=== PATIENT | female | born 1965 | race American Indian/Alaskan Native ===

== ENCOUNTER 2017-01-22 09:26 | Day surgery (SDC) | payer OTHER ==
[2017-01-22] MEDS ORDERED: NACL 0.9% 1000 ML 1,000 ML IV SCH (10:00)
[2017-01-22] MEDS ORDERED: VERSED IV NR (10:00)
[2017-01-22] MEDS ORDERED: PEPCID PO NR (10:00)
[2017-01-22] MEDS ORDERED: DILAUDID IV PRN (10:09)
--- NOTE | 2017-01-22 10:11 | Anesthesia Day of Surgery ---
Anesthesia Day of Surgery - Day of Surgery Patient Examined: Yes Patient H&P Reviewed: Yes Patient is NPO: Yes Beta Blockers: Yes
--- NOTE | 2017-01-22 10:11 | Anesthesia Consultation ---
Anesthesia Consult and Med Hx Date of service: 01/22/17 - Airway Anesthetic Teeth Evaluation: Good ROM Head & Neck: Adequate Mental/Hyoid Distance: Adequate Mallampati Class: Class II Intubation Access Assessment: Probably Good - Pulmonary Exam CTA: Yes - Cardiac Exam Cardiac Exam: RRR - Pre-Operative Health Status ASA Pre-Surgery Classification: ASA4 Proposed Anesthetic Plan: General - Pulmonary Hx Smoking: No Hx Asthma: No Hx Sleep Apnea: No - Cardiovascular System Hx Hypertension: Yes (EF 55-60% (2015)) Hx Coronary Artery Disease: Yes Hx Heart Attack/AMI: Yes (2013) Hx Percutaneous Transluminal Coronary Angioplasty (PTCA): Yes (05-25-14, STENT X 2 ) - Central Nervous System 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
[2017-01-22] MEDS ORDERED: ZOFRAN IV PRN ×2 (11:00→18:55)
[2017-01-22] MEDS ORDERED: ANCEF/STERILE WATER 2 GM/20 ML IV NR (11:00)
[2017-01-22 11:29] LABS: Hematocrit 36.9 % (30.3-42.9); Hemoglobin 12.5 gm/dl (10.1-14.3)
[2017-01-22 11:45] LABS: BUN/Creatinine Ratio 22.5; Calcium 9.6 mg/dL (8.4-10.2); Chloride 102.2 mmol/L (98-107); Potassium 4.6 mmol/L (3.6-5.0)
[2017-01-22] MEDS ORDERED: DILAUDID IV ONE (14:55)
[2017-01-22] MEDS ORDERED: DIPRIVAN 10 MG/ML IV ONE (15:22)
[2017-01-22] MEDS ORDERED: DILAUDID ONE (15:22)
[2017-01-22] MEDS ORDERED: XYLOCAINE MPF 2% ONE (15:28)
[2017-01-22] MEDS ORDERED: NACL 0.9% 500 ML 500 ML ONE (16:39)
[2017-01-22] MEDS ORDERED: MARCAINE 0.5% 30 ML INFILTRATI ONE (16:39)
[2017-01-22] MEDS ORDERED: HEPARIN 10,000 UNITS/10 ML ONE (16:40)
[2017-01-22] MEDS ORDERED: ZOFRAN ONE ×2 (17:06→19:01)
[2017-01-22] MEDS ORDERED: ROBINUL ONE (17:13)
[2017-01-22] MEDS ORDERED: ePHEDrine SULFATE ONE (17:25)
[2017-01-22] MEDS ORDERED: MARCAINE 0.5% INFILTRATI ONE (17:25)
[2017-01-22] MEDS ORDERED: NACL 0.9% IR ONE (17:26)
[2017-01-22] MEDS ORDERED: HEPARIN 10,000 UNITS/10 ML 2,000 UNIT in NACL 0.9% 500 ML 500 ML IR ONE (17:26)
--- NOTE | 2017-01-22 18:00 | Short Stay Summary ---
Short Stay Documentation Date of service: 01/22/17 Narrative H&P: See H&P - History H&P: obtained from office - Allergies and Medications Current Medications: Allergies Iodinated Contrast Media - IV Dye Allergy (Verified 01/15/17 12:44) RENAL FAILURE Sulfa (Sulfonamide Antibiotics) Allergy (Verified 05/25/14 10:39) Swelling Home Medications Medication Instructions Recorded Confirmed Last Taken Type Aspirin EC [Aspirin Enteric Coated 325 mg PO QDAY #30 tablet 06/01/14 01/22/17 01/22/17 05:30 Rx TAB] Rosuvastatin (Nf) [Crestor] 20 mg PO QHS #30 tablet 06/01/14 01/22/17 01/22/17 05:30 Rx glipiZIDE [Glucotrol] 10 mg PO QDAY 07/02/14 01/22/17 01/21/17 08:00 History amLODIPine [Norvasc] 10 mg PO QDAY #30 tablet 07/05/14 01/22/17 01/22/17 05:30 Rx Clopidogrel [Plavix] 75 mg PO QDAY #30 tablet 07/18/16 01/22/17 01/22/17 05:30 Rx Simvastatin [Zocor TAB] 20 mg PO QHS #30 tablet 07/18/16 01/22/17 01/22/17 05: 30 Rx Furosemide [Lasix TAB] 80 mg PO QDAY 01/15/17 01/22/17 01/22/17 05:30 History Metoprolol [Lopressor TAB] 50 mg PO BID 01/15/17 01/22/17 01/22/17 05:30 History hydrALAZINE [Apresoline TAB] 25 mg PO TID 01/15/17 01/22/17 01/22/17 05:30 History Active Medications Cefazolin Sodium (Ancef/Sterile Water 2 Gm/20 Ml) 2 gm IV PREOP NR Stop: 01/22/17 23:01 Hydromorphone HCl (Dilaudid) 0.5 mg IV Q10MIN PRN PRN Reason: Pain , Severe (7-10) Stop: 01/25/17 16:40 Sodium Chloride (Nacl 0.9% 1000 Ml) 1,000 mls @ 75 mls/hr IV DIRECT SELENA Last Admin: 01/22/17 10:54 Dose: 75 mls/hr Midazolam HCl (Versed) 2 mg IV PREOP NR Stop: 01/22/17 23:59 Last Admin: 01/22/17 10:56 Dose: 2 mg - Brief post op/procedure progress note Date of procedure: 01/22/17 Pre-op diagnosis: End-Stage Renal Disease Post-op diagnosis: same Procedure: Creation of Left Brachial Basilic Arteriovenous Fistula Anesthesia: GETA Surgeon: MARIA ESTHER ARMSTRONG Estimated blood loss: minimal Pathology: none Condition: stable - Disposition Condition at discharge: Good Disposition: DC-01 TO HOME OR SELFCARE Short Stay Discharge Plan Activity: other (no heavy lifting with left arm) Wound: open to air, keep clean and dry, other (okay to wash the wound with soap and water but do not soak in water) Follow up with: PRIMARY CARE, [Primary Care Provider] - 7 Days MARIA ESTHER ARMSTRONG MD [Staff Physician] - 14 Days Prescriptions: HYDROcodone/APAP 7.5-325 [Hale 7.5/325] 1 each PO Q6HR PRN #50 tablet PRN Reason: Pain
--- NOTE | 2017-01-22 18:02 | Operative Report ---
Operative Report Operative Report: Date of procedure: 01/22/2017 Pre-operative diagnosis: End-stage Renal Disease Post-operative diagnosis: End-stage Renal Disease Procedure(s): Creation of Left Brachial Artery to Basilic Arteriovenous Fistula Surgeon: Josué Cohen MD [employer] Professor: None Anesthesia: Gen. endotracheal anesthesia EBL: Minimal Counts: Correct Complications: None Condition: Stable Findings: Successful creation of left brachial basilic arteriovenous fistula with palpable thrill at the end of the case. Specimen: None Indication: The patient is a 51-year-old female with history of end-stage renal disease in need of long-term access. Vein mapping demonstrated she was a candidate for creation of a fistula so she was given the risks, benefits, and alternative procedures and consented to procedure. Description of Procedure: The patient was brought to the operating room and laid in supine position after general endotracheal anesthesia was administered the patient was prepped and draped in normal sterile fashion. After anesthetizing the skin a transverse incision was created just below the antecubital crease. Dissection was carried down to the the basilic vein using sharp dissection. The vein was dissected out both proximally and distally and suture ligated and divided distally. I then ran a 3 Karli proximally in the vein, to ensure patency of the vein. I then flushed the vein with heparinized saline and controlled flow with a bulldog clamp. I then dissected out the brachial artery through this incision circumferentially both proximal and distal and controlled th artery with vessel loops. I placed the vessel loops on tension, controlling the flow through the artery, and created an arteriotomy using an 11 blade and Matt scissors. I created an end to side anastomosis between the basilic vein and brachial artery using a 6-0 Prolene in running fashion. Prior to completing the anastomosis I flushed the artery both proximally and distally and then advanced a 3 Karli proximally to break the spasm in the artery. I completed the anastomosis and removed all vessel loops allowing flow into the fistula which had an excellent thrill. I achieved hemostasis with a combination of direct pressure and electrocautery. Once hemostasis was achieved I anesthetized the wound with Marcaine. I closed the wound in 2 layers using 3-0 Vicryl in a running fashion to close the deep dermal layer and 4-0 Monocryl in a running fashion in the subcuticular layer. I dressed the wound with Surgicel. The patient tolerated the procedure well, all sponge needle and instrument counts were correct. The patient was taken to recovery in stable condition.
--- NOTE | 2017-01-22 18:15 | Post Anesthesia Evaluation ---
- Post Anesthesia Evaluation Patient Participated: Yes Airway Patent: Yes Stable Respiratory Function: Yes Nausea/Vomiting: No Temp > 96.8F: Yes Pain Manageable: Yes Adequeate Hydration: Yes Anesthesia Complications: No Block Receding Appropriately: Not Applicable Patient on Ventilator: No
[2017-01-22] MEDS ORDERED: APRESOLINE ONE ×2 (18:18→18:19)
[2017-01-22] MEDS ORDERED: APRESOLINE IV PRN (18:34)
[2017-01-22] MEDS: DILAUDID IV PRN ×2 (18:53→18:55)
[2017-01-22] MEDS ORDERED: REGLAN IV PRN (19:37)
[2017-01-22 20:51] VITALS: BP 176/85
== END 2017-01-22 20:25 | disposition home or self-care (01) ==
LOC: OR 09:26
PROVIDERS: ATTEND Surgery Vascular Surgery
DX: E11.22 Type 2 diabetes mellitus with diabetic chronic kidney disease (principal); I12.0 Hypertensive chronic kidney disease with stage 5 chronic kidney disease or end stage renal disease; N18.6 End stage renal disease; I25.10 Atherosclerotic heart disease of native coronary artery without angina pectoris; D64.9 Anemia, unspecified; E66.9 Obesity, unspecified; Z68.41 Body mass index [BMI] 40.0-44.9, adult; Z95.5 Presence of coronary angioplasty implant and graft; Z86.73 Personal history of transient ischemic attack (TIA), and cerebral infarction without residual deficits; Z87.19 Personal history of other diseases of the digestive system; Z88.1 Allergy status to other antibiotic agents; Z88.2 Allergy status to sulfonamides; Z91.041 Radiographic dye allergy status; Z79.899 Other long term (current) drug therapy; Z79.84 Long term (current) use of oral hypoglycemic drugs; Z90.49 Acquired absence of other specified parts of digestive tract; Z90.710 Acquired absence of both cervix and uterus; Z83.3 Family history of diabetes mellitus; Z82.49 Family history of ischemic heart disease and other diseases of the circulatory system
CPT/HCPCS: 36415; 36821; 80048; 82962; 85014; 85018; C1757; J0360; J1170; J1644; J2250; J2405; J2704; J2765; J7030; J7040

== ENCOUNTER 2018-04-05 10:40 | Day surgery (SDC) | payer OTHER ==
[~2018-04-05 10:40] MED LIST: ANCEF/STERILE WATER 2 GM/20 ML 2 GM/20 ML SYRINGE IV NR; NACL 0.9% 1000 ML 1,000 ML IV SCH
[2018-04-05] MEDS ORDERED: HumuLIN R IV ONE ×2 (11:57→14:30)
[2018-04-05 12:07] LABS: Basophils # (Auto) 0.1 K/mm3 (0.0-0.1); Basophils % (Auto) 0.8 % (0.0-1.8); Eosinophils # (Auto) 0.2 K/mm3 (0.0-0.4); Eosinophils % (Auto) 1.9 % (0.0-4.3); Hematocrit 35.4 % (30.3-42.9); Lymphocytes # (Auto) 1.2 K/mm3 (1.2-5.4); Lymphocytes % (Auto) 14.2 % (13.4-35.0); Mean Corpuscular HGB Conc 34 % (30-34); Mean Corpuscular Hemoglobin 29 pg (28-32); Mean Corpuscular Volume 86 fl (79-97); Monocytes # (Auto) 0.6 K/mm3 (0.0-0.8); Monocytes % (Auto) 6.9 % (0.0-7.3); Platelet Count 255 K/mm3 (140-440); Red Blood Count 4.13 M/mm3 (3.65-5.03); Red Cell Distribution Width 12.8 % (13.2-15.2)
[2018-04-05 12:29] LABS: Calcium 11.1 mg/dL (8.4-10.2)
--- NOTE | 2018-04-05 12:41 | Anesthesia Day of Surgery ---
Anesthesia Day of Surgery - Day of Surgery Patient Examined: Yes Patient H&P Reviewed: Yes Patient is NPO: Yes Beta Blockers: Yes Cardiac Clearance: Yes
--- NOTE | 2018-04-05 12:41 | Anesthesia Consultation ---
Anesthesia Consult and Med Hx Date of service: 04/05/18 - Airway Anesthetic Teeth Evaluation: Good ROM Head & Neck: Adequate Mental/Hyoid Distance: Adequate Mallampati Class: Class I Intubation Access Assessment: Probably Good - Pulmonary Exam CTA: Yes - Cardiac Exam Cardiac Exam: RRR - Pre-Operative Health Status ASA Pre-Surgery Classification: ASA3 Proposed Anesthetic Plan: General - Pulmonary Hx Respiratory Symptoms: No COPD: No - Cardiovascular System Hx Hypertension: Yes Hx Coronary Artery Disease: Yes Hx Heart Attack/AMI: Yes (2013 x2) Hx Percutaneous Transluminal Coronary Angioplasty (PTCA): Yes (PCI to LAD and RCA 2013) Hx Cardia Arrhythmia: No Hx Pacemaker: No - Central Nervous System CVA: Yes (10/2016; no residual weakness) Hx Psychiatric Problems: No - Gastrointestinal Hx Ulcer: Yes Hx Gastroesophageal Reflux Disease: Yes - Endocrine Hx Renal Disease: Yes (CKD 4; has not started HD) Hx Non-Insulin Dependent Diabetes: Yes Hx Thyroid Disease: No - Hematic Hx Anemia: Yes - Other Systems Hx Cancer: No Hx Obesity: Yes - Additional Comments Anesthesia Medical History Comments: TTE 07/2017: normal EF, mild MR. Nuclear stress test 10/2017: apical infarct. Otherwise normal perfusion study. Hx severe PONV with previous anesthetics.
[2018-04-05] MEDS ORDERED: HumuLIN R IV NR (12:56)
[2018-04-05] MEDS ORDERED: REGLAN IV NR (13:00)
[2018-04-05] MEDS ORDERED: VERSED IV NR (13:00)
[2018-04-05] MEDS ORDERED: ZOFRAN IV NR (13:00)
[2018-04-05] MEDS ORDERED: TRANSDERM-SCOP TD NR (13:00)
[2018-04-05] MEDS ORDERED: DILAUDID ONE (13:18)
[2018-04-05 15:16] VITALS: BP 110/60
--- NOTE | 2018-04-05 16:30 | Consultation ---
History of Present Illness - Reason for Consult Consult date: 04/05/18 Requesting physician: MARIA ESTHER ARMSTRONG - History of Present Illness 52 YO Female with DM, Obesity, CKD, Anemia, HTN, MS presents to outpatient surgery for vascular intervention. Consult placed for medical management of uncontrolled diabetes. Pt found to have a serum glucose of 493 preoperatively. Surgical procedure cancelled. Pt seen and evaluated in preop. Pt denies fever, chills, CP, Palpitations, NVD, syncope, trauma, or recent ill contacts. Pt treated with Insulin therapy, IVF resuscitation. Pt serum glucose normalized over several hours with supportive care and glucose monitoring. Past History Past Medical History: CAD, diabetes, hypertension, renal failure Past Surgical History: PTCA, Other Social history: single, lives with family. denies: smoking, alcohol abuse, prescription drug abuse Family history: diabetes, hypertension Medications and Allergies Allergies Allergy/AdvReac Type Severity Reaction Status Date / Time Iodinated Contrast- Oral and Allergy RENAL Verified 04/04/18 13:05 IV Dye FAILURE Sulfa (Sulfonamide Allergy Swelling Verified 04/04/18 13:05 Antibiotics) Home Medications Medication Instructions Recorded Confirmed Last Taken Type Aspirin EC [Aspirin Enteric Coated 325 mg PO QDAY #30 tablet 06/01/14 04/04/18 04/05/18 09:00 Rx TAB] glipiZIDE [Glucotrol] 10 mg PO BID 07/02/14 04/04/18 04/04/18 History Simvastatin [Zocor TAB] 20 mg PO QHS #30 tablet 07/18/16 04/04/18 04/04/18 Rx Furosemide [Lasix TAB] 80 mg PO BID 01/15/17 04/04/18 04/04/18 History Metoprolol [Lopressor TAB] 50 mg PO BID 01/15/17 04/04/18 04/05/18 09:00 History hydrALAZINE [Apresoline TAB] 25 mg PO TID 01/15/17 04/04/18 04/05/18 09:00 History Calcitriol [Rocaltrol] 1 tab PO DAILY 04/05/18 04/05/18 04/05/18 09:00 History Cholecalciferol (Vitamin D3) 50,000 unit PO 1XW 04/05/18 04/05/18 04/03/18 History [Vitamin D3] Active Meds: Active Medications Cefazolin Sodium (Ancef/Sterile Water 2 Gm/20 Ml) 2 gm in 20 mls @ 80 mls/hr IV PREOP NR; Protocol Stop: 04/05/18 21:00 Sodium Chloride (Nacl 0.9% 1000 Ml) 1,000 mls @ 42 mls/hr IV DIRECT SELENA Last Admin: 04/05/18 11:45 Dose: 42 mls/hr Insulin Human Regular (Humulin R) 15 units IV ONCE ONE Stop: 04/05/18 14:31 Last Admin: 04/05/18 14:18 Dose: 15 units Metoclopramide HCl (Reglan) 10 mg IV PREOP NR Stop: 04/05/18 23:59 Last Admin: 04/05/18 13:22 Dose: 10 mg Midazolam HCl (Versed) 2 mg IV PREOP NR Stop: 04/05/18 23:59 Ondansetron HCl (Zofran) 4 mg IV PREOP NR Stop: 04/05/18 23:59 Last Admin: 04/05/18 13:20 Dose: 4 mg Scopolamine (Transderm-Scop) 1 each TD PREOP NR Stop: 04/05/18 23:59 Last Admin: 04/05/18 13:42 Dose: 1 each Review of Systems Constitutional: no weight loss, no weight gain, no fever, no chills Ears, nose, mouth and throat: no ear pain, no ear discharge, no tinnitis, no decreased hearing, no nose pain Breasts: no change in shape, no swelling, no mass Cardiovascular: no chest pain, no orthopnea, no palpitations, no rapid/ irregular heart beat, no edema, no syncope Respiratory: no cough, no cough with sputum, no excessive sputum, no hemoptysis , no shortness of breath Gastrointestinal: no abdominal pain, no nausea, no vomiting, no diarrhea, no change in bowel habits, no hematemesis Genitourinary Female: no dyspareunia, no dysmenorrhea, no pelvic pain Rectal: no pain, no incontinence, no bleeding Musculoskeletal: no neck stiffness, no neck pain, no arm numbness/tingling, no low back pain Integumentary: no rash, no pruritis, no redness, no sores, no wounds Neurological: no head injury, no transient paralysis, no paralysis, no weakness , no parathesias, no numbness, no tingling Psychiatric: no anxiety, no memory loss, no change in sleep habits, no sleep disturbances, no insomnia, no hypersomnia Endocrine: no cold intolerance, no heat intolerance, no polyphagia, no excessive thirst, no polydipsia, no polyuria, no nocturia Hematologic/Lymphatic: no easy bruising, no easy bleeding, no lymphadenopathy, no lymphedema Allergic/Immunologic: no urticaria, no allergic rhinitis, no wheezing, no persistent infections, no anaphylaxis Exam - Constitutional Vitals: Temp Pulse Resp BP Pulse Ox 97.4 F L 73 14 110/60 98 04/05/18 15:10 04/05/18 15:10 04/05/18 15:10 04/05/18 15:10 04/05/18 15:10 General appearance: Present: no acute distress, well-nourished - EENT Eyes: Present: PERRL ENT: hearing intact, clear oral mucosa - Neck Neck: Present: supple, normal ROM - Respiratory Respiratory effort: normal Respiratory: bilateral: CTA - Cardiovascular Heart Sounds: Present: S1 & S2. Absent: rub, click - Extremities Extremities: pulses symmetrical, No edema Peripheral Pulses: within normal limits - Abdominal General gastrointestinal: Present: soft, non-tender, non-distended, normal bowel sounds Female genitourinary: Present: normal - Integumentary Integumentary: Present: clear, warm, dry - Musculoskeletal Musculoskeletal: gait normal, strength equal bilaterally - Psychiatric Psychiatric: appropriate mood/affect, intact judgment & insight - Neurologic Neurologic: CNII-XII intact, moves all extremities Results - Labs CBC & Chem 7: 04/05/18 11:40 04/05/18 15:20 Labs: Abnormal lab results 04/05/18 04/05/18 04/05/18 Range/Units 11:40 11:40 11:51 RDW 12.8 L (13.2-15.2) % Seg Neutrophils % 76.2 H (40.0-70.0) % Sodium 134 L (137-145) mmol/L Chloride 92.1 L (98-107) mmol/L BUN 108 H (7-17) mg/dL Creatinine 5.6 H (0.7-1.2) mg/dL Glucose 493 H (65-100) mg/dL POC Glucose 458 H (70-105) Calcium 11.1 H (8.4-10.2) mg/dL 04/05/18 04/05/18 04/05/18 Range/Units 12:51 13:59 15:27 RDW (13.2-15.2) % Seg Neutrophils % (40.0-70.0) % Sodium (137-145) mmol/L Chloride (98-107) mmol/L BUN (7-17) mg/dL Creatinine (0.7-1.2) mg/dL Glucose (65-100) mg/dL POC Glucose 404 H 327 H 197 H (70-105) Calcium (8.4-10.2) mg/dL Assessment and Plan - Patient Problems (1) Uncontrolled diabetes mellitus Status: Acute Qualifiers: Glycemic state: with hyperglycemia Plan to address problem: IV insulin therapy, accu check q 4 hrs, IVF resustitation, CMP, Pt D/C home with sq insulin, f/u pcp 3-5 days with glucose log tid.
== END 2018-04-05 17:22 | disposition home or self-care (01) ==
LOC: OR 10:40
PROVIDERS: ATTEND Surgery Vascular Surgery
DX: I12.0 Hypertensive chronic kidney disease with stage 5 chronic kidney disease or end stage renal disease (principal); E11.22 Type 2 diabetes mellitus with diabetic chronic kidney disease; N18.6 End stage renal disease; E11.65 Type 2 diabetes mellitus with hyperglycemia; I25.10 Atherosclerotic heart disease of native coronary artery without angina pectoris; E78.00 Pure hypercholesterolemia, unspecified; I25.2 Old myocardial infarction; E66.9 Obesity, unspecified; Z68.37 Body mass index [BMI] 37.0-37.9, adult; Z88.2 Allergy status to sulfonamides; Z86.73 Personal history of transient ischemic attack (TIA), and cerebral infarction without residual deficits; Z86.2 Personal history of diseases of the blood and blood-forming organs and certain disorders involving the immune mechanism; Z88.8 Allergy status to other drugs, medicaments and biological substances; Z79.899 Other long term (current) drug therapy; Z79.82 Long term (current) use of aspirin; Z83.3 Family history of diabetes mellitus; Z98.890 Other specified postprocedural states; Z90.710 Acquired absence of both cervix and uterus; Z90.49 Acquired absence of other specified parts of digestive tract; Z53.8 Procedure and treatment not carried out for other reasons
CPT/HCPCS: 36415; 80048; 82962; 84132; 85025; J0690; J1170; J2405; J2765; J7030; J1815

== ENCOUNTER 2019-11-17 10:30 | Observation (INO) | payer OTHER ==
[2019-11-17] MEDS ORDERED: ASPIRIN 325 MG TAB PO ONE (10:54)
[2019-11-17] MEDS ORDERED: MORPHINE 2 MG/1 ML INJ IV ONE (11:34)
[2019-11-17] MEDS ORDERED: NITROGLYCERIN 2% OINT 1 GM TP ONE (11:34)
[2019-11-17] MEDS ORDERED: ONDANSETRON 4 MG/2 ML INJ IV ONE (11:34)
[2019-11-17 12:14] LABS: Basophils # (Auto) 0.1 K/mm3 (0.0-0.1); Basophils % (Auto) 0.8 % (0.0-1.8); Eosinophils # (Auto) 0.1 K/mm3 (0.0-0.4); Eosinophils % (Auto) 1.7 % (0.0-4.3); Hematocrit 42.8 % (30.3-42.9); Hemoglobin 14.5 gm/dl (10.1-14.3); Lymphocytes # (Auto) 1.2 K/mm3 (1.2-5.4); Lymphocytes % (Auto) 17.6 % (13.4-35.0); Mean Corpuscular HGB Conc 34 % (30-34); Mean Corpuscular Volume 95 fl (79-97); Monocytes # (Auto) 0.6 K/mm3 (0.0-0.8); Monocytes % (Auto) 9.1 % (0.0-7.3); Platelet Count 201 K/mm3 (140-440); Red Blood Count 4.52 M/mm3 (3.65-5.03); Red Cell Distribution Width 13.9 % (13.2-15.2)
[2019-11-17 12:22] LABS: INR 0.93 (0.87-1.13)
[2019-11-17 12:25] LABS: Partial Thromboplastin Time 26.4 Sec. (24.2-36.6)
[2019-11-17 12:35] LABS: Calcium 10.2 mg/dL (8.4-10.2)
[2019-11-17 12:58] LABS: Chol/HDL Ratio 2.87 %
--- NOTE | 2019-11-17 13:09 | Emergency Department Report ---
ED Chest Pain HPI - General Chief Complaint: Chest Pain Stated Complaint: CHEST PAIN Time Seen by Provider: 11/17/19 11:08 Source: patient, EMS Mode of arrival: Stretcher Limitations: No Limitations - History of Present Illness Initial Comments: This is a 53-year-old female who developed dull anterior chest pain which was nonradiating nonpleuritic at dialysis this morning. She states that she was given a nitroglycerin and the pain subsided. She was dialyzed. She believes that her treatment was completed. After her treatment she developed chest pain again which was more severe. She was last transported for emergency evaluation. Patient states that she had a myocardial infarction with 2 stents placed in the past. She was very nonspecific about exactly when this occurred. She states at that time she just had shortness of breath but no chest pain. Patient's chest pain today was described as a dull ache. There were no associated symptoms of diaphoresis, shortness of breath, nausea or vomiting. She presents to the emergency department with persistent pain. Discharge Summary 2016: Hospitalization Condition: Stable Hospital course: 50 YO Female admitted for malignant hypertension, and acute CVA. Pt atmitted to ICU and initiated on cardene drip. Pulmonary consulted. Pt hospital course complicated by renal failure. Nephrology team consulted. Neurology team consulted for acute stroke. Pt treated IA stroke protocol. Pt symptoms gradually improved during hospital course. Pt subsequently transferred to medical floor. Pt medically optimized. Pt evaluated prior to discharge but no significant new physical exam findings since admission. Pt discharged home with home health. Pt instructed to f/u pcp 1wk, and Nephrology and neurology as instructed 34 minutes dedicated to patient discharge and education. Pt counseled regarding increased physical activity, balanced diet, and increased physical activity. Disposition: DISCHARGED TO HOME OR SELFCARE - Discharge Diagnoses (1) CVA (cerebral vascular accident) Status: Acute Qualifiers: CVA mechanism: unspecified Qualified Code(s): I63.9 - Cerebral infarction, unspecified (2) DVT prophylaxis Status: Acute (3) Hyperglycemia Status: Acute (4) Diabetes mellitus, type 2 Status: Chronic (5) Obesity Status: Chronic Qualifiers: Obesity type: unspecified obesity type Obesity severity: morbid Qualified Code(s): E66.01 - Morbid (severe) obesity due to excess calories (6) Malignant hypertension Status: Acute MD Complaint: chest pain -: Gradual Onset: during rest Pain Location: substernal Pain Radiation: none Severity: moderate Severity scale (0 -10): 5 Quality: dull Consistency: constant (Now constant see history above) Improves With: nothing Worsens With: nothing re: denies: nausea, vomting, diaphoresis, dyspnea Other Symptoms: denies: cough, fever, syncope Treatments Prior to Arrival: nitroglycerin - Related Data On Oral Contraceptives: No (?) Home Medications Medication Instructions Recorded Confirmed Last Taken glipiZIDE [Glucotrol] 10 mg PO BID 07/02/14 04/04/18 04/04/18 Furosemide [Lasix TAB] 80 mg PO BID 01/15/17 04/04/18 04/04/18 Metoprolol [Lopressor TAB] 50 mg PO BID 01/15/17 04/04/18 04/05/18 09:00 hydrALAZINE [Apresoline TAB] 25 mg PO TID 01/15/17 04/04/18 04/05/18 09:00 Cholecalciferol (Vitamin D3) 50,000 unit PO 1XW 04/05/18 04/05/18 04/03/18 [Vitamin D3] calcitrioL [Rocaltrol] 1 tab PO DAILY 04/05/18 04/05/18 04/05/18 09:00 Previous Rx's Medication Instructions Recorded Last Taken Type Aspirin EC [Ecotrin] 325 mg PO QDAY #30 tablet 06/01/14 04/05/18 09:00 Rx Simvastatin (Nf) [Zocor TAB] 20 mg PO QHS #30 tablet 07/18/16 04/04/18 Rx Allergies Allergy/AdvReac Type Severity Reaction Status Date / Time Iodinated Contrast Media Allergy RENAL Verified 04/04/18 13:05 FAILURE Sulfa (Sulfonamide Allergy Swelling Verified 04/04/18 13:05 Antibiotics) Heart Score - HEART Score History: Moderately suspicious EKG: Non-specific Age: 45-65 Risk factors: > 3 risk factors or hx of atherosclerotic disease Troponin: 1-3x normal limit HEART Score: 6 - Critical Actions Critical Actions: 4-6 pts:12-16.6% risk of adverse cardiac event. Should be admitted ED Review of Systems ROS: Stated complaint: CHEST PAIN Other details as noted in HPI Constitutional: denies: chills, fever Eyes: denies: eye pain, eye discharge, vision change ENT: denies: ear pain, throat pain Respiratory: denies: cough, shortness of breath, wheezing Cardiovascular: as per HPI, chest pain. denies: palpitations Endocrine: no symptoms reported Gastrointestinal: denies: abdominal pain, nausea, diarrhea Genitourinary: denies: urgency, dysuria, discharge Musculoskeletal: denies: back pain, joint swelling, arthralgia Skin: denies: rash, lesions Neurological: denies: headache, weakness, paresthesias Psychiatric: denies: anxiety, depression Hematological/Lymphatic: denies: easy bleeding, easy bruising ED Past Medical Hx - Past Medical History Previous Medical History?: Yes Hx Hypertension: Yes Hx Heart Attack/AMI: Yes (2013 x2) Hx Diabetes: Yes Hx Renal Disease: Yes (ESRD on HD) Hx COPD: No Additional medical history: Fibromyalgia, gastric ulcer - Surgical History Past Surgical History?: Yes Hx Coronary Stent: Yes (x2) Hx Pacemaker: No Hx Cholecystectomy: Yes Additional Surgical History: boils/cysts removed - Social History Smoking Status: Never Smoker Substance Use Type: None - Medications Home Medications: Home Medications Medication Instructions Recorded Confirmed Last Taken Type Aspirin EC [Ecotrin] 325 mg PO QDAY #30 tablet 06/01/14 04/04/18 04/05/18 09:00 Rx glipiZIDE [Glucotrol] 10 mg PO BID 07/02/14 04/04/18 04/04/18 History Simvastatin (Nf) [Zocor TAB] 20 mg PO QHS #30 tablet 07/18/16 04/04/18 04/04/18 Rx Furosemide [Lasix TAB] 80 mg PO BID 01/15/17 04/04/18 04/04/18 History Metoprolol [Lopressor TAB] 50 mg PO BID 01/15/17 04/04/18 04/05/18 09:00 History hydrALAZINE [Apresoline TAB] 25 mg PO TID 01/15/17 04/04/18 04/05/18 09:00 History Cholecalciferol (Vitamin D3) 50,000 unit PO 1XW 04/05/18 04/05/18 04/03/18 History [Vitamin D3] calcitrioL [Rocaltrol] 1 tab PO DAILY 04/05/18 04/05/18 04/05/18 09:00 History ED Physical Exam - General Limitations: No Limitations General appearance: other (Uncomfortable) - Head Head exam: Present: atraumatic, normocephalic - Eye Eye exam: Present: normal appearance. Absent: scleral icterus - ENT ENT exam: Present: mucous membranes moist - Neck Neck exam: Present: normal inspection. Absent: tenderness, meningismus - Respiratory Respiratory exam: Present: normal lung sounds bilaterally. Absent: respiratory distress - Cardiovascular Cardiovascular Exam: Present: regular rate, normal rhythm. Absent: systolic murmur, diastolic murmur, rubs, gallop - GI/Abdominal GI/Abdominal exam: Present: soft, normal bowel sounds. Absent: distended, tenderness, guarding, rebound - Extremities Exam Extremities exam: Present: other (Functional fistula with thrill left arm) - Back Exam Back exam: Present: normal inspection - Neurological Exam Neurological exam: Present: alert, oriented X3, CN II-XII intact. Absent: motor sensory deficit - Psychiatric Psychiatric exam: Present: normal affect, anxious - Skin Skin exam: Present: warm, dry, intact, normal color. Absent: rash ED Course Vital Signs 11/17/19 11/17/19 11/17/19 10:45 11:47 13:10 Temperature 98.6 F Pulse Rate 92 H 88 Respiratory 16 16 Rate Blood Pressure 126/74 134/76 Blood Pressure 117/77 [Left] O2 Sat by Pulse 100 99 Oximetry - Reevaluation(s) Reevaluation #1: Troponin found to be elevated. Consult to [facility]. 11/17/19 13:12 11/17/19 13:19 Patient's chest pain has improved. Her blood pressure is stable. Awaiting cardiology consult. Hospitalist to admit. Review of the patient's previous troponins show some minor elevation but not to this degree. TEDDY score - Teddy Score Age > 65: (0) No Aspirin use within the Past 7 Days: (1) Yes 3 or more CAD Risk Factors: (1) Yes 2 or more Angina events in past 24 hrs: (1) Yes Known CAD with more than 50% Stenosis: (0) No Elevated Cardiac Markers: (1) Yes ST Deviation Greater than 0.5mm: (1) Yes TEDDY Score: 5 ED Medical Decision Making - Lab Data Result diagrams: 11/17/19 11:28 11/17/19 11:28 Laboratory Results - last 24 hr 11/17/19 11/17/19 11/17/19 11:28 11:28 11:48 WBC 6.7 RBC 4.52 Hgb 14.5 H Hct 42.8 MCV 95 MCH 32 MCHC 34 RDW 13.9 Plt Count 201 Lymph % (Auto) 17.6 [place] % (Auto) 9.1 H Eos % (Auto) 1.7 Baso % (Auto) 0.8 Lymph # 1.2 [place] # 0.6 Eos # 0.1 Baso # 0.1 Seg Neutrophils % 70.8 H Seg Neutrophils # 4.8 PT 12.6 INR 0.93 APTT 26.4 Sodium 141 Potassium 4.9 Chloride 90.5 L Carbon Dioxide 27 Anion Gap 28 BUN 26 H Creatinine 5.1 H Estimated GFR 11 BUN/Creatinine Ratio 5 Glucose 153 H Calcium 10.2 Troponin T 0.155 H* Triglycerides 91 Cholesterol 201 H LDL Cholesterol Direct 124 HDL Cholesterol 70 H Cholesterol/HDL Ratio 2.87 Laboratory Results - last 24 hr 11/17/19 11/17/19 11/17/19 11:28 11:28 11:48 WBC 6.7 RBC 4.52 Hgb 14.5 H Hct 42.8 MCV 95 MCH 32 MCHC 34 RDW 13.9 Plt Count 201 Lymph % (Auto) 17.6 [place] % (Auto) 9.1 H Eos % (Auto) 1.7 Baso % (Auto) 0.8 Lymph # 1.2 [place] # 0.6 Eos # 0.1 Baso # 0.1 Seg Neutrophils % 70.8 H Seg Neutrophils # 4.8 PT 12.6 INR 0.93 APTT 26.4 Sodium 141 Potassium 4.9 Chloride 90.5 L Carbon Dioxide 27 Anion Gap 28 BUN 26 H Creatinine 5.1 H Estimated GFR 11 BUN/Creatinine Ratio 5 Glucose 153 H Calcium 10.2 Troponin T 0.155 H* Triglycerides 91 Cholesterol 201 H LDL Cholesterol Direct 124 HDL Cholesterol 70 H Cholesterol/HDL Ratio 2.87 - EKG Data -: EKG Interpreted by Me EKG shows normal: sinus rhythm Rate: normal - Radiology Data Radiology results: image reviewed (No acute process) Critical care attestation.: If time is entered above; I have spent that time in minutes in the direct care of this critically ill patient, excluding procedure time. ED Disposition Clinical Impression: Acute coronary syndrome, End stage renal disease on dialysis, Diabetes 1.5, managed as type 2 Disposition: DC-09 OP ADMIT IP TO THIS HOSP Is pt being admited?: Yes Does the pt Need Aspirin: Yes Condition: Stable Instructions: Diabetes Mellitus Type 2 in Adults (ED) Time of Disposition: 13:21
[2019-11-17 13:25] LABS: Creatine Kinase MB 3.6 ng/mL (0.0-4.0)
[2019-11-17 13:27] LABS: Alanine Aminotransferase 23 units/L (7-56); Albumin 4.9 g/dL (3.9-5)
[2019-11-17 13:28] LABS: Bilirubin,Direct < 0.2 mg/dL (0-0.2)
--- NOTE | 2019-11-17 14:17 | XRay Report ---
CHEST 1 VIEW INDICATION / CLINICAL INFORMATION: MAIN: Chest Pain. COMPARISON: 07/02/2014 FINDINGS: SUPPORT DEVICES: None. HEART / MEDIASTINUM: No significant abnormality. LUNGS / PLEURA: No significant pulmonary or pleural abnormality. No pneumothorax. ADDITIONAL FINDINGS: No significant additional findings. IMPRESSION: 1. No acute findings. No interval change. Signer Name: Kaylynn Robledo MD Signed: 11/17/2019 2:12 PM Workstation Name: [id number]
--- NOTE | 2019-11-17 14:43 | Consultation ---
History of Present Illness Consult date: 11/17/19 Requesting physician: DREA DELGADILLO Consult reason: chest pain, elevated troponin History of present illness: The pt is a 53 YO female with a past medical history of CAD s/p PCI, HTN, DM, HLP, ESRD on HD, CVA. She is followed in our office by Dr. Gamez. She presented with c/o chest pain. She states that chest pain awoke her from sleep at 3AM today. The pain felt like a midsternal tightness. The pain lasted several minutes and then resolved so she went back to sleep. She went to HD as scheduled and was undergoing dialysis when she felt the chest pain again. She was given SL nitro by dialysis nurse and states that her pain resolved. Pt denies any cough, SOB, fever, chills, palpitations, n/v, diaphoresis, dizziness or syncope. Prior to this morning, she was in her normal state of health with no chest pain. LHC done 05/2014 for STEMI showed severe 2 vessel disease with mid LAD stenosis and 95% mid RCA stenosis, pt underwent PCI of mid LAD. LHC done 06/2014 with PCI to RCA. Echo done 11/2018 showed EF 55-60%, mild to mod MR, trace TR. PET MPI done 10/2017 was negative for ischemia, EF 60%. Past History Past Medical History: other (as per HPI) Medications and Allergies Allergies Allergy/AdvReac Type Severity Reaction Status Date / Time Iodinated Contrast Media Allergy RENAL Verified 04/04/18 13:05 FAILURE Sulfa (Sulfonamide Allergy Swelling Verified 04/04/18 13:05 Antibiotics) Home Medications Medication Instructions Recorded Confirmed Last Taken Type Aspirin EC [Ecotrin] 325 mg PO QDAY #30 tablet 06/01/14 11/17/19 04/05/18 09:00 Rx glipiZIDE [Glucotrol] 10 mg PO BID 07/02/14 11/17/19 04/04/18 History Simvastatin (Nf) [Zocor TAB] 20 mg PO QHS #30 tablet 07/18/16 11/17/19 04/04/18 Rx Furosemide [Lasix TAB] 80 mg PO BID 01/15/17 11/17/19 04/04/18 History Cholecalciferol (Vitamin D3) 50,000 unit PO 1XW 04/05/18 11/17/19 04/03/18 History [Vitamin D3] calcitrioL [Rocaltrol] 1 tab PO DAILY 04/05/18 11/17/19 04/05/18 09:00 History Review of Systems Constitutional: no weight loss, no weight gain, no fever, no chills, no sweats Ears, nose, mouth and throat: no ear pain, no nose pain, no sinus pressure, no sinus pain Cardiovascular: chest pain, no orthopnea, no palpitations, no rapid/irregular heart beat, no edema, no syncope, no lightheadedness, no shortness of breath Respiratory: no cough, no shortness of breath, no dyspnea on exertion, no congestion, no wheezing, no pain on inspiration Gastrointestinal: no abdominal pain, no nausea, no vomiting, no diarrhea, no constipation, no change in bowel habits Genitourinary Female: no pelvic pain, no flank pain, no dysuria, no urinary frequency, no urgency Musculoskeletal: no neck stiffness, no neck pain, no shooting arm pain, no arm numbness/tingling, no low back pain, no shooting leg pain Integumentary: no rash, no pruritis, no redness, no sores, no wounds Neurological: no head injury, no paralysis, no weakness, no parathesias, no numbness, no tingling, no seizures, no syncope Psychiatric: no anxiety Endocrine: no cold intolerance, no heat intolerance Hematologic/Lymphatic: no easy bruising Allergic/Immunologic: no urticaria Physical Examination Vital Signs Temp Pulse Resp BP Pulse Ox 98.6 F 92 H 16 126/74 100 11/17/19 10:45 11/17/19 10:45 11/17/19 10:45 11/17/19 10:45 11/17/19 10:45 General appearance: no acute distress HEENT: Positive: PERRL, Normocephaly, Mucus Membranes Moist Neck: Positive: neck supple, trachea midline Cardiac: Positive: Reg Rate and Rhythm, S1/S2 Lungs: Positive: Decreased Breath Sounds Neuro: Positive: Grossly Intact Abdomen: Negative: Tender Skin: Negative: Rash Musculoskeletal: No Pain Extremities: Absent: edema Results 11/17/19 11:28 11/17/19 11:28 Cardiac Enzymes 11/17/19 Range/Units 13:21 AST 26 (5-40) units/L CK-MB (CK-2) 3.6 (0.0-4.0) ng/mL Coagulation 11/17/19 Range/Units 11:48 PT 12.6 (12.2-14.9) Sec. INR 0.93 (0.87-1.13) APTT 26.4 (24.2-36.6) Sec. Lipids 11/17/19 Range/Units 11:28 Triglycerides 91 (2-149) mg/dL Cholesterol 201 H (50-199) mg/dL HDL Cholesterol 70 H (40-59) mg/dL Cholesterol/HDL Ratio 2.87 % CBC 11/17/19 Range/Units 11:28 WBC 6.7 (4.5-11.0) K/mm3 RBC 4.52 (3.65-5.03) M/mm3 Hgb 14.5 H (10.1-14.3) gm/dl Hct 42.8 (30.3-42.9) % Plt Count 201 (140-440) K/mm3 Lymph # 1.2 (1.2-5.4) K/mm3 [place] # 0.6 (0.0-0.8) K/mm3 Eos # 0.1 (0.0-0.4) K/mm3 Baso # 0.1 (0.0-0.1) K/mm3 Comprehensive Metabolic Panel 11/17/19 11/17/19 Range/Units 11:28 13:21 Sodium 141 (137-145) mmol/L Potassium 4.9 (3.6-5.0) mmol/L Chloride 90.5 L (98-107) mmol/L Carbon Dioxide 27 (22-30) mmol/L BUN 26 H (7-17) mg/dL Creatinine 5.1 H (0.7-1.2) mg/dL Glucose 153 H (65-100) mg/dL Calcium 10.2 (8.4-10.2) mg/dL Direct Bilirubin < 0.2 (0-0.2) mg/dL AST 26 (5-40) units/L ALT 23 (7-56) units/L Alkaline Phosphatase 198 H (35-129) units/L Total Protein 9.3 H (6.3-8.2) g/dL Albumin 4.9 (3.9-5) g/dL - Imaging and Cardiology Echo: report reviewed (11/2018 showed EF 55-60%, mild to mod MR, trace TR. ) Cardiac cath: report reviewed (C done 05/2014 for STEMI showed severe 2 vessel disease with mid LAD stenosis and 95% mid RCA stenosis, pt underwent PCI of mid LAD. C done 06/2014 with PCI to RCA. ) EKG: report reviewed, image reviewed EKG interpretations - Telemetry EKG Rhythm: Sinus Rhythm - EKG Sinus rhythms and dysrhythmias: sinus rhythm Myocardial infarction: inferior CA (old age inde, anterior CA (old age or i Assessment and Plan Pt is chest pain free on evaluation. ECG with no acute ischemic changes. Pushpa are noted to be elevated - suspect NSTEMI type II. Can consider heparinization is chest pain returns or Pushpa trend upwards. Currently stable cardiac status. Recommend resumption of home cardiac regimen and plan for lexiscan MPI stress test in AM. NPO after MN. The patient has been seen in conjunction with Dr. Catherine Lara who agrees with the assessment and plan of care. - Patient Problems (1) Chest pain Current Visit: Yes Status: Acute (2) NSTEMI (non-ST elevated myocardial infarction) Current Visit: Yes Status: Acute Plan to address problem: suspect type II (3) CAD (coronary artery disease) Current Visit: Yes Status: Acute (4) Stented coronary artery Current Visit: Yes Status: Chronic (5) End stage renal disease on dialysis Current Visit: Yes Status: Chronic (6) HTN (hypertension) Current Visit: Yes Status: Chronic (7) Diabetes Current Visit: Yes Status: Chronic (8) Hyperlipidemia Current Visit: Yes Status: Chronic (9) History of CVA (cerebrovascular accident) Current Visit: Yes Status: Chronic
[2019-11-17] MEDS: MORPHINE 2 MG/1 ML INJ IV PRN (21:38)
[2019-11-17] MEDS ORDERED: PRAVASTATIN 40 MG TAB PO SCH (22:00)
[2019-11-17] MEDS ORDERED: NON-FORMULARY EACH (Simvastatin 20 MG) PO SCH (22:00)
--- NOTE | 2019-11-18 00:12 | Event Note ---
Date: 11/17/19 See history and physical in the reports Chest pain rule out [place] End-stage renal disease Uncontrolled hypertension Lexiscan in the morning
[2019-11-18] MEDS ORDERED: METOCLOPRAMIDE 10 MG/2 ML INJ IV PRN (00:18)
[2019-11-18] MEDS ORDERED: oxyCODONE /ACETAMINOPHEN 5-325MG TAB PO PRN (00:18)
[2019-11-18] MEDS ORDERED: ACETAMINOPHEN 325 MG TAB PO PRN (00:18)
[2019-11-18] MEDS ORDERED: ONDANSETRON 4 MG/2 ML INJ IV PRN (00:18)
[2019-11-18] MEDS ORDERED: HYDROmorphone 1 MG/1 ML INJ IV PRN (00:18)
[2019-11-18] MEDS: FUROSEMIDE 40 MG TAB PO SCH ×2 (00:53→10:17)
[2019-11-18] MEDS: glipiZIDE 5 MG TAB PO SCH ×2 (00:53→10:17)
--- NOTE | 2019-11-18 01:10 | History and Physical Report ---
CHIEF COMPLAINT: Left-sided chest pain since a.m. HISTORY OF PRESENT ILLNESS: A 53-year-old with history of end-stage renal disease, cerebrovascular accident, hypertension and type 2 diabetes and obesity, comes in for left-sided chest pain since a.m. She was dialyzed. After her treatment was completed, she developed chest pain which was more severe. She was transported by emergency medical services. Chest pain is about 6 on a scale of 1-10. Retrosternal. Not radiating. No diaphoresis. No nausea and no vomiting. No recent exposure to any coronavirus patients. No fever or chills. The patient had 2 stents placed in the past. No exacerbating or relieving factors. The patient was admitted in 2016 for acute CVA. Old chart was reviewed. PAST MEDICAL HISTORY: As mentioned, hypertension, congestive heart failure, end-stage renal disease, type 2 diabetes. PAST SURGICAL HISTORY: Coronary stents x 2, cholecystectomy. AV fistula. SOCIAL HISTORY: Does not smoke. FAMILY HISTORY: Hypertension. CURRENT MEDICATIONS: On the chart. PHYSICAL EXAMINATION: GENERAL: Middle-aged female, comfortable in bed. VITAL SIGNS: Temperature 99.4 and 97.7, pulse is 88, respirations 16, temperature 98, blood pressure 117/77. HEENT: Unremarkable. NECK: Supple, no lymphadenopathy, no thyromegaly. LUNGS: Clear to auscultation and percussion. Good air entry. CARDIOVASCULAR: S1, S2 heard. No gallop, no murmur, no rub. Apical impulse in left fifth intercostal space and midclavicular line. ABDOMEN: Soft and benign. No hepatosplenomegaly. No guarding, no rigidity. Hernial orifices are normal. EXTREMITIES: Good pedal pulses. No pedal edema. CENTRAL NERVOUS SYSTEM: Alert and oriented x 4, nonfocal exam. SKIN: Normal. LABORATORY DATA: Troponin is high, 0.155, 0.165 and 0.185. CBC is near normal. Cholesterol is 201. Glucose is 153, BUN and creatinine is 26 and 5.1. EKG is normal sinus rhythm. No acute ST-T wave changes. ASSESSMENT AND PLAN: 1. Chest pain, rule out myocardial infarction, chest pain protocol. 2. Non-ST elevation myocardial infarction type 2 secondary to end-stage renal disease. Troponin is elevated, but we will get Lexiscan in the morning. Had 2 stents in the past. 3. Coronary artery disease. Continue aspirin. 4. Congestive heart failure. Continue furosemide. 5. Type 2 diabetes. Continue glipizide and coverage. 6. Hyperlipidemia. Continue simvastatin. 7. Vitamin D deficiency, vitamin D 50,000 once a week, now on hold. 8. End-stage renal disease. Continue hemodialysis as per schedule. Nephrology consulted. 9. Deep venous thrombosis prophylaxis, heparin 5000 q. 12. JOB# [id number] RICHI/AKIN MADDEND
[2019-11-18] MEDS ORDERED: NITROGLYCERIN 0.4 MG TAB SUBL SL ONE (03:34)
[2019-11-18 04:53] LABS: Calcium 9.6 mg/dL (8.4-10.2)
[2019-11-18] MEDS: INSULIN LISPRO 100 UNIT/ML SUB-Q SCH ×3 (08:00→17:44)
[2019-11-18] MEDS ORDERED: REGADENOSON 0.4 MG/5 ML INJ IV ONE ×2 (08:01→08:07)
[2019-11-18] MEDS ORDERED: MORPHINE 2 MG/1 ML INJ ONE (09:10)
[2019-11-18] MEDS: MORPHINE 2 MG/1 ML INJ IV PRN (09:15)
[2019-11-18] MEDS ORDERED: METOCLOPRAMIDE 10 MG/2 ML INJ ONE (09:16)
[2019-11-18] MEDS ORDERED: NITROGLYCERIN 0.4 MG TAB SUBL SL PRN (09:30)
--- NOTE | 2019-11-18 09:40 | Treadmill Report ---
THALLIUM REPORT REASON FOR STUDY: Chest pain. STRESS TEST PROTOCOL: The patient received 0.4 mg of Lexiscan intravenously over 10 seconds. Tc-99m Tetrofosmin was subsequently injected. Baseline ECG: Normal sinus rhythm.Inferior and anterolateral myocardial infarction of undetermined age. Lexiscan ECG:No ischemic changes. No chest pain. No arrhythmias. IMPRESSION: Electrocardiographically negative stress test. Nuclear imaging report to follow. JOB# [id number] WES/NTS MARYANNED
[2019-11-18] MEDS ORDERED: ASPIRIN EC 325 MG TAB PO SCH (10:00)
[2019-11-18] MEDS ORDERED: FAMOTIDINE 10 MG TAB PO SCH (10:00)
[2019-11-18] MEDS ORDERED: CALCITRIOL 0.5 MCG CAP PO SCH (10:00)
--- NOTE | 2019-11-18 10:34 | Progress Note ---
Assessment and Plan Lexiscan stress MPI. - Patient Problems (1) Chest pain Current Visit: Yes Status: Acute (2) NSTEMI (non-ST elevated myocardial infarction) Current Visit: Yes Status: Acute (3) CAD (coronary artery disease) Current Visit: Yes Status: Chronic Qualifiers: Coronary Disease-Associated Artery/Lesion type: habematolel artery (4) Stented coronary artery Current Visit: Yes Status: Chronic (5) End stage renal disease on dialysis Current Visit: Yes Status: Chronic (6) HTN (hypertension) Current Visit: Yes Status: Chronic (7) Diabetes Current Visit: Yes Status: Chronic Qualifiers: Diabetes mellitus type: type 2 (8) History of CVA (cerebrovascular accident) Current Visit: Yes Status: Chronic Subjective Date of service: 11/18/19 Principal diagnosis: NSTEMI Interval history: Still has intermittent CP. Objective Vital Signs Temp Pulse Resp BP BP Pulse Ox 11/18/19 04:00 80 11/18/19 03:56 98.8 F 87 18 117/54 94 11/18/19 00:05 91 H 11/17/19 23:28 97.7 F 86 18 103/62 93 11/17/19 21:38 17 11/17/19 19:58 99.4 F 90 20 136/64 96 11/17/19 19:50 81 17 11/17/19 18:31 85 16 117/71 96 11/17/19 13:10 88 16 117/77 99 11/17/19 11:47 134/76 11/17/19 10:45 98.6 F 92 H 16 126/74 100 - Physical Examination General: No Apparent Distress HEENT: Positive: PERRL, Normocephaly, Mucus Membranes Moist Neck: Positive: neck supple, trachea midline Cardiac: Positive: Reg Rate and Rhythm, S1/S2 Lungs: Positive: clear to auscultation Neuro: Positive: Grossly Intact Abdomen: Positive: Soft, Active Bowel Sounds. Negative: Tender Skin: Negative: Rash Musculoskeletal: Normal Range of Motion Extremities: Absent: edema - Labs and Meds Cardiac Enzymes 11/17/19 Range/Units 13:21 AST 26 (5-40) units/L CK-MB (CK-2) 3.6 (0.0-4.0) ng/mL Coagulation 11/17/19 Range/Units 11:48 PT 12.6 (12.2-14.9) Sec. INR 0.93 (0.87-1.13) APTT 26.4 (24.2-36.6) Sec. Lipids 11/17/19 Range/Units 11:28 Triglycerides 91 (2-149) mg/dL Cholesterol 201 H (50-199) mg/dL HDL Cholesterol 70 H (40-59) mg/dL Cholesterol/HDL Ratio 2.87 % CBC 11/17/19 Range/Units 11:28 WBC 6.7 (4.5-11.0) K/mm3 RBC 4.52 (3.65-5.03) M/mm3 Hgb 14.5 H (10.1-14.3) gm/dl Hct 42.8 (30.3-42.9) % Plt Count 201 (140-440) K/mm3 Lymph # 1.2 (1.2-5.4) K/mm3 [place] # 0.6 (0.0-0.8) K/mm3 Eos # 0.1 (0.0-0.4) K/mm3 Baso # 0.1 (0.0-0.1) K/mm3 Comprehensive Metabolic Panel 11/17/19 11/17/19 11/18/19 Range/Units 11:28 13:21 04:04 Sodium 141 140 (137-145) mmol/L Potassium 4.9 5.4 H (3.6-5.0) mmol/L Chloride 90.5 L 91.0 L (98-107) mmol/L Carbon Dioxide 27 29 (22-30) mmol/L BUN 26 H 46 H (7-17) mg/dL Creatinine 5.1 H 7.1 H (0.7-1.2) mg/dL Glucose 153 H 202 H (65-100) mg/dL Calcium 10.2 9.6 (8.4-10.2) mg/dL Direct Bilirubin < 0.2 (0-0.2) mg/dL AST 26 (5-40) units/L ALT 23 (7-56) units/L Alkaline Phosphatase 198 H (35-129) units/L Total Protein 9.3 H (6.3-8.2) g/dL Albumin 4.9 (3.9-5) g/dL - Imaging and Cardiology EKG: report reviewed, image reviewed Echo: report reviewed (11/2018 showed EF 55-60%, mild to mod MR, trace TR. ) Cardiac cath: report reviewed (LHC done 05/2014 for STEMI showed severe 2 vessel disease with mid LAD stenosis and 95% mid RCA stenosis, pt underwent PCI of mid LAD. LHC done 06/2014 with PCI to RCA. ) - EKG Sinus rhythms and dysrhythmias: sinus rhythm Myocardial infarction: inferior [place] (old age inde, anterior [place] (old age or i
--- NOTE | 2019-11-18 12:19 | Treadmill Report ---
THALLIUM TEST REASON FOR STUDY: Chest pain. IMAGING PROTOCOL: The patient received 10 mCi of Tc-99m Tetrofosmin for rest imaging, and 28 mCi of Tc-99m Tetrofosmin for stress imaging. Imaging for all procedures was completed 30-90 minutes following the initial injection of Technetium 99m Tetrofosmin. SPECT imaging in the 180 degree arc was performed in the right anterior oblique projection. Computerized reconstruction of the images was performed for analysis. NUCLEAR IMAGING RESULTS: Normal left ventricular cavity size with no change from stress to rest. Distribution of radionuclide within the left ventricle revealed a large area of photo-induction involving the apex. The degree of photo-reduction is severe. Rest imaging does not show any significant improvement in this defect. In addition, there is a medium-size area of photo-induction involving the inferolateral wall. The degree of photo-reduction is severe. Rest imaging does not show any significant improvement in this defect. Gated SPECT imaging revealed mild global left ventricular systolic dysfunction with severe apical hypokinesis, and moderate septal and inferolateral hypokinesis. The calculated left ventricular ejection fraction is 48%. IMPRESSION: arge fixed apical defect. Medium-size fixed inferolateral defect. Mild global left ventricular systolic dysfunction with severe apical hypokinesis and moderate septal and inferolateral hypokinesis. EF 48%. These findings suggest prior infarction in the left anterior descending and left circumflex coronary artery territories. No evidence of significant stress-induced ischemia. JOB# [id number] WES/AKIN LEW
--- NOTE | 2019-11-18 13:36 | Consultation ---
History of Present Illness - Reason for Consult end stage renal disease - History of Present Illness Pleasant 53 y/o obese AAF with h/o ESRD in the setting of DM, HTN, CAD, well known to our outpatient dialysis unit at [facility], on a MWF HD schedule, presented to the ER from nutritional services host office, after complaining of chest paint that started yesterday morning at 3AM that apparently woke her up from sleep. She went to her regular dialysis session, and received sublingual nitroglycerin at the dialysis unit, and was able to complete her HD session. She went to nutritional services host afterwards and began to complain of chest pain again, for which she was sent to the ED for further evaluation. Patient underwent stress test this am, and is pending results at this time. She is nauseous and dry heaving on examination this afternoon. Nephrology consulted for chronic HD needs. Past History Past Medical History: diabetes, ESRD, hypertension, hyperlipidemia, other (as per HPI) Past Surgical History: No surgical history, Other (AVF creation ) Social history: no significant social history, , lives with family Family history: no significant family history Medications and Allergies Allergies Allergy/AdvReac Type Severity Reaction Status Date / Time Iodinated Contrast Media Allergy RENAL Verified 04/04/18 13:05 FAILURE Sulfa (Sulfonamide Allergy Swelling Verified 04/04/18 13:05 Antibiotics) Home Medications Medication Instructions Recorded Confirmed Last Taken Type Aspirin EC [Ecotrin] 325 mg PO QDAY #30 tablet 06/01/14 11/17/19 04/05/18 09:00 Rx glipiZIDE [Glucotrol] 10 mg PO BID 07/02/14 11/17/19 04/04/18 History Simvastatin (Nf) [Zocor TAB] 20 mg PO QHS #30 tablet 07/18/16 11/17/19 04/04/18 Rx Furosemide [Lasix TAB] 80 mg PO BID 01/15/17 11/17/19 04/04/18 History Cholecalciferol (Vitamin D3) 50,000 unit PO 1XW 04/05/18 11/17/19 04/03/18 History [Vitamin D3] calcitrioL [Rocaltrol] 1 tab PO DAILY 04/05/18 11/17/19 04/05/18 09:00 History Active Meds: Active Medications Acetaminophen (Tylenol) 650 mg PO Q4H PRN PRN Reason: Pain MILD(1-3)/Fever >100.5/[place] Aspirin (Ecotrin) [address] [facility] Last Admin: 11/18/19 10:17 Dose: 325 mg Documented by: Calcitriol (Rocaltrol) 0.[address] [facility] Last Admin: 11/18/19 10:18 Dose: 0.5 mcg Documented by: Famotidine (Pepcid) [address] [facility] Last Admin: 11/18/19 10:18 Dose: 10 mg Documented by: Furosemide (Lasix) [address] [facility] Last Admin: 11/18/19 10:17 Dose: 80 mg Documented by: Glipizide (Glucotrol) [address] [facility] Last Admin: 11/18/19 10:17 Dose: 10 mg Documented by: Hydromorphone HCl (Dilaudid) 0.5 mg IV Q3H PRN PRN Reason: Pain , Severe (7-10) Last Admin: 11/18/19 10:14 Dose: 0.5 mg Documented by: Insulin Human Lispro (Humalog) 0 unit SUB-Q ACHS [facility]; Protocol Last Admin: 11/18/19 08:00 Dose: Not Given Documented by: Metoclopramide HCl (Reglan) 10 mg IV Q6H PRN PRN Reason: Nausea And Vomiting Last Admin: 11/18/19 09:23 Dose: 10 mg Documented by: Morphine Sulfate (Morphine) 2 mg IV Q4H PRN PRN Reason: Pain , Severe (7-10) Stop: 11/19/19 21:31 Last Admin: 11/18/19 09:15 Dose: 2 mg Documented by: Nitroglycerin (Nitrostat) 0.4 mg SL .Q5MIN PRN PRN Reason: Chest Pain Ondansetron HCl (Zofran) 4 mg IV Q8H PRN PRN Reason: Nausea And Vomiting Oxycodone/Acetaminophen (Percocet 5/325) 1 tab PO Q6H PRN PRN Reason: Pain, Moderate (4-6) Pravastatin Sodium (Pravachol) [address] [facility] Last Admin: 11/17/19 21:38 Dose: 40 mg Documented by: Sodium Chloride (Sodium Chloride Flush Syringe 10 Ml) [address] [facility] Last Admin: 11/18/19 00:55 Dose: 10 ml Documented by: Sodium Chloride (Sodium Chloride Flush Syringe 10 Ml) 10 ml IV PRN PRN PRN Reason: LINE FLUSH Review of Systems All systems: negative Constitutional: fatigue, weakness Cardiovascular: chest pain Gastrointestinal: nausea, vomiting Exam - Vital Signs Vital signs: Vital Signs Temp Pulse Resp BP Pulse Ox 98.6 F 92 H 16 126/74 100 11/17/19 10:45 11/17/19 10:45 11/17/19 10:45 11/17/19 10:45 11/17/19 10:45 - General Appearance General appearance: well-developed, well-nourished, appears stated age EENT: ATNC Neck: Present: neck supple Respiratory: Clear to Ascultation, Normal Exam Heart: regular Gastrointestinal: Present: normal Integumentary: no rash Neurologic: no focal deficit, alert and oriented x3 Musculoskeletal: Present: deferred Psychiatric: mood/affect appropriate, cooperative Results - Lab Results 11/17/19 11:28 11/18/19 04:04 Most recent lab results Calcium 9.6 mg/dL (8.4-10.2) 11/18/19 04:04 Assessment and Plan - Patient Problems (1) Chest pain Current Visit: Yes Status: Acute Plan to address problem: Concern for NSTEMI in setting of elevated cardiac enzymes. S/P stress test this am with cardiology. Further recommendations per cardiology team. (2) End stage renal disease on dialysis Current Visit: Yes Status: Chronic Plan to address problem: Will maintain on an inpatient MWF HD schedule. No acute HD needs today. (3) Diabetes Current Visit: Yes Status: Chronic Qualifiers: Diabetes mellitus type: type 2 Plan to address problem: DM management per primary attending. (4) HTN (hypertension) Current Visit: Yes Status: Chronic Plan to address problem: Monitor blood pressures under current regimen. (5) Hyperkalemia Current Visit: Yes Status: Acute Plan to address problem: Would treat medically.
[2019-11-18] MEDS ORDERED: SODIUM POLYSTYRENE 15 GM/60 ML ORAL LIQD PO ONE (13:42)
[2019-11-18 16:23] VITALS: BP 132/71
--- NOTE | 2019-11-18 16:53 | Discharge Summary ---
Providers - Providers Date of Admission: 11/17/19 13:56 Date of discharge: 11/18/19 Attending physician: GARY ADKINS 11/17/19 13:18 Consult to Cardiology [CONS] Urgent Consulting Provider: PETER TAYLOR Reason For Exam: ACS Pos trop 11/18/19 13:09 Consult to Physician [CONS] Routine Comment: Consulting Provider: FLO RICKS Physician Instructions: Reason For Exam: ESRD, followed by . Primary care physician: SORT SUPERVISOR Hospitalization Condition: Stable Pertinent studies: Thallium test done on 11/18/2019. No new ischemia. Large fixed apical defect. Medium sized fixed inferolateral defect. Mild global left ventricular systolic dysfunction with severe apical hypokinesis and moderate septal and inferolateral inferolateral hypokinesis. Ejection fraction was 48%. This findings suggest prior infarction in the left anterior descending and left circumflex coronary artery territories. No evidence of significant stress-induced ischemia. Hospital course 1.Chest pain rule out NH No acute infarction #2. Hypertension continue antihypertensives #3 end-stage renal disease Due for hemodialysis Wednesday. Today is 11/18/2019. #4 hyperkalemia Mild 5.4. Patient given calcium gluconate. 2 g IV. #5 acute gastritis Patient started on Protonix and sucralfate.--Prescriptions for Protonix and sucralfate given. #6 CHF Continue Lasix. #7 type 2 diabetes Continue oral hypoglycemics. Patient to follow-up with nephrology and primary care physician in 1 week. Disposition: TO HOME OR SELFCARE Core Measure Documentation - Palliative Care Palliative Care/ Comfort Measures: Not Applicable - Core Measures Any of the following diagnoses?: none Exam - Constitutional Vitals: Temp Pulse Resp BP Pulse Ox 98.3 F 95 H 18 132/71 98 11/18/19 15:58 11/18/19 15:58 11/18/19 15:58 11/18/19 15:58 11/18/19 15:58 General appearance: Present: no acute distress, well-nourished - EENT Eyes: Present: PERRL ENT: hearing intact, clear oral mucosa - Neck Neck: Present: supple, normal ROM - Respiratory Respiratory effort: normal Respiratory: bilateral: CTA - Cardiovascular Heart rate: 78 Rhythm: regular Heart Sounds: Present: S1 & S2. Absent: rub, click - Extremities Extremities: no ischemia, pulses intact, pulses symmetrical, No edema Peripheral Pulses: within normal limits - Abdominal General gastrointestinal: Present: soft, non-tender, non-distended, normal bowel sounds Female genitourinary: Present: normal - Integumentary Integumentary: Present: clear, warm, dry - Musculoskeletal Musculoskeletal: gait normal, strength equal bilaterally - Psychiatric Psychiatric: appropriate mood/affect, intact judgment & insight - Neurologic Neurologic: CNII-XII intact, moves all extremities Plan Activity: no restrictions Diet: renal Follow up with: PRIMARY CARE, [Primary Care Provider] - 7 Days KENNY BRAXTON MD [Staff Physician] - 7 Days YVONNE GUTIÉRREZ DO [Staff Physician] - 7 Days Prescriptions: Sucralfate [Carafate] 1 gm PO ACHS 30 Days #120 tablet Pantoprazole [Protonix] 40 mg PO QDAY 30 Days #30 tablet
[2019-11-18] MEDS ORDERED: CALCIUM GLUCONATE 2,000 MG in SODIUM CHLORIDE 0.9% 100 ML IV ONE (17:00)
[2019-11-18] MEDS ORDERED: SUCRALFATE 1 GM TAB PO ONE (18:00)
== END 2019-11-18 18:28 | disposition home or self-care (01) ==
LOC: ED 10:30 → 4A 13:56 → INTOOBSV 13:56 → 4A 15:36
PROVIDERS: ADMIT Internal Medicine; ATTEND Internal Medicine
DX: I21.A1 Myocardial infarction type 2 (principal); I13.2 Hypertensive heart and chronic kidney disease with heart failure and with stage 5 chronic kidney disease, or end stage renal disease; E11.22 Type 2 diabetes mellitus with diabetic chronic kidney disease; I50.9 Heart failure, unspecified; N18.6 End stage renal disease; I25.10 Atherosclerotic heart disease of native coronary artery without angina pectoris; E78.5 Hyperlipidemia, unspecified; E55.9 Vitamin D deficiency, unspecified; E87.5 Hyperkalemia; K29.00 Acute gastritis without bleeding; E66.01 Morbid (severe) obesity due to excess calories; Z86.73 Personal history of transient ischemic attack (TIA), and cerebral infarction without residual deficits; Z99.2 Dependence on renal dialysis; Z95.5 Presence of coronary angioplasty implant and graft; Z90.49 Acquired absence of other specified parts of digestive tract; Z79.82 Long term (current) use of aspirin; Z79.84 Long term (current) use of oral hypoglycemic drugs; Z79.899 Other long term (current) drug therapy; Z88.2 Allergy status to sulfonamides; Z91.048 Other nonmedicinal substance allergy status
CPT/HCPCS: 36415; 71045; 78452; 80048; 80061; 80076; 82550; 82553; 82962; 83036; 83880; 84484; 85025; 85610; 85730; 93005; 93010; 93017; 96372; 96374; 96375; 96376; 99285; A9270; A9502; G0378; J0610; J1170; J2270; J2405; J2765; J2785

== ENCOUNTER 2021-10-07 12:56 | Inpatient (IN) | payer OTHER ==
[2021-10-07] MEDS ORDERED: SODIUM CHLORIDE 0.9% 1000 ML 1,000 ML IV ONE (13:05)
--- NOTE | 2021-10-07 13:10 | Emergency Department Report ---
ED Shortness of Breath HPI - General Chief Complaint: Dyspnea/Respdistress Stated Complaint: HARSHA Time Seen by Provider: 10/07/21 13:02 Source: EMS Mode of arrival: Stretcher Limitations: No Limitations - History of Present Illness Initial Comments: Patient presents with shortness of breath. She states that she has been having trouble breathing for the last several days that worsened today. She is hypoxic. She is on a nonrebreather. Patient states that she does not have any lung history other than pneumonia. She is currently on antibiotics for p neumonia. She has not had coronavirus that she has been told. Patient denies swelling in the feet or ankles. She has no chest pain. She states she just cannot catch her breath. History is limited due to the patient's severe respiratory distress. - Related Data Home Medications Medication Instructions Recorded Confirmed Last Taken calcitrioL [Rocaltrol] 2 tab PO DAILY 04/05/18 07/09/21 07/05/21 glipiZIDE [Glucotrol] 10 mg PO BID 07/08/21 07/08/21 07/05/21 Clopidogrel [Plavix] 75 mg PO QDAY 07/09/21 07/09/21 1 Week Ago ~07/02/21 Furosemide [Lasix TAB] 40 mg PO BID 07/09/21 07/09/21 07/05/21 Insulin NPH Hum/Reg Insulin Hm 15 unit SQ AC 07/09/21 07/09/21 07/05/21 [Novolin 70-30 Flexpen] Pantoprazole [Protonix] 40 mg PO BID 07/09/21 07/09/21 07/05/21 Previous Rx's Medication Instructions Recorded Last Taken Type Aspirin EC [Ecotrin] 325 mg PO QDAY #30 tablet 06/01/14 07/05/21 Rx Simvastatin (Nf) [Zocor TAB] 20 mg PO QHS #30 tablet 07/18/16 07/05/21 Rx Sucralfate [Carafate] 1 gm PO ACHS 30 Days #120 tablet 11/18/19 07/05/21 Rx Allergies Allergy/AdvReac Type Severity Reaction Status Date / Time Iodinated Contrast Media Allergy RENAL Verified 10/07/21 13:56 FAILURE Sulfa (Sulfonamide Allergy Swelling Verified 10/07/21 13:56 Antibiotics) ED Review of Systems ROS: Stated complaint: HARSHA Other details as noted in HPI Comment: Unobtainable due to pts medical conditions (Severe respiratory distress) ED Past Medical Hx - Past Medical History Hx Hypertension: Yes Hx Heart Attack/AMI: Yes (MIx2 stents) Hx Congestive Heart Failure: Yes Hx Diabetes: Yes Hx Deep Vein Thrombosis: No Hx Pulmonary Embolism: No Hx Liver Disease: No Hx Renal Disease: No Hx Sickle Cell Disease: No Hx Arthritis: No Hx Seizures: No Hx Kidney Stones: No Hx Asthma: No Hx COPD: No Hx Tuberculosis: No Hx Dementia: No Hx HIV: No Additional medical history: Fibromyalgia, gastric ulcer - Surgical History Hx Coronary Stent: Yes (twice) Hx Open Heart Surgery: No Hx Pacemaker: No Hx Internal Defibrillator: No Hx Cholecystectomy: Yes Hx Appendectomy: No Hx Breast Surgery: No Additional Surgical History: boils/cysts removed - Family History Family history: hypertension - Social History Smoking Status: Never Smoker - Medications Home Medications: Home Medications Medication Instructions Recorded Confirmed Last Taken Type Aspirin EC [Ecotrin] 325 mg PO QDAY #30 tablet 06/01/14 07/08/21 07/05/21 Rx Simvastatin (Nf) [Zocor TAB] 20 mg PO QHS #30 tablet 07/18/16 07/08/21 07/05/21 Rx calcitrioL [Rocaltrol] 2 tab PO DAILY 04/05/18 07/09/21 07/05/21 History Sucralfate [Carafate] 1 gm PO ACHS 30 Days #120 tablet 11/18/19 07/08/21 07/05/21 Rx glipiZIDE [Glucotrol] 10 mg PO BID 07/08/21 07/08/21 07/05/21 History Clopidogrel [Plavix] 75 mg PO QDAY 07/09/21 07/09/21 1 Week Ago History ~07/02/21 Furosemide [Lasix TAB] 40 mg PO BID 07/09/21 07/09/21 07/05/21 History Insulin NPH Hum/Reg Insulin Hm 15 unit SQ AC 07/09/21 07/09/21 07/05/21 History [Novolin 70-30 Flexpen] Pantoprazole [Protonix] 40 mg PO BID 07/09/21 07/09/21 07/05/21 History ED Physical Exam - General Limitations: Physical Limitation (Severe respiratory distress), Other (Patient is hypoxic with 88% sats on nonrebreather) General appearance: alert, in distress (Severe), obese - Head Head exam: Present: atraumatic, normocephalic - Eye Eye exam: Present: normal appearance, PERRL, EOMI. Absent: scleral icterus - ENT ENT exam: Present: normal orophraynx, normal external ear exam - Neck Neck exam: Present: normal inspection. Absent: meningismus - Respiratory Respiratory exam: Present: respiratory distress (Severe), rales (Bilateral), accessory muscle use, prolonged expiratory, other (1 word dyspnea with 88% sats on nonrebreather) - Cardiovascular Cardiovascular Exam: Present: normal rhythm, tachycardia - GI/Abdominal GI/Abdominal exam: Present: soft. Absent: tenderness - Extremities Exam Extremities exam: Present: normal capillary refill. Absent: pedal edema, calf tenderness - Back Exam Back exam: Absent: CVA tenderness (R), CVA tenderness (L) - Neurological Exam Neurological exam: Present: alert, oriented X3, CN II-XII intact. Absent: motor sensory deficit - Psychiatric Psychiatric exam: Present: anxious - Skin Skin exam: Present: warm, dry ED Course Vital Signs 10/07/21 10/07/21 10/07/21 12:59 13:06 13:30 Temperature 98.8 F Pulse Rate 122 H 127 H Respiratory 16 36 H Rate Blood Pressure Blood Pressure 159/97 161/71 [Right] O2 Sat by Pulse 99 88 97 Oximetry 10/07/21 10/07/21 10/07/21 13:35 14:00 14:30 Temperature Pulse Rate 107 H 103 H 107 H Respiratory 28 H 24 22 Rate Blood Pressure 104/59 Blood Pressure 139/67 133/69 [Right] O2 Sat by Pulse 100 99 100 Oximetry 10/07/21 15:00 Temperature Pulse Rate 106 H Respiratory Rate Blood Pressure Blood Pressure 142/87 [Right] O2 Sat by Pulse 99 Oximetry - Reevaluation(s) Reevaluation #1: 10/07/21 13:09 Patient was placed on BiPAP. She was hypoxic with severe respiratory distress. She is not wheezing so bronchodilators were not ordered. She does not have dependent edema and is being treated for pneumonia. This could certainly be coronavirus. Portable chest x-ray and labs have been ordered. Old records reviewed. Reevaluation #2: 10/07/21 15:36 Patient is improving. Blood gas was noted. She only has a PaO2 of 116 despite FiO2 of 100% on BiPAP. She does have evidence of volume overload. I do believe admission will be indicated. The IV fluids that we administered because of the tachycardia would certainly complicate matters here. She is on peritoneal dialysis but states that she has had a problem with her mixture. She may benefit from ongoing renal intervention. 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 She certainly could have coronavirus. She could have pneumonia although I suspect that her presentation today is more related to volume overload. The troponins can be trended. There was no EKG changes suggestive of STEMI. ED Medical Decision Making - Lab Data Result diagrams: 10/07/21 13:50 10/07/21 13:50 Rhythm strip: Sinus tachycardia without ectopy. Monitor observe 10 seconds. - EKG Data -: EKG Interpreted by Me - EKG Data 10/07/21 15:37 1427-EKG shows sinus tachycardia 107. Intervals are normal including a QRS of 100 and a QT corrected of 480. There is no ST elevation to suggest STEMI. There is no ST depression suggestive of ischemia. Patient has T wave flattening in the precordial leads with poor R wave progression. - Radiology Data Radiology results: report reviewed - Medical Decision Making Patient presented with shortness of breath. She has evidence of volume overload clinically. She reported a history of pneumonia. She does not appear to be toxic. She does not appear to have the need for intubation. I believe that we will be able to treat her with BiPAP and turn her around. She certainly looks more comfortable at this time. We will continue to trend her troponins. Nephrology may be consulted due to her chronic kidney disease. Critical Care Time: Yes (55 minutes exclusive of all procedures) Critical care attestation.: If time is entered above; I have spent that time in minutes in the direct care of this critically ill patient, excluding procedure time. ED Disposition Clinical Impression: Pulmonary edema, Elevated troponin, ESRD on dialysis Acute respiratory failure Qualifiers: Respiratory failure complication: hypoxia Qualified Code(s): J96.01 - Acute respiratory failure with hypoxia Disposition: 09 ADMITTED INPATIENT Is pt being admited?: Yes Condition: Critical Instructions: Pulmonary Edema (ED)
[2021-10-07] MEDS ORDERED: ONDANSETRON 4 MG/2 ML INJ IV ONE (13:20)
[2021-10-07 13:44] LABS: ABG Base Excess -9.6 mmol/L (-2.0-3.0); ABG HCO3 16.4 mmol/L (20.0-26.0); ABG Methemoglobin 0.6 % (0.0-1.5); ABG Oxygen Saturation 97.9 % (95.0-99.0); ABG PCO2 36.1 mm Hg; ABG PH 7.275 pH Units (7.350-7.450); ABG PO2 116.3 mm Hg (80.0-90.0)
[2021-10-07 14:35] LABS: Basophils # (Auto) 0.1 K/mm3 (0.0-0.1); Basophils % (Auto) 0.5 % (0.0-1.8); Eosinophils # (Auto) 0.1 K/mm3 (0.0-0.4); Eosinophils % (Auto) 0.9 % (0.0-4.3); Hematocrit 37.7 % (30.3-42.9); Hemoglobin 11.7 gm/dl (10.1-14.3); Lymphocytes # (Auto) 0.8 K/mm3 (1.2-5.4); Lymphocytes % (Auto) 6.3 % (13.4-35.0); Mean Corpuscular HGB Conc 31 % (30-34); Mean Corpuscular Volume 89 fl (79-97); Monocytes # (Auto) 0.6 K/mm3 (0.0-0.8); Monocytes % (Auto) 4.7 % (0.0-7.3); Platelet Count 231 K/mm3 (140-440); Red Blood Count 4.24 M/mm3 (3.65-5.03); Red Cell Distribution Width 16.2 % (13.2-15.2)
--- NOTE | 2021-10-07 14:48 | XRay Report ---
XR chest 1V ap INDICATION / CLINICAL INFORMATION: hypoxia. COMPARISON: 07/05/2021 FINDINGS: SUPPORT DEVICES: None. HEART /PULMONARY VASCULATURE: The heart is enlarged. Pulmonary vasculature appears congested. LUNGS / PLEURA: Improved but persistent diffuse hazy pulmonary opacities with slight increase in righ t basilar airspace consolidation and small right pleural effusion. No pneumothorax. IMPRESSION: Small right pleural effusion with slight increase in right basilar airspace disease, suspicious for p neumonia. Signer Name: Kojo Kitchen MD Signed: 10/07/2021 2:44 PM Workstation Name: [employer]
[2021-10-07 15:06] LABS: Calcium 8.7 mg/dL (8.4-10.2)
[2021-10-07 15:07] LABS: Albumin 3.3 g/dL (3.9-5)
--- NOTE | 2021-10-07 15:33 | History and Physical Report ---
History of Present Illness Chief complaint: It is hard to breathe History of present illness: 55 YO Female with Obesity Hypoventilation Syndrome, Systolic/Diastolic CHF(EF 40%),Pulmonary HTN, GERD, DM, [place] complicated by Cardiac Arrest, CAD S/P Stent Placement on DAPT, HLD, ESRD on PD presents to ED for evaluation. Patient reports "it is hard to breathe". Patient states that she had experienced shortness of breath over the past 1 week with persistent and worsening symptoms over the same timeframe. Patient was diagnosed with pneumonia and treated with oral antibiotic therapy without improvement in symptoms. Patient subsequently failed outpatient management. Patient acknowledges decline exertion, dyspnea at rest, decreased exercise tolerance, orthopnea, paroxysmal nocturnal dyspnea. EMS was notified and upon arrival the patient was found to be in distress and subsequently transported to [facility] for further care and evaluation of the aforementioned symptoms. The patient was seen and evaluated in the emergency department. All lab and imaging studies reviewed. Patient found to have limited responsiveness due to use of accessory muscles of breathing. Patient was tripoding, unable to speak in complete sentences. Patient also found to have a pulse oximetry of 86% on room air which is consistent with acute hypoxemic respiratory failure. Patient treated with supplemental oxygen without improvement in symptoms. Patient subsequently placed on noninvasive positive pressure ventilation with mild improvement in symptoms. Patient also to have pneumonia, as well as clinical symptoms consistent with CHF decompensation, systemic inflammatory response syndrome, acidosis, and pulmonary hypertension. Patient found to have end-stage renal disease in need of urgent dialysis. Patient admitted to [facility] and initiated on pneumonia protocol as well as CHF protocol. Cardiology team consulted in ED. Patient uses head gestures and denies fever, chills, chest pain, palpitation, skin rash, recent contact, known exposure to COVID-19. Prior admission on 07/06/2021 reviewed. All medication listed at time of admission has been reconciled. Advanced care planning conducted in ED. VQ scan ordered and is pending at time of admission. Nephrology team consulted in ED for resumption of dialysis. Past History Past Medical History: acute [place], CAD, diabetes, ESRD, GERD, hypertension Past Surgical History: cholecystectomy, Other (Cardiac stent placement, peritoneal dialysis catheter) Social history: single Family history: CAD, diabetes, hypertension Medications and Allergies Allergies Allergy/AdvReac Type Severity Reaction Status Date / Time Iodinated Contrast Media Allergy RENAL Verified 10/07/21 13:56 FAILURE Sulfa (Sulfonamide Allergy Swelling Verified 10/07/21 13:56 Antibiotics) Home Medications Medication Instructions Recorded Confirmed Last Taken Type Aspirin EC [Ecotrin] 325 mg PO QDAY #30 tablet 06/01/14 07/08/21 07/05/21 Rx Simvastatin (Nf) [Zocor TAB] 20 mg PO QHS #30 tablet 07/18/16 07/08/21 07/05/21 Rx calcitrioL [Rocaltrol] 2 tab PO DAILY 04/05/18 07/09/21 07/05/21 History Sucralfate [Carafate] 1 gm PO ACHS 30 Days #120 tablet 11/18/19 07/08/21 07/05/21 Rx glipiZIDE [Glucotrol] 10 mg PO BID 07/08/21 07/08/21 07/05/21 History Clopidogrel [Plavix] 75 mg PO QDAY 07/09/21 07/09/21 1 Week Ago History ~07/02/21 Furosemide [Lasix TAB] 40 mg PO BID 07/09/21 07/09/21 07/05/21 History Insulin NPH Hum/Reg Insulin Hm 15 unit SQ AC 07/09/21 07/09/21 07/05/21 History [Novolin 70-30 Flexpen] Pantoprazole [Protonix] 40 mg PO BID 07/09/21 07/09/21 07/05/21 History Review of Systems Constitutional: no weight loss, no weight gain, no fever Ears, nose, mouth and throat: no ear pain, no decreased hearing, no nasal discharge, no sinus pressure Breasts: no change in shape, no swelling, no mass Cardiovascular: orthopnea, shortness of breath, dyspnea on exertion, paroxysmal nocturnal dyspnea, leg edema, no chest pain, no palpitations Respiratory: shortness of breath, dyspnea on exertion Gastrointestinal: no nausea, no vomiting, no diarrhea, no constipation Genitourinary Female: no pelvic pain, no flank pain, no dysuria, no urinary frequency, no urgency Rectal: no pain, no incontinence, no bleeding Musculoskeletal: no neck stiffness, no neck pain, no shooting arm pain, no low back pain, no shooting leg pain Integumentary: no rash, no pruritis, no redness, no sores, no jaundice Neurological: no transient paralysis, no weakness, no numbness, no tingling, no syncope Psychiatric: no anxiety, no sleep disturbances, no insomnia, no change in appetite, no change in libido Endocrine: no cold intolerance, no heat intolerance, no excessive thirst, no polydipsia, no nocturia Hematologic/Lymphatic: no easy bruising, no easy bleeding, no lymphedema Allergic/Immunologic: no urticaria, no allergic rhinitis, no persistent infections, no angioedema Exam - Constitutional Vitals: Temp Pulse Resp BP Pulse Ox 98.8 F 106 H 22 142/87 99 10/07/21 12:59 10/07/21 15:00 10/07/21 14:30 10/07/21 15:00 10/07/21 15:00 General appearance: Present: mild distress - EENT Eyes: Present: PERRL ENT: hearing intact, clear oral mucosa - Neck Neck: Present: supple, normal ROM - Respiratory Respiratory effort: labored, accessory muscle use, stridor Respiratory: bilateral: diminished, rhonchi - Cardiovascular Heart Sounds: Present: S1 & S2. Absent: rub, click - Extremities Extremities: pulses symmetrical Extremity abnormal: edema Peripheral Pulses: within normal limits - Abdominal General gastrointestinal: Present: soft, non-tender, non-distended, normal bowel sounds Female genitourinary: Present: normal - Integumentary Integumentary: Present: clear, dry - Musculoskeletal Musculoskeletal: generalized weakness - Psychiatric Psychiatric: cooperative - Neurologic Neurologic: CNII-XII intact HEART Score - HEART Score Troponin: Troponin T 0.547 ng/mL (0.00-0.029) H* 10/07/21 13:50 Results - Labs CBC & Chem 7: 10/07/21 13:50 10/07/21 13:50 Labs: Abnormal lab results 10/07/21 10/07/21 10/07/21 Range/Units 13:25 13:50 13:50 WBC 13.5 H (4.5-11.0) K/mm3 RDW 16.2 H (13.2-15.2) % Lymph % (Auto) 6.3 L (13.4-35.0) % Lymph # (Auto) 0.8 L (1.2-5.4) K/mm3 Seg Neutrophils % 87.6 H (40.0-70.0) % Seg Neutrophils # 11.8 H (1.8-7.7) K/mm3 D-Dimer (0-234) ng/mlDDU ABG pH 7.275 L (7.350-7.450) pH Units ABG pO2 116.3 H (80.0-90.0) mm Hg ABG HCO3 16.4 L (20.0-26.0) mmol/L ABG Base Excess -9.6 L (-2.0-3.0) mmol/L Chloride 92.5 L (98-107) mmol/L Carbon Dioxide 13 L (22-30) mmol/L BUN 69 H (7-17) mg/dL Creatinine 16.8 H (0.6-1.2) mg/dL Glucose 134 H (65-100) mg/dL Troponin T 0.547 H* (0.00-0.029) ng/mL NT-Pro-B Natriuret Pep (0-900) pg/mL Albumin 3.3 L (3.9-5) g/dL 10/07/21 10/07/21 Range/Units 13:50 14:11 WBC (4.5-11.0) K/mm3 RDW (13.2-15.2) % Lymph % (Auto) (13.4-35.0) % Lymph # (Auto) (1.2-5.4) K/mm3 Seg Neutrophils % (40.0-70.0) % Seg Neutrophils # (1.8-7.7) K/mm3 D-Dimer 1622.39 H (0-234) ng/mlDDU ABG pH (7.350-7.450) pH Units ABG pO2 (80.0-90.0) mm Hg ABG HCO3 (20.0-26.0) mmol/L ABG Base Excess (-2.0-3.0) mmol/L Chloride (98-107) mmol/L Carbon Dioxide (22-30) mmol/L BUN (7-17) mg/dL Creatinine (0.6-1.2) mg/dL Glucose (65-100) mg/dL Troponin T (0.00-0.029) ng/mL NT-Pro-B Natriuret Pep 77444 H (0-900) pg/mL Albumin (3.9-5) g/dL Assessment and Plan - Patient Problems (1) Acute systolic CHF (congestive heart failure) Current Visit: No Status: Acute Plan to address problem: CHF protocol: Strict I's/O, monitor urine output every shift, daily weight, afterload reduction, blood pressure control, monitor fluid balance, afterload reduction. Cardiology team consulted. (2) Acute respiratory failure Current Visit: Yes Status: Acute Qualifiers: Respiratory failure complication: hypoxia Qualified Code(s): J96.01 - Acute respiratory failure with hypoxia Plan to address problem: Noninvasive positive pressure ventilation in place at time of my evaluation, VQ scan ordered and is pending at time of admission, supplemental oxygen, pulse oximetry, nebulizer therapy. Chest x-ray. (3) Pneumonia Current Visit: Yes Status: Acute Plan to address problem: Pneumonia protocol: Chest x-ray, CBC, CMP, IV antibiotic therapy, supplemental oxygen, pulse oximetry. (4) End stage renal disease Current Visit: Yes Status: Acute Plan to address problem: Nephrology team consulted in ED, urgent dialysis as per renal team, strict I/O, avoid nephrotoxic agents, supportive care. (5) Acidosis Current Visit: Yes Status: Acute Plan to address problem: Supportive care, treat pneumonia. (6) SIRS (systemic inflammatory response syndrome) Current Visit: Yes Status: Acute Plan to address problem: IV antibiotic therapy, CBC, repeat CBC in a.m. (7) Pulmonary edema Current Visit: Yes Status: Acute Qualifiers: Chronicity: acute Qualified Code(s): J81.0 - Acute pulmonary edema Plan to address problem: Strict I/O, monitor urine output every shift, urgent dialysis, nephrology team consulted in ED, chest x-ray. (8) DVT prophylaxis Current Visit: Yes Status: Acute Plan to address problem: SCD bilateral lower extremities while in bed (9) Advance care planning Current Visit: Yes Status: Acute Plan to address problem: Disease education conducted, care plan discussed, diagnoses discussed, prognosis discussed, patient is full code, patient knowledges understanding and agreement with care plan, +30 minutes.
[2021-10-07] MEDS ORDERED: NITROGLYCERIN 0.4 MG TAB SUBL SL PRN (15:35)
[2021-10-07] MEDS ORDERED: ACETAMINOPHEN 325 MG TAB PO PRN (15:35)
[2021-10-07] MEDS ORDERED: ALBUTEROL 2.5 MG/3 ML NEBU IH PRN (15:35)
[2021-10-07] MEDS ORDERED: oxyCODONE /ACETAMINOPHEN 5-325MG TAB PO PRN (15:35)
[2021-10-07 15:39] LABS: C-Reactive Protein 0.9 mg/dL (0.00-1.30)
[2021-10-07 15:41] LABS: Chol/HDL Ratio 3.25 %
[2021-10-07] MEDS: SUCRALFATE 1 GM TAB PO SCH ×2 (16:47→23:16)
[2021-10-07] MEDS: cefTRIAXone/NS 2 GM/100 ML 2 GM/100 ML BAG IV SCH (16:47)
[2021-10-07] MEDS: FUROSEMIDE 20 MG/2 ML INJ IV SCH (21:35)
[2021-10-07] MEDS ORDERED: NON-FORMULARY EACH (Simvastatin 20 MG Tablet) PO SCH (22:00)
[2021-10-07] MEDS: METOPROLOL TARTRATE 25 MG TAB PO SCH (23:16)
[2021-10-07] MEDS: PRAVASTATIN 40 MG TAB PO SCH (23:26)
[2021-10-07] MEDS: PANTOPRAZOLE 40 MG TAB PO SCH (23:26)
[2021-10-07] MEDS: LISINOPRIL 5 MG TAB PO SCH (23:27)
[2021-10-08] MEDS: HYDROmorphone 1 MG/1 ML INJ IV PRN ×2 (03:57→17:31)
[2021-10-08 04:51] LABS: Basophils # (Auto) 0.1 K/mm3 (0.0-0.1); Basophils % (Auto) 0.8 % (0.0-1.8); Eosinophils # (Auto) 0.2 K/mm3 (0.0-0.4); Eosinophils % (Auto) 2.2 % (0.0-4.3); Hemoglobin 10.1 gm/dl (10.1-14.3); Lymphocytes # (Auto) 1.2 K/mm3 (1.2-5.4); Lymphocytes % (Auto) 12.3 % (13.4-35.0); Mean Corpuscular HGB Conc 32 % (30-34); Mean Corpuscular Volume 87 fl (79-97); Monocytes # (Auto) 0.8 K/mm3 (0.0-0.8); Monocytes % (Auto) 7.5 % (0.0-7.3); Platelet Count 195 K/mm3 (140-440); Red Blood Count 3.68 M/mm3 (3.65-5.03); Red Cell Distribution Width 15.6 % (13.2-15.2)
[2021-10-08 05:15] LABS: Calcium 8.3 mg/dL (8.4-10.2)
[2021-10-08] MEDS: FUROSEMIDE 20 MG/2 ML INJ IV SCH ×2 (06:35→17:31)
[2021-10-08] MEDS ORDERED: DEXTROSE 10% *Hypoglycemia IV PRN (07:59)
--- NOTE | 2021-10-08 09:39 | Nuclear Medicine Report ---
NUCLEAR MEDICINE PERFUSION SCAN INDICATION: dypsnea, shortness of breath, diagnosis of pneumonia CORRELATION: AP chest performed 10/07/2021 at 1400 hours RADIOPHARMACEUTICAL: Perfusion: 5.5 mCi Tc-99m MAA given IV FINDINGS: The perfusion images demonstrate decreased radiotracer accumulation throughout the right lower lobe w hich corresponds to airspace disease and effusion on the right side. No convincing segmental perfusio n defect extending to the pleural surfaces detected. There is homogeneous distribution of the radiotr acer in the right upper lung and left lung. Cardiac silhouette appears normal. IMPRESSION: Low to intermediate probability perfusion scan for pulmonary embolism. There is decreased radiotracer accumulation in the right lower lung which appears to correlate with the infiltrate and effusion see n on AP chest. If further evaluation is needed, CTA could be obtained. Signer Name: Reji Nicolas Jr, MD Signed: 10/08/2021 9:35 AM Workstation Name: [id number]
[2021-10-08] MEDS ORDERED: CLOPIDOGREL 75 MG TAB PO SCH (10:00)
[2021-10-08] MEDS ORDERED: CALCITRIOL 0.5 MCG CAP PO SCH (10:00)
[2021-10-08] MEDS ORDERED: ASPIRIN EC 325 MG TAB PO SCH (10:00)
[2021-10-08] MEDS: SUCRALFATE 1 GM TAB PO SCH ×4 (10:04→21:15)
[2021-10-08] MEDS: METOPROLOL TARTRATE 25 MG TAB PO SCH ×2 (10:07→21:13)
[2021-10-08] MEDS: CALCITRIOL 0.5 MCG CAP PO SCH (10:08)
[2021-10-08] MEDS: PANTOPRAZOLE 40 MG TAB PO SCH ×2 (10:08→21:14)
[2021-10-08] MEDS: AZITHROMYCIN 250 MG TAB PO SCH (10:11)
[2021-10-08] MEDS: LISINOPRIL 5 MG TAB PO SCH ×2 (10:11→21:13)
--- NOTE | 2021-10-08 11:27 | Consultation ---
History of Present Illness - Reason for Consult Consult date: 10/08/21 end stage renal disease Requesting physician: ELISABETH VORA - History of Present Illness This is a 55 yo F with history of ESRD in the setting of DM and HTN, currently doing CCPD with prescription of 5 exchanges at night utilizing 2.5% Quan solution with the dual volume of 2.3 L and dwell time of each exchange of 1 hour and 45 minutes, who presented to ER with complaints of shortness of breath for 1 week progressively worsening, along with decreased exercise tolerance, orthopnea, paroxysmal nocturnal dyspnea. patient was recently diagnosed with pneumonia and was treated with oral antibiotics, however without improvement. patient was found to be hypoxic, with O2sat at 86% on RA. Patient treated with supplemental oxygen without improvement in symptoms. CXR showed small R pleural effusion with slight increase in R basilar airspace disease suspicious for pneumonia. VQ scan showed low-intermediate probability for PE. Lab showed leukocytosis with WBC > 13, d-dimer > 1600, BUN/cr 69/16.8, serum bicarb 13. Patient was admitted for IV ABX treatment, renal consult is requested for manage ment of ESRD/PD Past History Past Medical History: acute [place], CAD, diabetes, ESRD, GERD, hypertension Past Surgical History: cholecystectomy, Other (Cardiac stent placement, peritoneal dialysis catheter) Social history: single Family history: CAD, diabetes, hypertension Medications and Allergies Allergies Allergy/AdvReac Type Severity Reaction Status Date / Time Iodinated Contrast Media Allergy RENAL Verified 10/07/21 13:56 FAILURE Sulfa (Sulfonamide Allergy Swelling Verified 10/07/21 13:56 Antibiotics) Home Medications Medication Instructions Recorded Confirmed Last Taken Type Aspirin EC [Ecotrin] 325 mg PO QDAY #30 tablet 06/01/14 07/08/21 07/05/21 Rx Simvastatin (Nf) [Zocor TAB] 20 mg PO QHS #30 tablet 07/18/16 07/08/21 07/05/21 Rx calcitrioL [Rocaltrol] 2 tab PO DAILY 04/05/18 07/09/21 07/05/21 History Sucralfate [Carafate] 1 gm PO ACHS 30 Days #120 tablet 11/18/19 07/08/21 07/05/21 Rx glipiZIDE [Glucotrol] 10 mg PO BID 07/08/21 07/08/21 07/05/21 History Clopidogrel [Plavix] 75 mg PO QDAY 07/09/21 07/09/21 1 Week Ago History ~07/02/21 Furosemide [Lasix TAB] 40 mg PO BID 07/09/21 07/09/21 07/05/21 History Insulin NPH Hum/Reg Insulin Hm 15 unit SQ AC 07/09/21 07/09/21 07/05/21 History [Novolin 70-30 Flexpen] Pantoprazole [Protonix] 40 mg PO BID 07/09/21 07/09/21 07/05/21 History Active Meds: Active Medications Acetaminophen (Acetaminophen 325 Mg Tab) 650 mg PO Q6H PRN PRN Reason: Pain MILD(1-3)/Fever >100.5/[facility]OY Last Admin: 10/07/21 21:42 Dose: 650 mg Albuterol (Albuterol 2.5 Mg/3 Ml Nebu) 2.5 mg IH Q3HRT PRN PRN Reason: Shortness Of Breath Aspirin (Aspirin Ec 325 Mg Tab) 325 mg PO QDAY [facility] Last Admin: 10/08/21 10:05 Dose: 325 mg Azithromycin (Azithromycin 250 Mg Tab) 500 mg PO QDAY [facility]; Protocol Last Admin: 10/08/21 10:11 Dose: 500 mg Calcitriol (Calcitriol 0.5 Mcg Cap) 1 mcg PO DAILY [facility] Last Admin: 10/08/21 10:08 Dose: 1 mcg Clopidogrel Bisulfate (Clopidogrel 75 Mg Tab) 75 mg PO QDAY [facility] Last Admin: 10/08/21 10:08 Dose: 75 mg Dextrose (Dextrose 10% *Hypoglycemia) 0 ml IV PRN PRN PRN Reason: Hypoglycemia Furosemide (Furosemide 20 Mg/2 Ml Inj) 20 mg IV BID@0600,1800 [facility] Last Admin: 10/08/21 06:35 Dose: 20 mg Hydromorphone HCl (Hydromorphone 1 Mg/1 Ml Inj) 0.5 mg IV Q12H PRN PRN Reason: Pain , Severe (7-10) Last Admin: 10/08/21 03:57 Dose: 0.5 mg Ceftriaxone Sodium (Rocephin/Ns 2 Gm/100 Ml) 2 gm in 100 mls @ 200 mls/hr IV Q24H [facility]; Protocol Last Admin: 10/07/21 16:47 Dose: 200 mls/hr Lisinopril (Lisinopril 5 Mg Tab) 2.5 mg PO BID [facility] Last Admin: 10/08/21 10:11 Dose: Not Given Metoprolol Tartrate (Metoprolol Tartrate 25 Mg Tab) 12.5 mg PO BID [facility] Last Admin: 10/08/21 10:07 Dose: 12.5 mg Nitroglycerin (Nitroglycerin 0.4 Mg Tab Subl) 0.4 mg SL .Q5MIN PRN PRN Reason: Chest Pain Oxycodone/Acetaminophen (Oxycodone /Acetaminophen 5-325mg Tab) 1 tab PO Q6H PRN PRN Reason: Pain, Moderate (4-6) Pantoprazole Sodium (Pantoprazole 40 Mg Tab) 40 mg PO BID [facility] Last Admin: 10/08/21 10:08 Dose: 40 mg Peritoneal Dialysis Solution (Dialysate Lo Gaudencio 1.5% Soln 2000 Ml) 2,000 ml IP Q6HR [facility] Pravastatin Sodium (Pravastatin 40 Mg Tab) 40 mg PO QHS [facility] Last Admin: 10/07/21 23:26 Dose: 40 mg Sodium Chloride (Sodium Chloride 0.9% 10 Ml Flush Syringe) 10 ml IV BID [facility] Last Admin: 10/08/21 10:09 Dose: 10 ml Sodium Chloride (Sodium Chloride 0.9% 10 Ml Flush Syringe) 10 ml IV PRN PRN PRN Reason: LINE FLUSH Sucralfate (Sucralfate 1 Gm Tab) 1 gm PO ACHS [facility] Last Admin: 10/08/21 10:04 Dose: 1 gm Review of Systems Constitutional: fatigue, weakness, malaise Cardiovascular: orthopnea, shortness of breath, dyspnea on exertion, paroxysmal nocturnal dyspnea Exam - Vital Signs Vital signs: Vital Signs Temp Pulse Resp BP Pulse Ox 98.8 F 122 H 16 159/97 99 10/07/21 12:59 10/07/21 12:59 10/07/21 12:59 10/07/21 12:59 10/07/21 12:59 - General Appearance General appearance: well-developed, well-nourished, appears stated age EENT: ATNC, PERRL, mucous membranes moist Neck: Present: neck supple Respiratory: Clear to Ascultation Heart: regular, S1S2 Gastrointestinal: Present: normoactive bowel sounds Integumentary: no rash Neurologic: no focal deficit, alert and oriented x3, strength 5/5, CN 3-12 intact Psychiatric: mood/affect appropriate, cooperative Results - Lab Results 10/08/21 04:31 10/08/21 04:31 Most recent lab results ABG pH 7.275 pH Units (7.350-7.450) L 10/07/21 13:25 ABG pCO2 36.1 mm Hg 10/07/21 13:25 ABG pO2 116.3 mm Hg (80.0-90.0) H 10/07/21 13:25 ABG HCO3 16.4 mmol/L (20.0-26.0) L 10/07/21 13:25 ABG O2 Saturation 97.9 % (95.0-99.0) 10/07/21 13:25 Calcium 8.3 mg/dL (8.4-10.2) L 10/08/21 04:31 Assessment and Plan - Patient Problems (1) Pneumonia Current Visit: Yes Status: Acute Plan to address problem: Cont IV ABXs with ceftriaxone, no renal adjustment necessary (2) Acute respiratory failure Current Visit: Yes Status: Acute Qualifiers: Respiratory failure complication: hypoxia Qualified Code(s): J96.01 - Acute respiratory failure with hypoxia Plan to address problem: O2 sat improved on supplemental 2L O2 via NC (3) End stage renal disease Current Visit: Yes Status: Acute Plan to address problem: Cont manual peritoneal dialysis using 2L dwell volume, 1.5% dineal solution q6hrs, given borderline low BP on admission in the setting of Pneumonia. If Ultrafiltration/solute clearance is not adequate will increase to 2.5% dineal. 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
--- NOTE | 2021-10-08 12:13 | Progress Note ---
Assessment and Plan Assessment and plan: 55 YO Female with Obesity Hypoventilation Syndrome, Systolic/Diastolic CHF(EF 40%),Pulmonary HTN, GERD, DM, PA complicated by Cardiac Arrest, CAD S/P Stent Placement on DAPT, HLD, ESRD on PD presents to ED for evaluation. Patient reports "it is hard to breathe". Patient states that she had experienced shortness of breath over the past 1 week with persistent and worsening symptoms over the same timeframe. Patient was diagnosed with pneumonia and treated with oral antibiotic therapy without improvement in symptoms. Patient subsequently failed outpatient management. Patient acknowledges decline exertion, dyspnea at rest, decreased exercise tolerance, orthopnea, paroxysmal nocturnal dyspnea. EM S was notified and upon arrival the patient was found to be in distress and subsequently transported to [facility] for further care and evaluation of the aforementioned symptoms. The patient was seen and evaluated in the emergency department. All lab and imaging studies reviewed. Patient found to have l imited responsiveness due to use of accessory muscles of breathing. Patient was tripoding, unable to speak in complete sentences. Patient also found to have a pulse oximetry of 86% on room air which is consistent with acute hypoxemic respiratory failure. Patient treated with supplemental oxygen without improvement in symptoms. Patient subsequently placed on noninvasive positive pressure ventilation with mild improvement in symptoms. Patient also to have pneumonia, as well as clinical symptoms consistent with CHF decompensation, systemic inflammatory response syndrome, acidosis, and pulmonary hypertension. Patient found to have end-stage renal disease in need of urgent dialysis. Patient admitted to [facility] and initiated on pneumonia protocol as well as CHF protocol. Cardiology team consulted in ED. Patient uses head gestures and denies fever, chills, chest pain, palpitation, skin rash, recent contact, known exposure to COVID-19. Prior admission on 07/06/2021 reviewed. All medication listed at time of admission has been reconciled. Advanced care planning conducted in ED. VQ scan ordered and is pending at time of admission. Nephrology team consulted in ED for resumption of dialysis. 3/2: Patient seen and examined this morning shows improvement but not quite at baseline. Awaiting HD for today. States that she was not feeling well and as a result could not do her peritoneal dialysis. Will obtain a pulmonary consultation in addition for further management due to not her shortness of breath. Covid testing was done will await results. For now we will transfer patient to telemetry when she is clinically improved (1) Acute systolic CHF (congestive heart failure) Current Visit: No Status: Acute Plan to address problem: CHF protocol: Strict I's/O, monitor urine output every shift, daily weight, afterload reduction, blood pressure control, monitor fluid balance, afterload reduction. Cardiology team consulted. (2) Acute respiratory failure Current Visit: Yes Status: Acute Qualifiers: Respiratory failure complication: hypoxia Qualified Code(s): J96.01 - Acute respiratory failure with hypoxia Plan to address problem: Noninvasive positive pressure ventilation in place at time of my evaluation, VQ scan ordered and is pending at time of admission, supplemental oxygen, pulse oximetry, nebulizer therapy. Chest x-ray. (3) Pneumonia Current Visit: Yes Status: Acute Plan to address problem: Pneumonia protocol: Chest x-ray, CBC, CMP, IV antibiotic therapy, supplemental oxygen, pulse oximetry. (4) End stage renal disease Current Visit: Yes Status: Acute Plan to address problem: Nephrology team consulted in ED, urgent dialysis as per renal team, strict I/O, avoid nephrotoxic agents, supportive care. (5) Acidosis Current Visit: Yes Status: Acute Plan to address problem: Supportive care, treat pneumonia. (6) SIRS (systemic inflammatory response syndrome) Current Visit: Yes Status: Acute Plan to address problem: IV antibiotic therapy, CBC, repeat CBC in a.m. (7) Pulmonary edema Current Visit: Yes Status: Acute Qualifiers: Chronicity: acute Qualified Code(s): J81.0 - Acute pulmonary edema Plan to address problem: Strict I/O, monitor urine output every shift, urgent dialysis, nephrology team consulted in ED, chest x-ray. (8) DVT prophylaxis Current Visit: Yes Status: Acute Plan to address problem: SCD bilateral lower extremities while in bed (9) Advance care planning Current Visit: Yes Status: Acute Plan to address problem: Disease education conducted, care plan discussed, diagnoses discussed, prognosis discussed, patient is full code, patient knowledges understanding and agreement with care plan, +30 minutes. History Interval history: Patient seen and examined this morning reports improvement in symptoms. Hospitalist Physical - Physical exam Narrative exam: VITAL SIGNS: Reviewed. GENERAL: The patient appears normally developed, Vital signs as documented. HEAD: No signs of head trauma. EYES: Pupils are equal. Extraocular motions intact. EARS: Hearing grossly intact. MOUTH: Oropharynx is normal. NECK: No adenopathy, no JVD. CHEST: Chest with diminshed breath sounds bilaterally. No wheezes, rales, or rhonchi. CARDIAC: Regular rate and rhythm. S1 and S2, without murmurs, gallops, or rubs. VASCULAR: No Edema. Peripheral pulses normal and equal in all extremities. ABDOMEN: Soft, non tender and non distended. No rebound or guarding, and no masses palpated. Bowel Sounds normal. MUSCULOSKELETAL: Good range of motion of all major joints. Extremities without clubbing, cyanosis or edema. NEUROLOGIC EXAM: Alert and oriented x 3 No focal sensory or strength deficits. Speech normal. Follows commands. PSYCHIATRIC: Mood normal. SKIN: detail exam as documented in skin assessment - Constitutional Vitals: Temp Pulse Resp BP Pulse Ox 97.6 F 85 24 103/67 100 10/08/21 08:00 10/08/21 11:16 10/08/21 11:16 10/08/21 11:16 10/08/21 11:16 General appearance: Present: mild distress HEART Score - HEART Score Troponin: Troponin T 0.547 ng/mL (0.00-0.029) H* 10/07/21 13:50 Results - Labs CBC & Chem 7: 10/08/21 04:31 10/08/21 04:31 Labs: Laboratory Last Values WBC 10.1 K/mm3 (4.5-11.0) 10/08/21 04:31 RBC 3.68 M/mm3 (3.65-5.03) 10/08/21 04:31 Hgb 10.1 gm/dl (10.1-14.3) 10/08/21 04:31 Hct 32.0 % (30.3-42.9) 10/08/21 04:31 MCV 87 fl (79-97) 10/08/21 04:31 MCH 28 pg (28-32) 10/08/21 04:31 MCHC 32 % (30-34) 10/08/21 04:31 RDW 15.6 % (13.2-15.2) H 10/08/21 04:31 Plt Count 195 K/mm3 (140-440) 10/08/21 04:31 Lymph % (Auto) 12.3 % (13.4-35.0) L 10/08/21 04:31 [place] % (Auto) 7.5 % (0.0-7.3) H 10/08/21 04:31 Eos % (Auto) 2.2 % (0.0-4.3) 10/08/21 04:31 Baso % (Auto) 0.8 % (0.0-1.8) 10/08/21 04:31 Lymph # (Auto) 1.2 K/mm3 (1.2-5.4) 10/08/21 04:31 [place] # (Auto) 0.8 K/mm3 (0.0-0.8) 10/08/21 04:31 Eos # (Auto) 0.2 K/mm3 (0.0-0.4) 10/08/21 04:31 Baso # (Auto) 0.1 K/mm3 (0.0-0.1) 10/08/21 04:31 Seg Neutrophils % 77.2 % (40.0-70.0) H 10/08/21 04:31 Seg Neutrophils # 7.8 K/mm3 (1.8-7.7) H 10/08/21 04:31 D-Dimer 1622.39 ng/mlDDU (0-234) H 10/07/21 13:50 ABG pH 7.275 pH Units (7.350-7.450) L 10/07/21 13:25 ABG pCO2 36.1 mm Hg 10/07/21 13:25 ABG pO2 116.3 mm Hg (80.0-90.0) H 10/07/21 13:25 ABG HCO3 16.4 mmol/L (20.0-26.0) L 10/07/21 13:25 ABG O2 Saturation 97.9 % (95.0-99.0) 10/07/21 13:25 ABG O2 Content 16.9 (0.0-44) 10/07/21 13:25 ABG Base Excess -9.6 mmol/L (-2.0-3.0) L 10/07/21 13:25 ABG Hemoglobin 12.4 gm/dl (12.0-16.0) 10/07/21 13:25 ABG Carboxyhemoglobin 1.5 % (0.0-5.0) 10/07/21 13:25 ABG Methemoglobin 0.6 % (0.0-1.5) 10/07/21 13:25 Oxyhemoglobin 95.9 % (95.0-99.0) 10/07/21 13:25 FiO2 100 % 10/07/21 13:25 Sodium 140 mmol/L (137-145) 10/08/21 04:31 Potassium 4.7 mmol/L (3.6-5.0) 10/08/21 04:31 Chloride 95.9 mmol/L (98-107) L 10/08/21 04:31 Carbon Dioxide 17 mmol/L (22-30) L 10/08/21 04:31 Anion Gap 32 mmol/L 10/08/21 04:31 BUN 75 mg/dL (7-17) H 10/08/21 04:31 Creatinine 16.1 mg/dL (0.6-1.2) H 10/08/21 04:31 Estimated GFR 3 ml/min 10/08/21 04:31 BUN/Creatinine Ratio 5 % 10/08/21 04:31 Glucose 97 mg/dL (65-100) 10/08/21 04:31 POC Glucose 120 mg/dL (70-105) H 10/08/21 11:27 Calcium 8.3 mg/dL (8.4-10.2) L 10/08/21 04:31 Ferritin 675.6 ng/mL (10.0-200.0) H 10/07/21 13:50 Total Bilirubin 0.50 mg/dL (0.1-1.2) 10/07/21 13:50 AST 16 units/L (5-40) 10/07/21 13:50 ALT 14 units/L (7-56) 10/07/21 13:50 Alkaline Phosphatase 128 units/L (35-129) 10/07/21 13:50 Lactate Dehydrogenase 323 units/L (91-180) H 10/07/21 13:50 Troponin T 0.547 ng/mL (0.00-0.029) H* 10/07/21 13:50 C-Reactive Protein 0.90 mg/dL (0.00-1.30) 10/07/21 13:50 NT-Pro-B Natriuret Pep 27053 pg/mL (0-900) H 10/07/21 14:11 Total Protein 7.3 g/dL (6.3-8.2) 10/07/21 13:50 Albumin 3.3 g/dL (3.9-5) L 10/07/21 13:50 Albumin/Globulin Ratio 0.8 % 10/07/21 13:50 Triglycerides 110 mg/dL (2-149) 10/07/21 13:50 Cholesterol 169 mg/dL (50-199) 10/07/21 13:50 LDL Cholesterol Direct 103 mg/dL (50-130) 10/07/21 13:50 HDL Cholesterol 52 mg/dL (40-59) 10/07/21 13:50 Cholesterol/HDL Ratio 3.25 % 10/07/21 13:50 Procalcitonin 0.32 ng/mL (<0.15) 10/07/21 13:50 Active Medications - Current Medications Current Medications: Generic Name Dose Route Start Last Admin Trade Name Freq PRN Reason Stop Dose Admin Acetaminophen 650 mg 10/07/21 15:35 10/07/21 21:42 Acetaminophen 325 Mg Tab PO 650 mg Q6H PRN Administration Pain MILD(1-3)/Fever >100.5/MCCOY Albuterol 2.5 mg 10/07/21 15:35 Albuterol 2.5 Mg/3 Ml Nebu IH Q3HRT PRN Shortness Of Breath Aspirin 325 mg 10/08/21 10:00 10/08/21 10:05 Aspirin Ec 325 Mg Tab PO 325 mg QDAY SELENA Administration Azithromycin 500 mg 10/08/21 10:00 10/08/21 10:11 Azithromycin 250 Mg Tab PO 500 mg QDAY SELENA Administration Protocol Calcitriol 1 mcg 10/08/21 10:00 10/08/21 10:08 Calcitriol 0.5 Mcg Cap PO 1 mcg DAILY SELENA Administration Clopidogrel Bisulfate 75 mg 10/08/21 10:00 10/08/21 10:08 Clopidogrel 75 Mg Tab PO 75 mg QDAY SELENA Administration Dextrose 0 ml 10/08/21 07:59 Dextrose 10% *Hypoglycemia IV PRN PRN Hypoglycemia Furosemide 20 mg 10/07/21 18:00 10/08/21 06:35 Furosemide 20 Mg/2 Ml Inj IV 20 mg BID@0600,1800 SELENA Administration Hydromorphone HCl 0.5 mg 10/07/21 15:35 10/08/21 03:57 Hydromorphone 1 Mg/1 Ml Inj IV 0.5 mg Q12H PRN Administration Pain , Severe (7-10) Ceftriaxone Sodium 2 gm in 100 mls @ 200 mls/hr 10/07/21 16:00 10/07/21 16:47 Rocephin/Ns 2 Gm/100 Ml IV 200 mls/hr Q24H SELENA Administration Protocol Lisinopril 2.5 mg 10/07/21 22:00 10/08/21 10:11 Lisinopril 5 Mg Tab PO Not Given BID SELENA Metoprolol Tartrate 12.5 mg 10/07/21 22:00 10/08/21 10:07 Metoprolol Tartrate 25 Mg Tab PO 12.5 mg BID SELENA Administration Nitroglycerin 0.4 mg 10/07/21 15:35 Nitroglycerin 0.4 Mg Tab Subl SL .Q5MIN PRN Chest Pain Oxycodone/Acetaminophen 1 tab 10/07/21 15:35 Oxycodone /Acetaminophen 5-325mg Tab PO Q6H PRN Pain, Moderate (4-6) Pantoprazole Sodium 40 mg 10/07/21 22:00 10/08/21 10:08 Pantoprazole 40 Mg Tab PO 40 mg BID SEELNA Administration Peritoneal Dialysis Solution 2,000 ml 10/08/21 12:00 Dialysate Lo Gaudencio 1.5% Soln 2000 Ml IP Q6HR SELENA Pravastatin Sodium 40 mg 10/07/21 22:00 10/07/21 23:26 Pravastatin 40 Mg Tab PO 40 mg QHS SELENA Administration Sodium Bicarbonate 650 mg 10/08/21 22:00 Sodium Bicarbonate 650 Mg Tab PO BID SELENA Sodium Chloride 10 ml 10/07/21 22:00 10/08/21 10:09 Sodium Chloride 0.9% 10 Ml Flush Syringe IV 10 ml BID SELENA Administration Sodium Chloride 10 ml 10/07/21 15:35 Sodium Chloride 0.9% 10 Ml Flush Syringe IV PRN PRN LINE FLUSH Sucralfate 1 gm 10/07/21 16:30 10/08/21 10:04 Sucralfate 1 Gm Tab PO 1 gm ACHS SELENA Administration
[2021-10-08] MEDS: DIALYSATE LO CAL 1.5% SOLN 2000 ML IP SCH ×2 (13:48→20:14)
--- NOTE | 2021-10-08 14:52 | Consultation ---
History of Present Illness Consult date: 10/08/21 Requesting physician: ELIZABETH IVORY Reason for consult: other (Hypoxemic Respiratory Failure) History of present illness: PULMONARY/CCM CONSULT NOTE (Full dictation # [id number]) Please see dictated notes for full details Past History Past Medical History: acute [place], CAD, diabetes, ESRD, GERD, hypertension Past Surgical History: cholecystectomy, Other (Cardiac stent placement, peritoneal dialysis catheter) Social history: single Family history: CAD, diabetes, hypertension Medications and Allergies Allergies Allergy/AdvReac Type Severity Reaction Status Date / Time Iodinated Contrast Media Allergy RENAL Verified 10/07/21 13:56 FAILURE Sulfa (Sulfonamide Allergy Swelling Verified 10/07/21 13:56 Antibiotics) Home Medications Medication Instructions Recorded Confirmed Last Taken Type Aspirin EC [Ecotrin] 325 mg PO QDAY #30 tablet 06/01/14 10/09/21 07/05/21 Rx Simvastatin (Nf) [Zocor TAB] 20 mg PO QHS #30 tablet 07/18/16 10/09/21 07/05/21 Rx calcitrioL [Rocaltrol] 2 tab PO DAILY 04/05/18 10/09/21 07/05/21 History Sucralfate [Carafate] 1 gm PO ACHS 30 Days #120 tablet 11/18/19 10/09/21 07/05/21 Rx glipiZIDE [Glucotrol] 10 mg PO BID 07/08/21 10/09/21 07/05/21 History Clopidogrel [Plavix] 75 mg PO QDAY 07/09/21 10/09/21 1 Week Ago History ~07/02/21 Furosemide [Lasix TAB] 40 mg PO BID 07/09/21 10/09/21 07/05/21 History Insulin NPH Hum/Reg Insulin Hm 15 unit SQ AC 07/09/21 10/09/21 07/05/21 History [Novolin 70-30 Flexpen] Pantoprazole [Protonix] 40 mg PO BID 07/09/21 10/09/21 07/05/21 History Gabapentin 100 mg PO BID 10/09/21 10/09/21 3 Days Ago History ~10/06/21 Active Meds: Active Medications Acetaminophen (Acetaminophen 325 Mg Tab) 650 mg PO Q6H PRN PRN Reason: Pain MILD(1-3)/Fever >100.5/MCCOY Last Admin: 10/07/21 21:42 Dose: 650 mg Albuterol (Albuterol 2.5 Mg/3 Ml Nebu) 2.5 mg IH Q3HRT PRN PRN Reason: Shortness Of Breath Aspirin (Aspirin 81 Mg Tab Chew) 81 mg PO QDAY [facility] Azithromycin (Azithromycin 250 Mg Tab) 500 mg PO QDAY [facility]; Protocol Last Admin: 10/08/21 10:11 Dose: 500 mg Calcitriol (Calcitriol 0.5 Mcg Cap) 1 mcg PO DAILY [facility] Last Admin: 10/08/21 10:08 Dose: 1 mcg Dextrose (Dextrose 10% *Hypoglycemia) 0 ml IV PRN PRN PRN Reason: Hypoglycemia Furosemide (Furosemide 20 Mg/2 Ml Inj) 20 mg IV BID@0600,1800 [facility] Last Admin: 10/08/21 06:35 Dose: 20 mg Hydromorphone HCl (Hydromorphone 1 Mg/1 Ml Inj) 0.5 mg IV Q12H PRN PRN Reason: Pain , Severe (7-10) Last Admin: 10/08/21 03:57 Dose: 0.5 mg Ceftriaxone Sodium (Rocephin/Ns 2 Gm/100 Ml) 2 gm in 100 mls @ 200 mls/hr IV Q24H [facility]; Protocol Last Admin: 10/07/21 16:47 Dose: 200 mls/hr Lisinopril (Lisinopril 5 Mg Tab) 2.5 mg PO BID [facility] Last Admin: 10/08/21 10:11 Dose: Not Given Metoprolol Tartrate (Metoprolol Tartrate 25 Mg Tab) 12.5 mg PO BID [facility] Last Admin: 10/08/21 10:07 Dose: 12.5 mg Nitroglycerin (Nitroglycerin 0.4 Mg Tab Subl) 0.4 mg SL .Q5MIN PRN PRN Reason: Chest Pain Oxycodone/Acetaminophen (Oxycodone /Acetaminophen 5-325mg Tab) 1 tab PO Q6H PRN PRN Reason: Pain, Moderate (4-6) Pantoprazole Sodium (Pantoprazole 40 Mg Tab) 40 mg PO BID [facility] Last Admin: 10/08/21 10:08 Dose: 40 mg Peritoneal Dialysis Solution (Dialysate Lo Gaudencio 1.5% Soln 2000 Ml) 2,000 ml IP Q6HR [facility] Last Admin: 10/08/21 13:48 Dose: 2,000 ml Pravastatin Sodium (Pravastatin 40 Mg Tab) 40 mg PO QHS [facility] Last Admin: 10/07/21 23:26 Dose: 40 mg Sodium Bicarbonate (Sodium Bicarbonate 650 Mg Tab) 650 mg PO BID [facility] Sodium Chloride (Sodium Chloride 0.9% 10 Ml Flush Syringe) 10 ml IV BID [facility] Last Admin: 10/08/21 10:09 Dose: 10 ml Sodium Chloride (Sodium Chloride 0.9% 10 Ml Flush Syringe) 10 ml IV PRN PRN PRN Reason: LINE FLUSH Sucralfate (Sucralfate 1 Gm Tab) 1 gm PO ACHS [facility] Last Admin: 10/08/21 13:48 Dose: 1 gm Ticagrelor (Ticagrelor 90 Mg Tab) 90 mg PO BID [facility] Physical Examination Vital signs: Vital Signs Temp Pulse Resp BP Pulse Ox 98.8 F 122 H 16 159/97 99 10/07/21 12:59 10/07/21 12:59 10/07/21 12:59 10/07/21 12:59 10/07/21 12:59 Results - Laboratory Findings CBC and BMP: 10/08/21 04:31 10/08/21 04:31 ABG ABG pH 7.275 pH Units (7.350-7.450) L 10/07/21 13:25 ABG pCO2 36.1 mm Hg 10/07/21 13:25 ABG pO2 116.3 mm Hg (80.0-90.0) H 10/07/21 13:25 ABG O2 Saturation 97.9 % (95.0-99.0) 10/07/21 13:25 PT/INR, D-dimer D-Dimer 1622.39 ng/mlDDU (0-234) H 10/07/21 13:50 Abnormal lab findings: Abnormal Labs 10/07/21 10/07/21 10/07/21 13:25 13:50 13:50 WBC 13.5 H RDW 16.2 H Lymph % (Auto) 6.3 L [place] % (Auto) Lymph # (Auto) 0.8 L Seg Neutrophils % 87.6 H Seg Neutrophils # 11.8 H D-Dimer ABG pH 7.275 L ABG pO2 116.3 H ABG HCO3 16.4 L ABG Base Excess -9.6 L Chloride 92.5 L Carbon Dioxide 13 L BUN 69 H Creatinine 16.8 H Glucose 134 H POC Glucose Calcium Ferritin Lactate Dehydrogenase Troponin T 0.547 H* NT-Pro-B Natriuret Pep Albumin 3.3 L 10/07/21 10/07/21 10/07/21 13:50 13:50 13:50 WBC RDW Lymph % (Auto) [place] % (Auto) Lymph # (Auto) Seg Neutrophils % Seg Neutrophils # D-Dimer 1622.39 H ABG pH ABG pO2 ABG HCO3 ABG Base Excess Chloride Carbon Dioxide BUN Creatinine Glucose POC Glucose Calcium Ferritin 675.6 H Lactate Dehydrogenase 323 H Troponin T NT-Pro-B Natriuret Pep Albumin 10/07/21 10/08/21 10/08/21 14:11 04:31 04:31 WBC RDW 15.6 H Lymph % (Auto) 12.3 L [place] % (Auto) 7.5 H Lymph # (Auto) Seg Neutrophils % 77.2 H Seg Neutrophils # 7.8 H D-Dimer ABG pH ABG pO2 ABG HCO3 ABG Base Excess Chloride 95.9 L Carbon Dioxide 17 L BUN 75 H Creatinine 16.1 H Glucose POC Glucose Calcium 8.3 L Ferritin Lactate Dehydrogenase Troponin T NT-Pro-B Natriuret Pep 84867 H Albumin 10/08/21 10/08/21 07:48 11:27 WBC RDW Lymph % (Auto) [place] % (Auto) Lymph # (Auto) Seg Neutrophils % Seg Neutrophils # D-Dimer ABG pH ABG pO2 ABG HCO3 ABG Base Excess Chloride Carbon Dioxide BUN Creatinine Glucose POC Glucose 57 L 120 H Calcium Ferritin Lactate Dehydrogenase Troponin T NT-Pro-B Natriuret Pep Albumin
[2021-10-08] MEDS: cefTRIAXone/NS 2 GM/100 ML 2 GM/100 ML BAG IV SCH (16:11)
--- NOTE | 2021-10-08 16:36 | Consultation ---
History of Present Illness Consult date: 10/08/21 Requesting physician: ELISABETH VORA Consult reason: congestive heart failure History of present illness: Patient is a 55-year-old female with a past medical history of coronary artery disease s/p PCI, ischemic cardiomyopathy, end-stage renal disease on peritoneal dialysis, diabetes, hypertension, mitral valve regurgitation, pulmonary hypertension who reported to the ED yesterday for complaint of difficulty in breathing. Patient reports that she within the last several days she was diagnosed with pneumonia and given antibiotics however she has had worsening symptoms and that as of yesterday she became severely short of breath and was unable to breathe. She further reports a nonproductive cough. She states she did not feel as if she is a buildup of fluid. Patient denies chest pain, orthopnea, PND, palpitations, diaphoresis. In the ED patient was found to have pulse ox of 86%. CXR in ED suspicious for pneumonia. Past History Past Medical History: acute SC, CAD, diabetes, ESRD, GERD, hypertension Past Surgical History: cholecystectomy, Other (Cardiac stent placement, peritoneal dialysis catheter) Social history: single Family history: CAD, diabetes, hypertension Medications and Allergies Allergies Allergy/AdvReac Type Severity Reaction Status Date / Time Iodinated Contrast Media Allergy RENAL Verified 10/07/21 13:56 FAILURE Sulfa (Sulfonamide Allergy Swelling Verified 10/07/21 13:56 Antibiotics) Home Medications Medication Instructions Recorded Confirmed Last Taken Type Aspirin EC [Ecotrin] 325 mg PO QDAY #30 tablet 06/01/14 07/08/21 07/05/21 Rx Simvastatin (Nf) [Zocor TAB] 20 mg PO QHS #30 tablet 07/18/16 07/08/21 07/05/21 Rx calcitrioL [Rocaltrol] 2 tab PO DAILY 04/05/18 07/09/21 07/05/21 History Sucralfate [Carafate] 1 gm PO ACHS 30 Days #120 tablet 11/18/19 07/08/21 07/05/21 Rx glipiZIDE [Glucotrol] 10 mg PO BID 07/08/21 07/08/21 07/05/21 History Clopidogrel [Plavix] 75 mg PO QDAY 07/09/21 07/09/21 1 Week Ago History ~07/02/21 Furosemide [Lasix TAB] 40 mg PO BID 07/09/21 07/09/21 07/05/21 History Insulin NPH Hum/Reg Insulin Hm 15 unit SQ AC 07/09/21 07/09/21 07/05/21 History [Novolin 70-30 Flexpen] Pantoprazole [Protonix] 40 mg PO BID 07/09/21 07/09/21 07/05/21 History Active Meds: Active Medications Acetaminophen (Acetaminophen 325 Mg Tab) 650 mg PO Q6H PRN PRN Reason: Pain MILD(1-3)/Fever >100.5/[place] Last Admin: 10/07/21 21:42 Dose: 650 mg Albuterol (Albuterol 2.5 Mg/3 Ml Nebu) 2.5 mg IH Q3HRT PRN PRN Reason: Shortness Of Breath Aspirin (Aspirin 81 Mg Tab Chew) 81 mg PO QDAY [place] Azithromycin (Azithromycin 250 Mg Tab) 500 mg PO QDAY [facility]; Protocol Last Admin: 10/08/21 10:11 Dose: 500 mg Calcitriol (Calcitriol 0.5 Mcg Cap) 1 mcg PO DAILY [facility] Last Admin: 10/08/21 10:08 Dose: 1 mcg Dextrose (Dextrose 10% *Hypoglycemia) 0 ml IV PRN PRN PRN Reason: Hypoglycemia Furosemide (Furosemide 20 Mg/2 Ml Inj) 20 mg IV BID@0600,1800 [facility] Last Admin: 10/08/21 06:35 Dose: 20 mg Hydromorphone HCl (Hydromorphone 1 Mg/1 Ml Inj) 0.5 mg IV Q12H PRN PRN Reason: Pain , Severe (7-10) Last Admin: 10/08/21 03:57 Dose: 0.5 mg Ceftriaxone Sodium (Rocephin/Ns 2 Gm/100 Ml) 2 gm in 100 mls @ 200 mls/hr IV Q24H [facility]; Protocol Last Admin: 10/08/21 16:11 Dose: 200 mls/hr Lisinopril (Lisinopril 5 Mg Tab) 2.5 mg PO BID [facility] Last Admin: 10/08/21 10:11 Dose: Not Given Metoprolol Tartrate (Metoprolol Tartrate 25 Mg Tab) 12.5 mg PO BID [facility] Last Admin: 10/08/21 10:07 Dose: 12.5 mg Nitroglycerin (Nitroglycerin 0.4 Mg Tab Subl) 0.4 mg SL .Q5MIN PRN PRN Reason: Chest Pain Oxycodone/Acetaminophen (Oxycodone /Acetaminophen 5-325mg Tab) 1 tab PO Q6H PRN PRN Reason: Pain, Moderate (4-6) Pantoprazole Sodium (Pantoprazole 40 Mg Tab) 40 mg PO BID [facility] Last Admin: 10/08/21 10:08 Dose: 40 mg Peritoneal Dialysis Solution (Dialysate Lo Gaudencio 1.5% Soln 2000 Ml) 2,000 ml IP Q6HR [facility] Last Admin: 10/08/21 13:48 Dose: 2,000 ml Pravastatin Sodium (Pravastatin 40 Mg Tab) 40 mg PO QHS [facility] Last Admin: 10/07/21 23:26 Dose: 40 mg Sodium Bicarbonate (Sodium Bicarbonate 650 Mg Tab) 650 mg PO BID [facility] Sodium Chloride (Sodium Chloride 0.9% 10 Ml Flush Syringe) 10 ml IV BID [facility] Last Admin: 10/08/21 10:09 Dose: 10 ml Sodium Chloride (Sodium Chloride 0.9% 10 Ml Flush Syringe) 10 ml IV PRN PRN PRN Reason: LINE FLUSH Sucralfate (Sucralfate 1 Gm Tab) 1 gm PO ACHS [facility] Last Admin: 10/08/21 16:10 Dose: 1 gm Ticagrelor (Ticagrelor 90 Mg Tab) 90 mg PO BID [facility] Review of Systems Constitutional: no weight loss, no weight gain, no fever, no chills Ears, nose, mouth and throat: no ear pain, no ear discharge, no tinnitis Cardiovascular: shortness of breath, dyspnea on exertion, no chest pain, no orthopnea, no palpitations, no rapid/irregular heart beat, no edema Respiratory: shortness of breath, dyspnea on exertion Gastrointestinal: no abdominal pain, no nausea, no vomiting Integumentary: no rash, no pruritis, no redness Neurological: no head injury, no transient paralysis, no paralysis Psychiatric: no anxiety, no memory loss Endocrine: no cold intolerance, no heat intolerance Hematologic/Lymphatic: no easy bruising, no easy bleeding Physical Examination Vital Signs Temp Pulse Resp BP Pulse Ox 98.8 F 122 H 16 159/97 99 10/07/21 12:59 10/07/21 12:59 10/07/21 12:59 10/07/21 12:59 10/07/21 12:59 General appearance: no acute distress HEENT: Positive: Normocephaly Neck: Positive: trachea midline Cardiac: Positive: Reg Rate and Rhythm Lungs: Positive: Decreased Breath Sounds Neuro: Positive: Grossly Intact Abdomen: Positive: Soft Skin: Negative: Rash, Suspicious Lesions, Ulceration Extremities: Present: upper extr. pulses. Absent: edema Results 10/08/21 04:31 10/08/21 04:31 Cardiac Enzymes 10/07/21 10/07/21 10/07/21 Range/Units 13:25 13:50 13:50 WBC 13.5 H (4.5-11.0) K/mm3 RBC 4.24 (3.65-5.03) M/mm3 Hgb 11.7 (10.1-14.3) gm/dl Hct 37.7 (30.3-42.9) % MCV 89 (79-97) fl MCH 28 (28-32) pg MCHC 31 (30-34) % RDW 16.2 H (13.2-15.2) % Plt Count 231 (140-440) K/mm3 Lymph % (Auto) 6.3 L (13.4-35.0) % [place] % (Auto) 4.7 (0.0-7.3) % Eos % (Auto) 0.9 (0.0-4.3) % Baso % (Auto) 0.5 (0.0-1.8) % Lymph # (Auto) 0.8 L (1.2-5.4) K/mm3 [place] # (Auto) 0.6 (0.0-0.8) K/mm3 Eos # (Auto) 0.1 (0.0-0.4) K/mm3 Baso # (Auto) 0.1 (0.0-0.1) K/mm3 Seg Neutrophils % 87.6 H (40.0-70.0) % Seg Neutrophils # 11.8 H (1.8-7.7) K/mm3 D-Dimer (0-234) ng/mlDDU ABG pH 7.275 L (7.350-7.450) pH Units ABG pCO2 36.1 mm Hg ABG pO2 116.3 H (80.0-90.0) mm Hg ABG HCO3 16.4 L (20.0-26.0) mmol/L ABG O2 Saturation 97.9 (95.0-99.0) % ABG O2 Content 16.9 (0.0-44) ABG Base Excess -9.6 L (-2.0-3.0) mmol/L ABG Hemoglobin 12.4 (12.0-16.0) gm/dl ABG Carboxyhemoglobin 1.5 (0.0-5.0) % ABG Methemoglobin 0.6 (0.0-1.5) % Oxyhemoglobin 95.9 (95.0-99.0) % FiO2 100 % Sodium 138 (137-145) mmol/L Potassium 4.0 (3.6-5.0) mmol/L Chloride 92.5 L (98-107) mmol/L Carbon Dioxide 13 L (22-30) mmol/L Anion Gap 37 mmol/L BUN 69 H (7-17) mg/dL Creatinine 16.8 H (0.6-1.2) mg/dL Estimated GFR 3 ml/min BUN/Creatinine Ratio 4 % Glucose 134 H (65-100) mg/dL POC Glucose (70-105) mg/dL Calcium 8.7 (8.4-10.2) mg/dL Ferritin (10.0-200.0) ng/mL Total Bilirubin 0.50 (0.1-1.2) mg/dL ALT 14 (7-56) units/L Alkaline Phosphatase 128 (35-129) units/L Troponin T 0.547 H* (0.00-0.029) ng/mL C-Reactive Protein (0.00-1.30) mg/dL NT-Pro-B Natriuret Pep (0-900) pg/mL Total Protein 7.3 (6.3-8.2) g/dL Albumin 3.3 L (3.9-5) g/dL Albumin/Globulin Ratio 0.8 % Triglycerides 110 (2-149) mg/dL Cholesterol 169 (50-199) mg/dL LDL Cholesterol Direct 103 (50-130) mg/dL HDL Cholesterol 52 (40-59) mg/dL Cholesterol/HDL Ratio 3.25 % Procalcitonin (<0.15) ng/mL Coronavirus (PCR) (Negative) 10/07/21 10/07/21 10/07/21 Range/Units 13:50 13:50 13:50 WBC (4.5-11.0) K/mm3 RBC (3.65-5.03) M/mm3 Hgb (10.1-14.3) gm/dl Hct (30.3-42.9) % MCV (79-97) fl MCH (28-32) pg MCHC (30-34) % RDW (13.2-15.2) % Plt Count (140-440) K/mm3 Lymph % (Auto) (13.4-35.0) % [place] % (Auto) (0.0-7.3) % Eos % (Auto) (0.0-4.3) % Baso % (Auto) (0.0-1.8) % Lymph # (Auto) (1.2-5.4) K/mm3 [place] # (Auto) (0.0-0.8) K/mm3 Eos # (Auto) (0.0-0.4) K/mm3 Baso # (Auto) (0.0-0.1) K/mm3 Seg Neutrophils % (40.0-70.0) % Seg Neutrophils # (1.8-7.7) K/mm3 D-Dimer 1622.39 H (0-234) ng/mlDDU ABG pH (7.350-7.450) pH Units ABG pCO2 mm Hg ABG pO2 (80.0-90.0) mm Hg ABG HCO3 (20.0-26.0) mmol/L ABG O2 Saturation (95.0-99.0) % ABG O2 Content (0.0-44) ABG Base Excess (-2.0-3.0) mmol/L ABG Hemoglobin (12.0-16.0) gm/dl ABG Carboxyhemoglobin (0.0-5.0) % ABG Methemoglobin (0.0-1.5) % Oxyhemoglobin (95.0-99.0) % FiO2 % Sodium (137-145) mmol/L Potassium (3.6-5.0) mmol/L Chloride (98-107) mmol/L Carbon Dioxide (22-30) mmol/L Anion Gap mmol/L BUN (7-17) mg/dL Creatinine (0.6-1.2) mg/dL Estimated GFR ml/min BUN/Creatinine Ratio % Glucose (65-100) mg/dL POC Glucose (70-105) mg/dL Calcium (8.4-10.2) mg/dL Ferritin 675.6 H (10.0-200.0) ng/mL Total Bilirubin (0.1-1.2) mg/dL ALT (7-56) units/L Alkaline Phosphatase (35-129) units/L Troponin T (0.00-0.029) ng/mL C-Reactive Protein (0.00-1.30) mg/dL NT-Pro-B Natriuret Pep (0-900) pg/mL Total Protein (6.3-8.2) g/dL Albumin (3.9-5) g/dL Albumin/Globulin Ratio % Triglycerides (2-149) mg/dL Cholesterol (50-199) mg/dL LDL Cholesterol Direct (50-130) mg/dL HDL Cholesterol (40-59) mg/dL Cholesterol/HDL Ratio % Procalcitonin 0.32 (<0.15) ng/mL Coronavirus (PCR) (Negative) 10/07/21 10/07/21 10/08/21 Range/Units 13:50 14:11 01:46 WBC (4.5-11.0) K/mm3 RBC (3.65-5.03) M/mm3 Hgb (10.1-14.3) gm/dl Hct (30.3-42.9) % MCV (79-97) fl MCH (28-32) pg MCHC (30-34) % RDW (13.2-15.2) % Plt Count (140-440) K/mm3 Lymph % (Auto) (13.4-35.0) % [place] % (Auto) (0.0-7.3) % Eos % (Auto) (0.0-4.3) % Baso % (Auto) (0.0-1.8) % Lymph # (Auto) (1.2-5.4) K/mm3 [place] # (Auto) (0.0-0.8) K/mm3 Eos # (Auto) (0.0-0.4) K/mm3 Baso # (Auto) (0.0-0.1) K/mm3 Seg Neutrophils % (40.0-70.0) % Seg Neutrophils # (1.8-7.7) K/mm3 D-Dimer (0-234) ng/mlDDU ABG pH (7.350-7.450) pH Units ABG pCO2 mm Hg ABG pO2 (80.0-90.0) mm Hg ABG HCO3 (20.0-26.0) mmol/L ABG O2 Saturation (95.0-99.0) % ABG O2 Content (0.0-44) ABG Base Excess (-2.0-3.0) mmol/L ABG Hemoglobin (12.0-16.0) gm/dl ABG Carboxyhemoglobin (0.0-5.0) % ABG Methemoglobin (0.0-1.5) % Oxyhemoglobin (95.0-99.0) % FiO2 % Sodium (137-145) mmol/L Potassium (3.6-5.0) mmol/L Chloride (98-107) mmol/L Carbon Dioxide (22-30) mmol/L Anion Gap mmol/L BUN (7-17) mg/dL Creatinine (0.6-1.2) mg/dL Estimated GFR ml/min BUN/Creatinine Ratio % Glucose (65-100) mg/dL POC Glucose 82 (70-105) mg/dL Calcium (8.4-10.2) mg/dL Ferritin (10.0-200.0) ng/mL Total Bilirubin (0.1-1.2) mg/dL ALT (7-56) units/L Alkaline Phosphatase (35-129) units/L Troponin T (0.00-0.029) ng/mL C-Reactive Protein 0.90 (0.00-1.30) mg/dL NT-Pro-B Natriuret Pep 40523 H (0-900) pg/mL Total Protein (6.3-8.2) g/dL Albumin (3.9-5) g/dL Albumin/Globulin Ratio % Triglycerides (2-149) mg/dL Cholesterol (50-199) mg/dL LDL Cholesterol Direct (50-130) mg/dL HDL Cholesterol (40-59) mg/dL Cholesterol/HDL Ratio % Procalcitonin (<0.15) ng/mL Coronavirus (PCR) (Negative) 10/08/21 10/08/21 10/08/21 Range/Units 04:31 04:31 07:48 WBC 10.1 (4.5-11.0) K/mm3 RBC 3.68 (3.65-5.03) M/mm3 Hgb 10.1 (10.1-14.3) gm/dl Hct 32.0 (30.3-42.9) % MCV 87 (79-97) fl MCH 28 (28-32) pg MCHC 32 (30-34) % RDW 15.6 H (13.2-15.2) % Plt Count 195 (140-440) K/mm3 Lymph % (Auto) 12.3 L (13.4-35.0) % [place] % (Auto) 7.5 H (0.0-7.3) % Eos % (Auto) 2.2 (0.0-4.3) % Baso % (Auto) 0.8 (0.0-1.8) % Lymph # (Auto) 1.2 (1.2-5.4) K/mm3 [place] # (Auto) 0.8 (0.0-0.8) K/mm3 Eos # (Auto) 0.2 (0.0-0.4) K/mm3 Baso # (Auto) 0.1 (0.0-0.1) K/mm3 Seg Neutrophils % 77.2 H (40.0-70.0) % Seg Neutrophils # 7.8 H (1.8-7.7) K/mm3 D-Dimer (0-234) ng/mlDDU ABG pH (7.350-7.450) pH Units ABG pCO2 mm Hg ABG pO2 (80.0-90.0) mm Hg ABG HCO3 (20.0-26.0) mmol/L ABG O2 Saturation (95.0-99.0) % ABG O2 Content (0.0-44) ABG Base Excess (-2.0-3.0) mmol/L ABG Hemoglobin (12.0-16.0) gm/dl ABG Carboxyhemoglobin (0.0-5.0) % ABG Methemoglobin (0.0-1.5) % Oxyhemoglobin (95.0-99.0) % FiO2 % Sodium 140 (137-145) mmol/L Potassium 4.7 (3.6-5.0) mmol/L Chloride 95.9 L (98-107) mmol/L Carbon Dioxide 17 L (22-30) mmol/L Anion Gap 32 mmol/L BUN 75 H (7-17) mg/dL Creatinine 16.1 H (0.6-1.2) mg/dL Estimated GFR 3 ml/min BUN/Creatinine Ratio 5 % Glucose 97 (65-100) mg/dL POC Glucose 57 L (70-105) mg/dL Calcium 8.3 L (8.4-10.2) mg/dL Ferritin (10.0-200.0) ng/mL Total Bilirubin (0.1-1.2) mg/dL ALT (7-56) units/L Alkaline Phosphatase (35-129) units/L Troponin T (0.00-0.029) ng/mL C-Reactive Protein (0.00-1.30) mg/dL NT-Pro-B Natriuret Pep (0-900) pg/mL Total Protein (6.3-8.2) g/dL Albumin (3.9-5) g/dL Albumin/Globulin Ratio % Triglycerides (2-149) mg/dL Cholesterol (50-199) mg/dL LDL Cholesterol Direct (50-130) mg/dL HDL Cholesterol (40-59) mg/dL Cholesterol/HDL Ratio % Procalcitonin (<0.15) ng/mL Coronavirus (PCR) (Negative) 10/08/21 10/08/21 10/08/21 Range/Units 08:25 08:37 11:27 WBC (4.5-11.0) K/mm3 RBC (3.65-5.03) M/mm3 Hgb (10.1-14.3) gm/dl Hct (30.3-42.9) % MCV (79-97) fl MCH (28-32) pg MCHC (30-34) % RDW (13.2-15.2) % Plt Count (140-440) K/mm3 Lymph % (Auto) (13.4-35.0) % [place] % (Auto) (0.0-7.3) % Eos % (Auto) (0.0-4.3) % Baso % (Auto) (0.0-1.8) % Lymph # (Auto) (1.2-5.4) K/mm3 [place] # (Auto) (0.0-0.8) K/mm3 Eos # (Auto) (0.0-0.4) K/mm3 Baso # (Auto) (0.0-0.1) K/mm3 Seg Neutrophils % (40.0-70.0) % Seg Neutrophils # (1.8-7.7) K/mm3 D-Dimer (0-234) ng/mlDDU ABG pH (7.350-7.450) pH Units ABG pCO2 mm Hg ABG pO2 (80.0-90.0) mm Hg ABG HCO3 (20.0-26.0) mmol/L ABG O2 Saturation (95.0-99.0) % ABG O2 Content (0.0-44) ABG Base Excess (-2.0-3.0) mmol/L ABG Hemoglobin (12.0-16.0) gm/dl ABG Carboxyhemoglobin (0.0-5.0) % ABG Methemoglobin (0.0-1.5) % Oxyhemoglobin (95.0-99.0) % FiO2 % Sodium (137-145) mmol/L Potassium (3.6-5.0) mmol/L Chloride (98-107) mmol/L Carbon Dioxide (22-30) mmol/L Anion Gap mmol/L BUN (7-17) mg/dL Creatinine (0.6-1.2) mg/dL Estimated GFR ml/min BUN/Creatinine Ratio % Glucose (65-100) mg/dL POC Glucose 99 120 H (70-105) mg/dL Calcium (8.4-10.2) mg/dL Ferritin (10.0-200.0) ng/mL Total Bilirubin (0.1-1.2) mg/dL ALT (7-56) units/L Alkaline Phosphatase (35-129) units/L Troponin T (0.00-0.029) ng/mL C-Reactive Protein (0.00-1.30) mg/dL NT-Pro-B Natriuret Pep (0-900) pg/mL Total Protein (6.3-8.2) g/dL Albumin (3.9-5) g/dL Albumin/Globulin Ratio % Triglycerides (2-149) mg/dL Cholesterol (50-199) mg/dL LDL Cholesterol Direct (50-130) mg/dL HDL Cholesterol (40-59) mg/dL Cholesterol/HDL Ratio % Procalcitonin (<0.15) ng/mL Coronavirus (PCR) Negative (Negative) CBC 10/08/21 Range/Units 04:31 WBC 10.1 (4.5-11.0) K/mm3 RBC 3.68 (3.65-5.03) M/mm3 Hgb 10.1 (10.1-14.3) gm/dl Hct 32.0 (30.3-42.9) % Plt Count 195 (140-440) K/mm3 Lymph # (Auto) 1.2 (1.2-5.4) K/mm3 [place] # (Auto) 0.8 (0.0-0.8) K/mm3 Eos # (Auto) 0.2 (0.0-0.4) K/mm3 Baso # (Auto) 0.1 (0.0-0.1) K/mm3 Comprehensive Metabolic Panel 10/08/21 Range/Units 04:31 Sodium 140 (137-145) mmol/L Potassium 4.7 (3.6-5.0) mmol/L Chloride 95.9 L (98-107) mmol/L Carbon Dioxide 17 L (22-30) mmol/L BUN 75 H (7-17) mg/dL Creatinine 16.1 H (0.6-1.2) mg/dL Glucose 97 (65-100) mg/dL Calcium 8.3 L (8.4-10.2) mg/dL - Imaging and Cardiology Echo: report reviewed Cardiac cath: report reviewed EKG interpretations - Telemetry EKG Rhythm: Sinus Rhythm - EKG Sinus rhythms and dysrhythmias: sinus rhythm Assessment and Plan Patient is a 55-year-old female with a past medical history of coronary artery disease s/p PCI, ischemic cardiomyopathy, end-stage renal disease on peritoneal dialysis, diabetes, hypertension, mitral valve regurgitation, pulmonary hypertension who reported to the ED yesterday for complaint of difficulty in breathing Acute respiratory failure-pulmonology follow Pneumonia Coronary artery disease s/p PCI Ischemic cardiomyopathy End-stage renal disease on peritoneal dialysis-nephrology following Pulmonary hypertension Diabetes Echo 07/06/2021-EF 40 to 45%. Regional wall abnormalities noted. The apex as well as mid and apical anterior septal and inferior septal genao are severely hypokinetic severe diastolic dysfunction is present restrictive filling pattern. Right ventricle is moderately dilated. Right ventricle is moderately hyp okinetic. Left atrium moderately dilated. Right atrium mildly dilated. Moderate pulmonary hypertension Cardiac cath 06/25/2021- PCI of the mid RCA with drug-eluting resolute 3.0 x 22 mm. left main short large vessel patent LAD is a large-caliber vessel proximal mild luminal irregularities mid stent patent distal apex small vessel less than 2 m diffuse 80-90% lesion. Small diagonal 1 diagonal 2 patent circumflex medium caliber vessel patent calcified proximal patent with mild luminal irregularities goes into a small OM1 this diffusely disease proximal and mid 8090% after OM the three affiliated circumflex 100% with left to left collaterals feeding 2 small-caliber circumflex and AV groove. RCA dominant vessel calcified proximal 40% mid 90% after stent and distal 50% PLV small-caliber 99% branch vessel occluded PDA is a small-caliber vessel patent with normal LV function Cardiac catheterization 07/10/2021- ef 25-30% after cardiac arrest, no change in LCA anantomy and rca mid 90% lenny 3 flow thrombotic vessel. transfer to [place] for pci of rca Outpatient medications: Aspirin, Brilinta 90 mg p.o. twice daily, simvastatin 40 mg p.o. nightly, (patient not on beta-blockers, ELIEL or ARB due to low blood pressure) Plan: EKG shows sinus tach 107 with left atrial enlargement. No acute ischemic changes. Patient denies any complaint of chest Troponins noted to be elevated at 0.5 however troponins are lower than previous admissions. Troponin elevation also in setting of pneumonia and end-stage renal disease BNP noted to be elevated in setting of end-stage renal disease requiring dialysis. Patient appears euvolemic on exam. Patient does not appear to be clinically in heart failure Suspect respiratory failure likely related to pneumonia Will defer volume management to nephrology due to renal function and in end- stage renal disease Patient initially was given Plavix however as an outpatient patient is on Brilin ta. Will continue DAPT therapy with aspirin and Brilinta Continue statin therapy Patient seen in conjunction with Dr. Lara who agrees with this plan of care - Patient Problems (1) Acute respiratory failure Current Visit: Yes Status: Acute Qualifiers: Respiratory failure complication: hypoxia Qualified Code(s): J96.01 - Acute respiratory failure with hypoxia (2) End stage renal disease Current Visit: Yes Status: Acute (3) Pneumonia Current Visit: Yes Status: Acute (4) Pulmonary edema Current Visit: Yes Status: Acute Qualifiers: Chronicity: acute Qualified Code(s): J81.0 - Acute pulmonary edema (5) End stage renal disease on dialysis Current Visit: Yes Status: Chronic (6) Leukocytosis Current Visit: No Status: Acute (7) NSTEMI (non-ST elevated myocardial infarction) Current Visit: No Status: Acute (8) History of CVA (cerebrovascular accident) Current Visit: No Status: Chronic (9) Hyperlipidemia Current Visit: No Status: Chronic Qualifiers: Hyperlipidemia type: mixed hyperlipidemia Qualified Code(s): E78.2 - Mixed hyperlipidemia (10) Obesity Current Visit: No Status: Chronic Qualifiers: Obesity type: unspecified obesity type (11) Stented coronary artery Current Visit: No Status: Chronic
[2021-10-08] MEDS: SODIUM BICARBONATE 650 MG TAB PO SCH (21:13)
[2021-10-08] MEDS: PRAVASTATIN 40 MG TAB PO SCH (21:13)
[2021-10-09] MEDS: DIALYSATE LO CAL 1.5% SOLN 2000 ML IP SCH ×5 (01:42→23:35)
[2021-10-09] MEDS: FUROSEMIDE 20 MG/2 ML INJ IV SCH (05:32)
[2021-10-09] MEDS: SODIUM BICARBONATE 650 MG TAB PO SCH ×2 (09:14→23:36)
[2021-10-09] MEDS: CALCITRIOL 0.5 MCG CAP PO SCH (09:15)
[2021-10-09] MEDS: TICAGRELOR 90 MG TAB PO SCH ×2 (09:15→23:36)
[2021-10-09] MEDS: SUCRALFATE 1 GM TAB PO SCH ×4 (09:15→23:36)
[2021-10-09] MEDS: AZITHROMYCIN 250 MG TAB PO SCH (09:15)
[2021-10-09] MEDS: PANTOPRAZOLE 40 MG TAB PO SCH ×2 (09:15→23:36)
[2021-10-09] MEDS: ASPIRIN 81 MG TAB CHEW PO SCH (09:16)
[2021-10-09] MEDS: METOPROLOL TARTRATE 25 MG TAB PO SCH ×2 (09:18→23:37)
[2021-10-09] MEDS: LISINOPRIL 5 MG TAB PO SCH ×2 (09:21→23:37)
--- NOTE | 2021-10-09 13:12 | Electrocardiograph Report ---
[facility] [place] [facility] Test Date: 2021-10-07 Test Time: 14:27:33 Pat Name: AILYN BRAMBILA Department: Room: A456 Gender: F Director Of Scientific Research: CADEN : 1965 Requested By: DELORES FLOYD Order Number: [id number] Reading MD: Luis Dumas Measurements Intervals [place] Rate: 107 P: 67 AR: 162 QRS: 108 QRSD: 100 T: 232 QT: 359 QTc: 480 Interpretive Statements Sinus tachycardia Left atrial enlargement Anterolateral infarct, age indeterminate Compared to ECG 07/08/2021 05:11:52 Sinus rate has increased Electronically Signed On 10-09-2021 13:11:45 EST by Luis Dumas
--- NOTE | 2021-10-09 13:26 | Progress Note ---
Assessment and Plan - Patient Problems (1) Pneumonia Current Visit: Yes Status: Acute Plan to address problem: Cont IV ABXs with ceftriaxone, no renal adjustment necessary (2) Acute respiratory failure Current Visit: Yes Status: Acute Qualifiers: Respiratory failure complication: hypoxia Qualified Code(s): J96.01 - Acute respiratory failure with hypoxia Plan to address problem: O2 sat improved on supplemental 2L O2 via NC (3) End stage renal disease Current Visit: Yes Status: Acute Plan to address problem: Cont manual peritoneal dialysis using 2L dwell volume, 1.5% dineal solution q6hrs, given borderline low BP on admission in the setting of Pneumonia. If Ultrafiltration/solute clearance is not adequate will increase to 2.5% dineal. Strict I/Os (4) Acidosis Current Visit: Yes Status: Acute Plan to address problem: started po sodium bicarb (5) Type 2 diabetes mellitus with diabetic chronic kidney disease Current Visit: No Status: Chronic Qualifiers: Diabetes mellitus custodial insulin use: with custodial use Chronic kidney disease stage: on chronic dialysis Qualified Code(s): E11.22 - Type 2 diabetes mellitus with diabetic chronic kidney disease; N18.6 - End stage renal disease; Z79.4 - senior care (current) use of insulin; Z99.2 - Dependence on renal dialysis Plan to address problem: diabetes management as per primary attending Subjective Date of service: 10/09/21 Principal diagnosis: ESRD Interval history: Patient awake, alert, in no acute respiratory distress, denies fever, chills, n/v/d Objective - Vital Signs Vital signs: Vital Signs - 12hr 10/09/21 10/09/21 10/09/21 03:59 07:25 09:18 Temperature 98.0 F 97.8 F Pulse Rate 77 78 82 Respiratory 16 Rate Blood Pressure 135/64 126/64 O2 Sat by Pulse 97 100 Oximetry 10/09/21 10/09/21 09:21 11:55 Temperature 98.3 F Pulse Rate 82 80 Respiratory Rate Blood Pressure 118/42 O2 Sat by Pulse 93 Oximetry - General Appearance General appearance: well-developed, well-nourished, appears stated age EENT: ATNC, PERRL, mucous membranes moist Neck: no JVD Respiratory: Present: Clear to Ascultation Cardiology: regular, S1S2 Gastrointestinal: normoactive bowel sounds Integumentary: no rash, other (no edema ) Neurologic: no focal deficit, alert and oriented x3, strength 5/5, CN 3-12 intact Psychiatric: mood/affect appropriate, cooperative - Lab 10/08/21 04:31 10/08/21 04:31 Most recent lab results ABG pH 7.275 pH Units (7.350-7.450) L 10/07/21 13:25 ABG pCO2 36.1 mm Hg 10/07/21 13:25 ABG pO2 116.3 mm Hg (80.0-90.0) H 10/07/21 13:25 ABG HCO3 16.4 mmol/L (20.0-26.0) L 10/07/21 13:25 ABG O2 Saturation 97.9 % (95.0-99.0) 10/07/21 13:25 Calcium 8.3 mg/dL (8.4-10.2) L 10/08/21 04:31 Medications & Allergies - Medications Allergies/Adverse Reactions: Allergies Iodinated Contrast Media Allergy (Verified 10/07/21 13:56) RENAL FAILURE Sulfa (Sulfonamide Antibiotics) Allergy (Verified 10/07/21 13:56) Swelling Home Medications: Home Medications Medication Instructions Recorded Confirmed Last Taken Type Aspirin EC [Ecotrin] 325 mg PO QDAY #30 tablet 06/01/14 10/09/21 07/05/21 Rx Simvastatin (Nf) [Zocor TAB] 20 mg PO QHS #30 tablet 07/18/16 10/09/21 07/05/21 Rx calcitrioL [Rocaltrol] 2 tab PO DAILY 04/05/18 10/09/21 07/05/21 History Sucralfate [Carafate] 1 gm PO ACHS 30 Days #120 tablet 11/18/19 10/09/21 07/05/21 Rx glipiZIDE [Glucotrol] 10 mg PO BID 07/08/21 10/09/21 07/05/21 History Clopidogrel [Plavix] 75 mg PO QDAY 07/09/21 10/09/21 1 Week Ago History ~07/02/21 Furosemide [Lasix TAB] 40 mg PO BID 07/09/21 10/09/21 07/05/21 History Insulin NPH Hum/Reg Insulin Hm 15 unit SQ AC 07/09/21 10/09/21 07/05/21 History [Novolin 70-30 Flexpen] Pantoprazole [Protonix] 40 mg PO BID 07/09/21 10/09/21 07/05/21 History Gabapentin 100 mg PO BID 10/09/21 10/09/21 3 Days Ago History ~10/06/21 Active Medications: Generic Name Dose Route Start Last Admin Trade Name Freq PRN Reason Stop Dose Admin Acetaminophen 650 mg 10/07/21 15:35 10/07/21 21:42 Acetaminophen 325 Mg Tab PO 650 mg Q6H PRN Administration Pain MILD(1-3)/Fever >100.5/MCCOY Albuterol 2.5 mg 10/07/21 15:35 Albuterol 2.5 Mg/3 Ml Nebu IH Q3HRT PRN Shortness Of Breath Aspirin 81 mg 10/09/21 10:00 10/09/21 09:16 Aspirin 81 Mg Tab Chew PO 81 mg QDAY SELENA Administration Azithromycin 500 mg 10/08/21 10:00 10/09/21 09:15 Azithromycin 250 Mg Tab PO 10/12/21 10:01 500 mg QDAY SELENA Administration Protocol Calcitriol 1 mcg 10/08/21 10:00 10/09/21 09:15 Calcitriol 0.5 Mcg Cap PO 1 mcg DAILY SELENA Administration Dextrose 0 ml 10/08/21 07:59 Dextrose 10% *Hypoglycemia IV PRN PRN Hypoglycemia Hydromorphone HCl 0.5 mg 10/07/21 15:35 10/08/21 17:31 Hydromorphone 1 Mg/1 Ml Inj IV 0.5 mg Q12H PRN Administration Pain , Severe (7-10) Ceftriaxone Sodium 2 gm in 100 mls @ 200 mls/hr 10/07/21 16:00 10/08/21 16:11 Rocephin/Ns 2 Gm/100 Ml IV 10/11/21 16:29 200 mls/hr Q24H SELENA Administration Protocol Lisinopril 2.5 mg 10/07/21 22:00 10/09/21 09:21 Lisinopril 5 Mg Tab PO Not Given BID SELENA Metoprolol Tartrate 12.5 mg 10/07/21 22:00 10/09/21 09:18 Metoprolol Tartrate 25 Mg Tab PO 12.5 mg BID SELENA Administration Nitroglycerin 0.4 mg 10/07/21 15:35 Nitroglycerin 0.4 Mg Tab Subl SL .Q5MIN PRN Chest Pain Oxycodone/Acetaminophen 1 tab 10/07/21 15:35 Oxycodone /Acetaminophen 5-325mg Tab PO Q6H PRN Pain, Moderate (4-6) Pantoprazole Sodium 40 mg 10/07/21 22:00 10/09/21 09:15 Pantoprazole 40 Mg Tab PO 40 mg BID SELENA Administration Peritoneal Dialysis Solution 2,000 ml 10/09/21 02:00 10/09/21 09:16 Dialysate Lo Gaudencio 1.5% Soln 2000 Ml IP 2,000 ml Q6H SELENA Administration Pravastatin Sodium 40 mg 10/07/21 22:00 10/08/21 21:13 Pravastatin 40 Mg Tab PO 40 mg QHS SELENA Administration Sodium Bicarbonate 650 mg 10/08/21 22:00 10/09/21 09:14 Sodium Bicarbonate 650 Mg Tab PO 650 mg BID SELENA Administration Sodium Chloride 10 ml 10/07/21 22:00 10/09/21 09:21 Sodium Chloride 0.9% 10 Ml Flush Syringe IV 10 ml BID SELENA Administration Sodium Chloride 10 ml 10/07/21 15:35 Sodium Chloride 0.9% 10 Ml Flush Syringe IV PRN PRN LINE FLUSH Sucralfate 1 gm 10/07/21 16:30 10/09/21 09:15 Sucralfate 1 Gm Tab PO 1 gm ACHS SELENA Administration Ticagrelor 90 mg 10/09/21 10:00 10/09/21 09:15 Ticagrelor 90 Mg Tab PO 90 mg BID SELENA Administration
--- NOTE | 2021-10-09 13:48 | Progress Note ---
Assessment and Plan - continue PD for toxin and volume clearance - prn supplemental oxygen to keep O2 sats > 90% - bronchodilators (ESTEVAN) with pulm hygiene per RT - continue to avoid nephrotoxins, renally dose all medications - mobility protocols to prevent pressure ulcers - PT/OT as tolerated - Wound care per RN/WCT - continue accuchecks with glycemic control per SSI for target blood glucose < 180 mg/dL - continued tobacco abstinence strongly counseled at the bedside - home oxygen evaluation at discharge - GI & VTE prophylaxis - Flu & pneumovax per protocol - Pulmonary out patient follow up for PFTs and optimization of respiratory status - continue other care per attending / other consultants - prn analgesia per pain score ... re-evaluate in am & prn Subjective Date of service: 10/09/21 Principal diagnosis: ESRD Interval history: Patient is seen today for: Seen and examined at bedside; 24hour events reviewed; nursing and respiratory care staff consulted; no adverse overnight events reported to me; resting in bed; Objective Vital Signs - 12hr 10/09/21 10/09/21 10/09/21 03:59 07:25 09:18 Temperature 98.0 F 97.8 F Pulse Rate 77 78 82 Respiratory 16 Rate Blood Pressure 135/64 126/64 O2 Sat by Pulse 97 100 Oximetry 10/09/21 10/09/21 09:21 11:55 Temperature 98.3 F Pulse Rate 82 80 Respiratory Rate Blood Pressure 118/42 O2 Sat by Pulse 93 Oximetry CBC and BMP: 10/08/21 04:31 10/08/21 04:31 ABG, PT/INR, D-dimer: ABG ABG pH 7.275 pH Units (7.350-7.450) L 10/07/21 13:25 ABG pCO2 36.1 mm Hg 10/07/21 13:25 ABG pO2 116.3 mm Hg (80.0-90.0) H 10/07/21 13:25 ABG O2 Saturation 97.9 % (95.0-99.0) 10/07/21 13:25 PT/INR, D-dimer D-Dimer 1622.39 ng/mlDDU (0-234) H 10/07/21 13:50 Abnormal lab findings: Abnormal Labs 10/07/21 10/07/21 10/07/21 13:25 13:50 13:50 WBC 13.5 H RDW 16.2 H Lymph % (Auto) 6.3 L [place] % (Auto) Lymph # (Auto) 0.8 L Seg Neutrophils % 87.6 H Seg Neutrophils # 11.8 H D-Dimer ABG pH 7.275 L ABG pO2 116.3 H ABG HCO3 16.4 L ABG Base Excess -9.6 L Chloride 92.5 L Carbon Dioxide 13 L BUN 69 H Creatinine 16.8 H Glucose 134 H POC Glucose Calcium Ferritin Lactate Dehydrogenase Troponin T 0.547 H* NT-Pro-B Natriuret Pep Albumin 3.3 L 10/07/21 10/07/21 10/07/21 13:50 13:50 13:50 WBC RDW Lymph % (Auto) [place] % (Auto) Lymph # (Auto) Seg Neutrophils % Seg Neutrophils # D-Dimer 1622.39 H ABG pH ABG pO2 ABG HCO3 ABG Base Excess Chloride Carbon Dioxide BUN Creatinine Glucose POC Glucose Calcium Ferritin 675.6 H Lactate Dehydrogenase 323 H Troponin T NT-Pro-B Natriuret Pep Albumin 10/07/21 10/08/21 10/08/21 14:11 04:31 04:31 WBC RDW 15.6 H Lymph % (Auto) 12.3 L [place] % (Auto) 7.5 H Lymph # (Auto) Seg Neutrophils % 77.2 H Seg Neutrophils # 7.8 H D-Dimer ABG pH ABG pO2 ABG HCO3 ABG Base Excess Chloride 95.9 L Carbon Dioxide 17 L BUN 75 H Creatinine 16.1 H Glucose POC Glucose Calcium 8.3 L Ferritin Lactate Dehydrogenase Troponin T NT-Pro-B Natriuret Pep 26119 H Albumin 10/08/21 10/08/21 07:48 11:27 WBC RDW Lymph % (Auto) [place] % (Auto) Lymph # (Auto) Seg Neutrophils % Seg Neutrophils # D-Dimer ABG pH ABG pO2 ABG HCO3 ABG Base Excess Chloride Carbon Dioxide BUN Creatinine Glucose POC Glucose 57 L 120 H Calcium Ferritin Lactate Dehydrogenase Troponin T NT-Pro-B Natriuret Pep Albumin
--- NOTE | 2021-10-09 13:53 | Progress Note ---
Assessment and Plan 55 YO Female with Obesity Hypoventilation Syndrome, Systolic/Diastolic CHF(EF 40%),Pulmonary HTN, GERD, DM, ND complicated by Cardiac Arrest, CAD S/P Stent Placement on DAPT, HLD, ESRD on PD presents to ED for evaluation. Patient reports "it is hard to breathe". Patient states that she had experienced shortness of breath over the past 1 week with persistent and worsening symptoms over the same timeframe. Patient was diagnosed with pneumonia and treated with oral antibiotic therapy without improvement in symptoms. Patient subsequently failed outpatient management. Patient acknowledges decline exertion, dyspnea at rest, decreased exercise tolerance, orthopnea, paroxysmal nocturnal dyspnea. EMS was notified and upon arrival the patient was found to be in distress and subsequently transported to [facility] for further care and evaluation of the aforementioned symptoms. The patient was seen and evaluated in the emergency department. All lab and imaging studies reviewed. Patient found to have limited responsiveness due to use of accessory muscles of breathing. Patient was tripoding, unable to speak in complete sentences. Patient also found to have a pulse oximetry of 86% on room air which is consistent with acute hypoxemi c respiratory failure. Patient treated with supplemental oxygen without improvement in symptoms. Patient subsequently placed on noninvasive positive pressure ventilation with mild improvement in symptoms. Patient also to have pneumonia, as well as clinical symptoms consistent with CHF decompensation, systemic inflammatory response syndrome, acidosis, and pulmonary hypertension. Patient found to have end-stage renal disease in need of urgent dialysis. Patient admitted to [facility] and initiated on pneumonia protocol as well as CHF protocol. Cardiology team consulted in ED. Patient uses head gestures and denies fever, chills, chest pain, palpitation, skin rash, recent contact, known exposure to COVID-19. Prior admission on 07/06/2021 reviewed. All medication listed at time of admission has been reconciled. Advanced care planning conducted in ED. VQ scan ordered and is pending at time of admission. Nephrology team consulted in ED for resumption of dialysis. 3/2: Patient seen and examined this morning shows improvement but not quite at baseline. Awaiting HD for today. States that she was not feeling well and as a result could not do her peritoneal dialysis. Will obtain a pulmonary consultation in addition for further management due to not her shortness of breath. Covid testing was done will await results. For now we will transfer patient to telemetry when she is clinically improved 3/3: cont abx, PT eval. possible d/c in the am (1) Acute systolic CHF (congestive heart failure) Current Visit: No Status: Acute Plan to address problem: CHF protocol: Strict I's/O, monitor urine output every shift, daily weight, afterload reduction, blood pressure control, monitor fluid balance, afterload reduction. Cardiology team consulted. (2) Acute respiratory failure Current Visit: Yes Status: Acute Qualifiers: Respiratory failure complication: hypoxia Qualified Code(s): J96.01 - Acute respiratory failure with hypoxia Plan to address problem: Noninvasive positive pressure ventilation in place at time of my evaluation, VQ scan ordered and is pending at time of admission, supplemental oxygen, pulse oximetry, nebulizer therapy. Chest x-ray. (3) Pneumonia Current Visit: Yes Status: Acute Plan to address problem: Pneumonia protocol: Chest x-ray, CBC, CMP, IV antibiotic therapy, supplemental oxygen, pulse oximetry. (4) End stage renal disease Current Visit: Yes Status: Acute Plan to address problem: Nephrology team consulted in ED, urgent dialysis as per renal team, strict I/O, avoid nephrotoxic agents, supportive care. (5) Acidosis Current Visit: Yes Status: Acute Plan to address problem: Supportive care, treat pneumonia. (6) SIRS (systemic inflammatory response syndrome) Current Visit: Yes Status: Acute Plan to address problem: IV antibiotic therapy, CBC, repeat CBC in a.m. (7) Pulmonary edema Current Visit: Yes Status: Acute Qualifiers: Chronicity: acute Qualified Code(s): J81.0 - Acute pulmonary edema Plan to address problem: Strict I/O, monitor urine output every shift, urgent dialysis, nephrology team consulted in ED, chest x-ray. (8) DVT prophylaxis Current Visit: Yes Status: Acute Plan to address problem: SCD bilateral lower extremities while in bed (9) Advance care planning Current Visit: Yes Status: Acute Plan to address problem: Disease education conducted, care plan discussed, diagnoses discussed, prognosis discussed, patient is full code, patient knowledges understanding and agreement with care plan, +30 minutes. Subjective Date of service: 10/09/21 Principal diagnosis: ESRD Objective - Constitutional Vitals: Vital Signs - 12hr 10/09/21 10/09/21 10/09/21 03:59 07:25 09:18 Temperature 98.0 F 97.8 F Pulse Rate 77 78 82 Respiratory 16 Rate Blood Pressure 135/64 126/64 O2 Sat by Pulse 97 100 Oximetry 10/09/21 10/09/21 09:21 11:55 Temperature 98.3 F Pulse Rate 82 80 Respiratory Rate Blood Pressure 118/42 O2 Sat by Pulse 93 Oximetry - Labs CBC & Chem 7: 10/08/21 04:31 10/08/21 04:31 HEART Score - HEART Score Troponin: Troponin T 0.547 ng/mL (0.00-0.029) H* 10/07/21 13:50
--- NOTE | 2021-10-09 15:10 | Progress Note ---
Assessment and Plan Patient is a 55-year-old female with a past medical history of coronary artery disease s/p PCI, ischemic cardiomyopathy, end-stage renal disease on peritoneal dialysis, diabetes, hypertension, mitral valve regurgitation, pulmonary hypertension who reported to the ED yesterday for complaint of difficulty in breathing Acute respiratory failure-pulmonology follow Pneumonia Coronary artery disease s/p PCI Ischemic cardiomyopathy End-stage renal disease on peritoneal dialysis-nephrology following Pulmonary hypertension Diabetes Echo 07/06/2021-EF 40 to 45%. Regional wall abnormalities noted. The apex as well as mid and apical anterior septal and inferior septal genao are severely hypokinetic severe diastolic dysfunction is present restrictive filling pattern. Right ventricle is moderately dilated. Right ventricle is moderately hypokinetic. Left atrium moderately dilated. Right atrium mildly dilated. Moderate pulmonary hypertension Cardiac cath 06/25/2021- PCI of the mid RCA with drug-eluting resolute 3.0 x 22 mm. left main short large vessel patent LAD is a large-caliber vessel proximal mild luminal irregularities mid stent patent distal apex small vessel less than 2 m diffuse 80-90% lesion. Small diagonal 1 diagonal 2 patent circumflex medium caliber vessel patent calcified proximal patent with mild luminal irregularities goes into a small OM1 this diffusely disease proximal and mid 8090% after OM the [place] circumflex 100% with left to left collaterals feeding 2 small-caliber circumflex and AV groove. RCA dominant vessel calcified proximal 40% mid 90% after stent and distal 50% PLV small-caliber 99% branch vessel occluded PDA is a small-caliber vessel patent with normal LV function Cardiac catheterization 07/10/2021- ef 25-30% after cardiac arrest, no change in LCA anantomy and rca mid 90% lenny 3 flow thrombotic vessel. transfer to [place] for pci of rca Outpatient medications: Aspirin, Brilinta 90 mg p.o. twice daily, simvastatin 40 mg p.o. nightly, (patient not on beta-blockers, ELIEL or ARB due to low blood pressure) Plan: Patient remains chest pain-free Troponins noted to be elevated at 0.5 however troponins are lower than previous admissions. Troponin elevation also in setting of pneumonia and end-stage renal disease BNP noted to be elevated in setting of end-stage renal disease requiring dialysis. Patient appears euvolemic on exam. Patient does not appear to be clinically in heart failure Suspect respiratory failure likely related to pneumonia Will defer volume management to nephrology due to renal function and in end- stage renal disease Continue DAPT therapy with aspirin and Brilinta Continue statin therapy Cardiac status otherwise stable we will see patient as needed Patient should follow with her primary perinatal nurse in 1 to 2 weeks after discharge Patient seen in conjunction with Dr. Lara who agrees with this plan of care - Patient Problems (1) Acute respiratory failure Current Visit: Yes Status: Acute Qualifiers: Respiratory failure complication: hypoxia Qualified Code(s): J96.01 - Acute respiratory failure with hypoxia (2) End stage renal disease Current Visit: Yes Status: Acute (3) Pneumonia Current Visit: Yes Status: Acute (4) Pulmonary edema Current Visit: Yes Status: Acute Qualifiers: Chronicity: acute Qualified Code(s): J81.0 - Acute pulmonary edema (5) End stage renal disease on dialysis Current Visit: Yes Status: Chronic (6) Leukocytosis Current Visit: No Status: Acute (7) NSTEMI (non-ST elevated myocardial infarction) Current Visit: No Status: Acute (8) History of CVA (cerebrovascular accident) Current Visit: No Status: Chronic (9) Hyperlipidemia Current Visit: No Status: Chronic Qualifiers: Hyperlipidemia type: mixed hyperlipidemia Qualified Code(s): E78.2 - Mixed hyperlipidemia (10) Obesity Current Visit: No Status: Chronic Qualifiers: Obesity type: unspecified obesity type (11) Stented coronary artery Current Visit: No Status: Chronic Subjective Date of service: 10/09/21 Principal diagnosis: ESRD Interval history: Patient resting in bed in no acute distress. Patient reports feeling better today Patient sinus 80s on monitor with no events Objective Vital Signs Temp Pulse Resp BP Pulse Ox 10/09/21 11:55 98.3 F 80 118/42 93 10/09/21 09:21 82 10/09/21 09:18 82 10/09/21 07:25 97.8 F 78 126/64 100 10/09/21 03:59 98.0 F 77 16 135/64 97 10/09/21 01:13 24 98 10/08/21 23:24 97.9 F 79 18 122/47 100 10/08/21 22:00 78 10/08/21 20:00 24 98 10/08/21 19:38 98.1 F 77 16 139/80 97 10/08/21 16:31 109/67 100 10/08/21 16:15 109/67 99 10/08/21 16:00 75 19 109/67 99 10/08/21 15:45 75 22 115/53 100 10/08/21 15:31 74 20 115/53 100 10/08/21 15:15 74 18 97/61 100 - Physical Examination General: No Apparent Distress HEENT: Positive: Normocephaly Neck: Positive: neck supple Cardiac: Positive: Reg Rate and Rhythm Lungs: Positive: Decreased Breath Sounds Neuro: Positive: Grossly Intact Abdomen: Positive: Soft Skin: Negative: Rash, Suspicious Lesions, Ulceration Extremities: Present: upper extr. pulses. Absent: edema - Imaging and Cardiology Echo: report reviewed Cardiac cath: report reviewed - Telemetry EKG Rhythm: Sinus Rhythm - EKG Sinus rhythms and dysrhythmias: sinus rhythm
[2021-10-09] MEDS: cefTRIAXone/NS 2 GM/100 ML 2 GM/100 ML BAG IV SCH (16:07)
--- NOTE | 2021-10-09 21:58 | Consultation ---
DATE OF CONSULTATION: 10/08/2021 PULMONARY CRITICAL CARE CONSULTATION NOTE CONSULTING PHYSICIAN: Dr. Rankin. REASON FOR CONSULTATION: Respiratory failure. CHIEF COMPLAINT AND HISTORY OF PRESENT ILLNESS: The patient is a now 55-year-old female with past medical history significant amongst other things for a diagnosis of morbid obesity, but also end-stage renal disease on peritoneal dialysis, came to the Emergency Room complaining of shortness of breath that had been going on for a few days, but was in particular bad on the day of presentation. She was hypoxemic, initially placed on a nonrebreather. She denied any history of pulmonary disorders. She has had pneumonia in the past. Apparently, she saw her primary care physician who told her she had pneumonia. She does not know if a chest x-ray was done. As far as she knows, she does not have any coronavirus-19 infection nor has she been exposed to anybody with disease. She denied any new-onset leg pain or swelling, either unilaterally or bilaterally. Denied any chest pain. She denied any hemoptysis. She was evaluated in the Emergency Room, found to indeed be hypoxemic and we are asked to assist with management. When I stopped by to see her, she was resting in bed, feeling a little bit better. She was about to begin peritoneal dialysis. She remained on supplemental oxygen to about 5 liters of nasal cannula when I saw her. With regards to tobacco use or abuse history, she denies a history of tobacco use. This really is as much of the history of this presentation as I have. PAST MEDICAL HISTORY: Again, significant for a diagnosis of coronary artery disease, history of diabetes, history of end-stage renal disease on dialysis, history of gastroesophageal reflux disease, and history of hypertension. PAST SURGICAL HISTORY: She has had a cholecystectomy. She has had a peritoneal dialysis catheter placement. MEDICATIONS: She was on at the time I stopped by to see her were reviewed. Pertinent medications included the following: She was on Tylenol 650 mg p.o. q. 6 hours p.r.n. mild pain or fevers, albuterol nebulizer treatments 2.5 mg nebulized q. 3 hours p.r.n. shortness of breath, aspirin 81 mg p.o. daily, azithromycin 500 mg p.o. daily, calcitriol 1 mcg p.o. daily, Lasix 20 mg IV b.i.d., Dilaudid 0.5 mg IV q. 12 hours p.r.n. severe pain, Rocephin 2 grams IV daily, lisinopril 2.5 mg p.o. b.i.d., metoprolol 12.5 mg p.o. b.i.d., p.r.n. sublingual nitroglycerin for chest pain, oxycodone 1 tablet 5/325 one tablet p.o. q. 6 hours p.r.n. moderate pain, Protonix 40 mg p.o. b.i.d., pravastatin 40 mg p.o. at bedtime and Carafate 1 gram p.o. q.a.c. and at bedtime. She is also on a ticagrelor 90 mg p.o. b.i.d. ALLERGIES: IV CONTRAST as well as SULFA ANTIBIOTICS. Nature of this allergy is unknown. DIET: Morbidly obese lady, denies acute weight loss or gain in the preceding few weeks to months. FAMILY AND SOCIAL HISTORY: Lives in the community. She is single. Denies alcohol, tobacco, or illicit drug use or abuse. FAMILY HISTORY: Has a history of coronary artery disease, diabetes, and hypertension in the family. Family history is otherwise noncontributory. REVIEW OF SYSTEMS: Denies loss of consciousness. No new-onset seizures. No new-onset focal weakness. Denies gross hematochezia or melena. Denies gross hematuria or dysuria. No hematemesis, no hemoptysis. Denies abdominal pain. Denies heat or cold intolerance. Denied polydipsia, denied polyuria. She did have the shortness of breath, denied palpitations. A complete 13-system review of system was obtained. Pertinent positives and/or negatives as in body of history above, otherwise noncontributory. PHYSICAL EXAMINATION: VITAL SIGNS: At presentation, she was afebrile. Temperature 98.8 degrees Fahrenheit, pulse of 122, respiratory rate of 16, blood pressure 159/97, O2 sats 99%. Inspired oxygen concentration at that time was not recorded. Respiratory rate was as high as 36 in the ER, described as labored and shallow. When I saw her, she was 98% on 40% FiO2. GENERAL: She is a middle-aged, obese female. Normocephalic, atraumatic. Resting in bed with mildly increased respiratory effort at rest. HEAD, EYES, EARS, NOSE AND THROAT: Anicteric. No conjunctival erythema. Oropharynx was moist. No gross jugular venous distention, no thyromegaly. She does have a large neck circumference. Grossly, there were no palpable lymph nodes in the supraclavicular or submandibular lymph node chains. LUNGS: Auscultation of both lung hess revealed bilateral breath sounds, bibasilar predominant inspiratory rales, no active wheezing. HEART: Heart sounds 1 and 2 are heard at the time of my evaluation, regular rate and rhythm without overt rubs or murmurs. ABDOMEN: Soft, full, protuberant. Bowel sounds are positive, nontender. No palpable hepatosplenomegaly. EXTREMITIES: Without overt digital clubbing or cyanosis. She had trace to 1+ pedal edema. Pedal pulses are 2+ bilaterally. NEUROLOGIC: Pupils are equal, round, about 4 mm, reactive to light. Extraocular muscle movements are intact. She moves all 4 extremities spontaneously. SKIN: Normal turgor in the areas I examined without overt cellulitis or rash. Please see the wound care nurses' notes for full description of her skin. PSYCHIATRIC: Mood was normal. Affect was appropriate. She had intact judgment and insight. LABORATORY DATA: From my review are as follows: Admission white cell count 13,500, hemoglobin 11.7, hematocrit 37.7, platelet count 231. No manual differential. D-dimer was elevated at 1622. Arterial blood gas showed a pH of 7.28, pCO2 of 36, pO2 of 116, that was on 100% FiO2 at that time. Serum sodium 138, potassium 4.0, chloride 93, bicarbonate 13, BUN 69, creatinine 16.8, glucose 134. Ferritin slightly elevated at 676. Liver function tests within normal limits. Troponin was up at 0.547. CRP was unremarkable at 0.90. Procalcitonin 0.32. Coronavirus PCR test was done and is pending. No blood cultures for my review. Chest x-ray was reviewed. I was able to compare with a chest x-ray from June of last year of 2020. Lower lung volumes today, diffuse bilateral infiltrates, left greater than right. Actually, the similar presentation in the last chest x-ray, except for the lower lung volumes, likely has a small right pleural effusion and cannot rule out a pneumonia. Infiltrates are diffusely irregular and increased from the last one. No gross pneumothorax, no gross bony fracture. She also did go for a nuclear medicine V/Q scan, results are pending. ASSESSMENT: 1. Acute hypoxemic respiratory failure. 2. Acute pulmonary edema. 3. Pneumonia, community-acquired. 4. End-stage renal disease, on peritoneal dialysis. 5. Mild metabolic acidosis. 6. Leukocytosis. 7. Elevated serum D-dimers. 8. [id number] myocardial infarction. 9. Morbid obesity. PLAN: I do agree with empiric community-acquired pneumonia therapy. Oxygen will be weaned to keep sats greater than or equal to about 90%. Aspiration precautions will be maintained. Noninvasive ventilation will be offered if she decompensates. She will benefit from a sleep study on the outpatient basis. She is about to begin peritoneal dialysis. I will defer to the state fire marshal in terms of duration of treatment. Otherwise, she is appropriately on GI prophylaxis. DVT prophylaxis will be ordered. I will get bilateral lower extremity Dopplers to evaluate for deep venous thrombosis and follow the nuclear medicine V/Q scan. Flu and pneumonia vaccination will be addressed per protocol. Thank you very much for the consult. We will follow along and make further recommendations as picture progresses/becomes clearer. TID: [id number] RECEIPT: [id number] NATHAN/ALE
[2021-10-09] MEDS ORDERED: GABAPENTIN 100 MG PO SCH (22:00)
[2021-10-09] MEDS: HEPARIN 5,000 UNIT/1 ML VIAL SUB-Q SCH (23:36)
[2021-10-09] MEDS: PRAVASTATIN 40 MG TAB PO SCH (23:36)
[2021-10-09] MEDS: GABAPENTIN 100 MG CAP PO SCH (23:36)
[2021-10-10] MEDS: DIALYSATE LO CAL 1.5% SOLN 2000 ML IP SCH ×3 (02:41→14:40)
[2021-10-10] MEDS ORDERED: [UNRECOGNIZED DRUG - OTHER] SQ SCH (07:30)
[2021-10-10] MEDS ORDERED: INS SQ SCH (07:30)
[2021-10-10] MEDS ORDERED: REG INSULIN SQ SCH (07:30)
[2021-10-10] MEDS ORDERED: INSULIN NPH HUM SQ SCH (07:30)
[2021-10-10] MEDS: INSULIN NPH/REGULAR 70/30 INJ SUB-Q SCH ×3 (08:10→16:49)
[2021-10-10] MEDS: LISINOPRIL 5 MG TAB PO SCH (09:46)
[2021-10-10] MEDS: METOPROLOL TARTRATE 25 MG TAB PO SCH (09:46)
[2021-10-10 10:06] LABS: Calcium 8.9 mg/dL (8.4-10.2)
[2021-10-10] MEDS: AZITHROMYCIN 250 MG TAB PO SCH (10:16)
[2021-10-10] MEDS: PANTOPRAZOLE 40 MG TAB PO SCH (10:16)
[2021-10-10] MEDS: CALCITRIOL 0.5 MCG CAP PO SCH (10:16)
[2021-10-10] MEDS: TICAGRELOR 90 MG TAB PO SCH (10:16)
[2021-10-10] MEDS: SUCRALFATE 1 GM TAB PO SCH ×2 (10:16→12:47)
[2021-10-10] MEDS: SODIUM BICARBONATE 650 MG TAB PO SCH (10:16)
[2021-10-10] MEDS: ASPIRIN 81 MG TAB CHEW PO SCH (10:16)
[2021-10-10] MEDS: HEPARIN 5,000 UNIT/1 ML VIAL SUB-Q SCH (10:17)
[2021-10-10] MEDS: GABAPENTIN 100 MG CAP PO SCH (10:17)
--- NOTE | 2021-10-10 11:10 | Progress Note ---
Assessment and Plan - Patient Problems (1) Acute respiratory failure Status: Acute Qualifiers: Respiratory failure complication: hypoxia Qualified Code(s): J96.01 - Acute respiratory failure with hypoxia (2) Acidosis Status: Acute (3) End stage renal disease Status: Acute (4) Pneumonia Status: Acute (5) Pulmonary edema Status: Acute Qualifiers: Chronicity: acute Qualified Code(s): J81.0 - Acute pulmonary edema (6) Acute systolic CHF (congestive heart failure) Status: Acute (7) CVA (cerebral vascular accident) Status: Acute Qualifiers: CVA mechanism: unspecified Qualified Code(s): I63.9 - Cerebral infarction, unspecified (8) Diabetes mellitus, type 2 Status: Chronic (9) HTN (hypertension) Status: Chronic (10) Obesity Status: Chronic Qualifiers: Obesity type: unspecified obesity type Subjective Date of service: 10/10/21 Principal diagnosis: ESRD Interval history: Patient diacharged before I see the patient to day. Objective Vital Signs - 12hr 10/09/21 10/10/21 10/10/21 23:15 04:27 04:32 Temperature 98.0 F 98.0 F 97.6 F Pulse Rate 76 72 69 Respiratory 16 16 16 Rate Blood Pressure 125/35 113/19 107/50 O2 Sat by Pulse 96 99 99 Oximetry 10/10/21 10/10/21 08:09 08:56 Temperature 98.3 F Pulse Rate 71 Respiratory 20 Rate Blood Pressure 103/27 O2 Sat by Pulse 98 97 Oximetry CBC and BMP: 10/08/21 04:31 10/10/21 09:24 ABG, PT/INR, D-dimer: ABG ABG pH 7.275 pH Units (7.350-7.450) L 10/07/21 13:25 ABG pCO2 36.1 mm Hg 10/07/21 13:25 ABG pO2 116.3 mm Hg (80.0-90.0) H 10/07/21 13:25 ABG O2 Saturation 97.9 % (95.0-99.0) 10/07/21 13:25 PT/INR, D-dimer D-Dimer 1622.39 ng/mlDDU (0-234) H 10/07/21 13:50 Abnormal lab findings: Abnormal Labs 10/07/21 10/07/21 10/07/21 13:25 13:50 13:50 WBC 13.5 H RDW 16.2 H Lymph % (Auto) 6.3 L Anson % (Auto) Lymph # (Auto) 0.8 L Seg Neutrophils % 87.6 H Seg Neutrophils # 11.8 H D-Dimer ABG pH 7.275 L ABG pO2 116.3 H ABG HCO3 16.4 L ABG Base Excess -9.6 L Chloride 92.5 L Carbon Dioxide 13 L BUN 69 H Creatinine 16.8 H Glucose 134 H POC Glucose Calcium Ferritin Lactate Dehydrogenase Troponin T 0.547 H* NT-Pro-B Natriuret Pep Albumin 3.3 L 10/07/21 10/07/21 10/07/21 13:50 13:50 13:50 WBC RDW Lymph % (Auto) Anson % (Auto) Lymph # (Auto) Seg Neutrophils % Seg Neutrophils # D-Dimer 1622.39 H ABG pH ABG pO2 ABG HCO3 ABG Base Excess Chloride Carbon Dioxide BUN Creatinine Glucose POC Glucose Calcium Ferritin 675.6 H Lactate Dehydrogenase 323 H Troponin T NT-Pro-B Natriuret Pep Albumin 10/07/21 10/08/21 10/08/21 14:11 04:31 04:31 WBC RDW 15.6 H Lymph % (Auto) 12.3 L Anson % (Auto) 7.5 H Lymph # (Auto) Seg Neutrophils % 77.2 H Seg Neutrophils # 7.8 H D-Dimer ABG pH ABG pO2 ABG HCO3 ABG Base Excess Chloride 95.9 L Carbon Dioxide 17 L BUN 75 H Creatinine 16.1 H Glucose POC Glucose Calcium 8.3 L Ferritin Lactate Dehydrogenase Troponin T NT-Pro-B Natriuret Pep 02235 H Albumin 10/08/21 10/08/21 10/10/21 07:48 11:27 09:24 WBC RDW Lymph % (Auto) Anson % (Auto) Lymph # (Auto) Seg Neutrophils % Seg Neutrophils # D-Dimer ABG pH ABG pO2 ABG HCO3 ABG Base Excess Chloride 94.8 L Carbon Dioxide 18 L BUN 72 H Creatinine 15.2 H Glucose 117 H POC Glucose 57 L 120 H Calcium Ferritin Lactate Dehydrogenase Troponin T NT-Pro-B Natriuret Pep Albumin
--- NOTE | 2021-10-10 11:14 | Vascular Lab Report ---
DUPLEX DOPPLER LOWER EXTREMITY VEINS, BILATERAL INDICATION / CLINICAL INFORMATION: swelling. TECHNIQUE: Duplex doppler imaging was performed through the veins of both lower extremities using raj ous compression and other maneuvers. COMPARISON: Bilateral lower extremity venous Doppler 07/08/2021. FINDINGS: RIGHT COMMON FEMORAL VEIN: Negative. RIGHT FEMORAL VEIN: Negative. RIGHT POPLITEAL VEIN: Negative. RIGHT CALF VEINS: Negative. LEFT COMMON FEMORAL VEIN: Negative. LEFT FEMORAL VEIN: Negative. LEFT POPLITEAL VEIN: Negative. LEFT CALF VEINS: Negative. ADDITIONAL FINDINGS: Small left knee effusion noted. IMPRESSION: 1. No sonographic evidence for DVT in either lower extremity. 2. Small left knee joint effusion, which is nonspecific. Scribed by: Hanh Gan RDMS, RVT, CHANELLKS Scribed: 10/10/2021 9:49 AM I have reviewed the images, agree with this report, and edited this report as needed. Signer Name: Kojo Kitchen MD Signed: 10/10/2021 11:09 AM Workstation Name: [id number]
[2021-10-10 12:32] VITALS: BP 120/39
--- NOTE | 2021-10-10 14:14 | Discharge Summary ---
Providers - Providers Date of Admission: 10/07/21 15:35 Date of discharge: 10/10/21 Attending physician: ROBERT JIMENEZ 10/07/21 16:32 Consult to Physician [CONS] Routine Comment: Consulting Provider: HI SMITH Physician Instructions: Reason For Exam: chf 10/07/21 16:37 Consult to Physician [CONS] Routine Comment: Consulting Provider: FLO RICKS Physician Instructions: Reason For Exam: ESRD on PD 10/08/21 08:25 Consult to Physician [CONS] Routine Comment: Consulting Provider: HONEY LAZCANO Physician Instructions: Reason For Exam: RESPIRATORY FAILURE 10/09/21 13:54 Physical Therapy Evaluation and Treat [CONS] Routine Comment: Reason For Exam: Debility Primary care physician: [facility] Hospitalization Condition: Critical Disposition: HOME HEALTH CARE SERVICE Final Discharge Diagnosis (Prints w/discharge instructions): Acute hypoxic respiratory failure. Pneumonia, CAP. Coronary artery disease s/p PCI. Ischemic cardiomyopathy. End-stage renal disease on peritoneal dialysis- nephrology following. Pulmonary hypertension. Diabetes type 2 Time spent for discharge: 34 minutes Core Measure Documentation - Palliative Care Palliative Care/ Comfort Measures: Not Applicable - Core Measures Any of the following diagnoses?: history only Exam - Constitutional Vitals: Temp Pulse Resp BP Pulse Ox 97.6 F 80 20 120/39 99 10/10/21 11:39 10/10/21 11:39 10/10/21 11:39 10/10/21 11:39 10/10/21 11:39 Plan Activity: advance as tolerated Weight Bearing Status: Weight Bear as Tolerated Diet: low fat, low salt, diabetic Follow up with: PRIMARY CARE, [Primary Care Provider] - 3-5 Days Prescriptions: Azithromycin [Zithromax TAB] 500 mg PO QDAY #6 tablet
--- NOTE | 2021-10-10 15:30 | Progress Note ---
Assessment and Plan - Patient Problems (1) End stage renal disease Current Visit: Yes Status: Acute Plan to address problem: Cont manual peritoneal dialysis using 2L dwell volume, 1.5% dineal solution q6hrs, given borderline low BP on admission in the setting of Pneumonia. If Ultrafiltration/solute clearance is not adequate will increase to 2.5% dineal. Strict I/Os (2) Pneumonia Current Visit: Yes Status: Acute Plan to address problem: Cont IV ABXs with ceftriaxone, on supplemental O2 2L via NC (3) Acute respiratory failure Current Visit: Yes Status: Acute Qualifiers: Respiratory failure complication: hypoxia Qualified Code(s): J96.01 - Acute respiratory failure with hypoxia Plan to address problem: O2 sat improved on supplemental 2L O2 via NC (4) Acidosis Current Visit: Yes Status: Acute Plan to address problem: cont po sodium bicarb (5) Type 2 diabetes mellitus with diabetic chronic kidney disease Current Visit: No Status: Chronic Qualifiers: Diabetes mellitus senior care insulin use: with senior care use Chronic kidney disease stage: on chronic dialysis Qualified Code(s): E11.22 - Type 2 diabetes mellitus with diabetic chronic kidney disease; N18.6 - End stage renal disease; Z79.4 - intermediate accountant (current) use of insulin; Z99.2 - Dependence on renal dialysis Plan to address problem: diabetes management as per primary attending Subjective Date of service: 10/10/21 Principal diagnosis: ESRD Interval history: Patient awake, alert, in no acute respiratory distress, denies fever, chills, n/v/d Objective - Vital Signs Vital signs: Vital Signs - 12hr 10/10/21 10/10/21 10/10/21 04:27 04:32 08:00 Temperature 98.0 F 97.6 F Pulse Rate 72 69 Pulse Rate [ Bilateral Throughout] Respiratory 16 16 26 H Rate Respiratory Rate [Bilateral Throughout] Blood Pressure 113/19 107/50 O2 Sat by Pulse 99 99 97 Oximetry 10/10/21 10/10/21 10/10/21 08:09 08:56 11:00 Temperature 98.3 F Pulse Rate 71 Pulse Rate [ Bilateral Throughout] Respiratory 20 Rate Respiratory Rate [Bilateral Throughout] Blood Pressure 103/27 O2 Sat by Pulse 98 97 100 Oximetry 10/10/21 10/10/21 11:09 11:39 Temperature 97.6 F Pulse Rate 80 Pulse Rate [ 88 Bilateral Throughout] Respiratory 20 Rate Respiratory 16 Rate [Bilateral Throughout] Blood Pressure 120/39 O2 Sat by Pulse 99 Oximetry - General Appearance General appearance: well-developed, well-nourished, appears stated age EENT: ATNC, PERRL, mucous membranes moist Neck: no JVD Respiratory: Present: Clear to Ascultation Cardiology: regular, S1S2 Gastrointestinal: normoactive bowel sounds Integumentary: no rash Neurologic: no focal deficit, alert and oriented x3, strength 5/5, CN 3-12 intact Psychiatric: mood/affect appropriate, cooperative - Lab 10/08/21 04:31 10/10/21 09:24 Most recent lab results ABG pH 7.275 pH Units (7.350-7.450) L 10/07/21 13:25 ABG pCO2 36.1 mm Hg 10/07/21 13:25 ABG pO2 116.3 mm Hg (80.0-90.0) H 10/07/21 13:25 ABG HCO3 16.4 mmol/L (20.0-26.0) L 10/07/21 13:25 ABG O2 Saturation 97.9 % (95.0-99.0) 10/07/21 13:25 Calcium 8.9 mg/dL (8.4-10.2) 10/10/21 09:24 Medications & Allergies - Medications Allergies/Adverse Reactions: Allergies Iodinated Contrast Media Allergy (Verified 10/07/21 13:56) RENAL FAILURE Sulfa (Sulfonamide Antibiotics) Allergy (Verified 10/07/21 13:56) Swelling Home Medications: Home Medications Medication Instructions Recorded Confirmed Last Taken Type Simvastatin (Nf) [Zocor TAB] 20 mg PO QHS #30 tablet 07/18/16 10/09/21 07/05/21 Rx calcitrioL [Rocaltrol] 2 tab PO DAILY 04/05/18 10/09/21 07/05/21 History Sucralfate [Carafate] 1 gm PO ACHS 30 Days #120 tablet 11/18/19 10/09/21 07/05/21 Rx glipiZIDE [Glucotrol] 10 mg PO BID 07/08/21 10/09/21 07/05/21 History Furosemide [Lasix TAB] 40 mg PO BID 07/09/21 10/09/21 07/05/21 History Insulin NPH Hum/Reg Insulin Hm 15 unit SQ AC 07/09/21 10/09/21 07/05/21 History [Novolin 70-30 Flexpen] Pantoprazole [Protonix TAB] 40 mg PO BID 07/09/21 10/09/21 07/05/21 History Gabapentin 100 mg PO BID 10/09/21 10/09/21 3 Days Ago History ~10/06/21 Aspirin [Aspirin BABY CHEW TAB] 81 mg PO QDAY tab.chew 10/10/21 Unknown Rx Azithromycin [Zithromax TAB] 500 mg PO QDAY #6 tablet 10/10/21 Unknown Rx Ticagrelor [Brilinta] 90 mg PO BID tablet 10/10/21 Unknown Rx Active Medications: Generic Name Dose Route Start Last Admin Trade Name Freq PRN Reason Stop Dose Admin Acetaminophen 650 mg 10/07/21 15:35 10/07/21 21:42 Acetaminophen 325 Mg Tab PO 650 mg Q6H PRN Administration Pain MILD(1-3)/Fever >100.5/MCCOY Albuterol 2.5 mg 10/07/21 15:35 10/10/21 11:07 Albuterol 2.5 Mg/3 Ml Nebu IH 2.5 mg Q3HRT PRN Administration Shortness Of Breath Aspirin 81 mg 10/09/21 10:00 10/10/21 10:16 Aspirin 81 Mg Tab Chew PO 81 mg QDAY SELENA Administration Azithromycin 500 mg 10/08/21 10:00 10/10/21 10:16 Azithromycin 250 Mg Tab PO 10/12/21 10:01 500 mg QDAY SELENA Administration Protocol Calcitriol 1 mcg 10/08/21 10:00 10/10/21 10:16 Calcitriol 0.5 Mcg Cap PO 1 mcg DAILY SELENA Administration Dextrose 0 ml 10/08/21 07:59 Dextrose 10% *Hypoglycemia IV PRN PRN Hypoglycemia Gabapentin 100 mg 10/09/21 22:00 10/10/21 10:17 Gabapentin 100 Mg Cap PO 100 mg BID SELENA Administration Heparin Sodium (Porcine) 5,000 unit 10/09/21 22:00 10/10/21 10:17 Heparin 5,000 Unit/1 Ml Vial SUB-Q 5,000 unit Q12HR SELENA Administration Hydromorphone HCl 0.5 mg 10/07/21 15:35 10/08/21 17:31 Hydromorphone 1 Mg/1 Ml Inj IV 0.5 mg Q12H PRN Administration Pain , Severe (7-10) Ceftriaxone Sodium 2 gm in 100 mls @ 200 mls/hr 10/07/21 16:00 10/09/21 16:07 Rocephin/Ns 2 Gm/100 Ml IV 10/11/21 16:29 200 mls/hr Q24H SELENA Administration Protocol Insulin Human Isoph/Insulin Regular 15 unit 10/10/21 07:30 10/10/21 08:10 Insulin Nph/Regular 70/30 Inj SUB-Q Not Given AC SELENA Lisinopril 2.5 mg 10/07/21 22:00 10/09/21 23:37 Lisinopril 5 Mg Tab PO 2.5 mg BID SELENA Administration Metoprolol Tartrate 12.5 mg 10/07/21 22:00 10/09/21 23:37 Metoprolol Tartrate 25 Mg Tab PO 12.5 mg BID SELENA Administration Nitroglycerin 0.4 mg 10/07/21 15:35 Nitroglycerin 0.4 Mg Tab Subl SL .Q5MIN PRN Chest Pain Oxycodone/Acetaminophen 1 tab 10/07/21 15:35 Oxycodone /Acetaminophen 5-325mg Tab PO Q6H PRN Pain, Moderate (4-6) Pantoprazole Sodium 40 mg 10/07/21 22:00 10/10/21 10:16 Pantoprazole 40 Mg Tab PO 40 mg BID SELENA Administration Peritoneal Dialysis Solution 2,000 ml 10/09/21 02:00 10/10/21 08:11 Dialysate Lo Gaudencio 1.5% Soln 2000 Ml IP 2,000 ml Q6H SELENA Administration Pravastatin Sodium 40 mg 10/07/21 22:00 10/09/21 23:36 Pravastatin 40 Mg Tab PO 40 mg QHS SELENA Administration Sodium Bicarbonate 650 mg 10/08/21 22:00 10/10/21 10:16 Sodium Bicarbonate 650 Mg Tab PO 650 mg BID SELENA Administration Sodium Chloride 10 ml 10/07/21 22:00 10/09/21 23:35 Sodium Chloride 0.9% 10 Ml Flush Syringe IV 10 ml BID SELENA Administration Sodium Chloride 10 ml 10/07/21 15:35 Sodium Chloride 0.9% 10 Ml Flush Syringe IV PRN PRN LINE FLUSH Sucralfate 1 gm 10/07/21 16:30 03/04/22 10:16 Sucralfate 1 Gm Tab PO 1 gm ACHS SELENA Administration Ticagrelor 90 mg 10/09/21 10:00 10/10/21 10:16 Ticagrelor 90 Mg Tab PO 90 mg BID SELENA Administration
[2021-10-10] MEDS: cefTRIAXone/NS 2 GM/100 ML 2 GM/100 ML BAG IV SCH (16:00)
== END 2021-10-10 17:44 | disposition home health service (06) | DRG 280 ==
LOC: ED 12:56 → IMCU 15:35 → 4A 10-08 17:02
PROVIDERS: ADMIT Internal Medicine; ATTEND Internal Medicine
PROC: 5A09357 Assistance with Respiratory Ventilation, Less than 24 Consecutive Hours, Continuous Positive Airway Pressure (ICD-10-PCS; principal; 2021-10-07)
PROC: 4A033R1 Measurement of Arterial Saturation, Peripheral, Percutaneous Approach (ICD-10-PCS; 2021-10-07)
DX: I13.2 Hypertensive heart and chronic kidney disease with heart failure and with stage 5 chronic kidney disease, or end stage renal disease (principal); I50.21 Acute systolic (congestive) heart failure; I21.4 Non-ST elevation (NSTEMI) myocardial infarction; J18.9 Pneumonia, unspecified organism; J96.01 Acute respiratory failure with hypoxia; N18.6 End stage renal disease; J81.0 Acute pulmonary edema; R65.10 Systemic inflammatory response syndrome (SIRS) of non-infectious origin without acute organ dysfunction; Z20.822 Contact with and (suspected) exposure to COVID-19; E11.22 Type 2 diabetes mellitus with diabetic chronic kidney disease; K21.9 Gastro-esophageal reflux disease without esophagitis; I25.10 Atherosclerotic heart disease of native coronary artery without angina pectoris; Z83.3 Family history of diabetes mellitus; Z95.5 Presence of coronary angioplasty implant and graft; Z82.49 Family history of ischemic heart disease and other diseases of the circulatory system; Z90.49 Acquired absence of other specified parts of digestive tract; E66.01 Morbid (severe) obesity due to excess calories; Z68.36 Body mass index [BMI] 36.0-36.9, adult; Z86.73 Personal history of transient ischemic attack (TIA), and cerebral infarction without residual deficits; E78.2 Mixed hyperlipidemia; I27.20 Pulmonary hypertension, unspecified; I25.5 Ischemic cardiomyopathy
CPT/HCPCS: 36415; 71045; 78580; 80048; 80053; 80061; 82728; 82803; 82962; 83615; 83880; 84145; 84484; 85025; 85379; 86140; 93005; 93010; 93970; 94640; 94660; 94760; G0378; Q0162; A9540; J0696; J1170; J1644; J1940; J2405; J7030; U0003

== ENCOUNTER 2021-12-12 01:39 | Emergency (ER) | payer OTHER ==
--- NOTE | 2021-12-12 01:51 | Emergency Department Report ---
ED General Adult HPI - General Stated complaint: CARDIAC ARREST PUI?: No Time Seen by Provider: 12/12/21 01:46 Source: EMS - History of Present Illness Initial comments: This is a 56-year-old female with medical history of end-stage renal disease who is on peritoneal dialysis and also hypertension brought in by EMS with concerns of vomiting and witnessed arrest which happened about 30 minutes prior to arrival. A total of 3 epi and 1 bicarb 1 calcium chloride and 3 shocks were given by the EMS on route prior to arrival. On arrival, CPR in progress by EMS personnel and patient has a Tamar airway; after immediately transfer OF the patient FROM EMS stretcher to our ER bed CPR was paused and pulse was checked and there were no pulse and CPR was resumed immediately. Immediate verbal order was to keep 1 mg of epi and also 1 amp of bicarb. After 2 minutes of CPR for second pulse check there was still no pulse and patient's pupils were fixed and dilated and patient was cold to touch. - Related Data Home Medications Medication Instructions Recorded Confirmed Last Taken calcitrioL [Rocaltrol] 2 tab PO DAILY 04/05/18 10/15/21 07/05/21 Pantoprazole [Protonix TAB] 40 mg PO BID 07/09/21 10/15/21 07/05/21 Gabapentin 100 mg PO BID 10/09/21 10/15/21 3 Days Ago ~10/06/21 Previous Rx's Medication Instructions Recorded Last Taken Type Simvastatin (Nf) [Zocor TAB] 20 mg PO QHS #30 tablet 07/18/16 07/05/21 Rx Sucralfate [Carafate] 1 gm PO ACHS 30 Days #120 tablet 11/18/19 07/05/21 Rx Aspirin [Aspirin BABY CHEW TAB] 81 mg PO QDAY tab.chew 10/10/21 Unknown Rx Ticagrelor [Brilinta] 90 mg PO BID tablet 10/10/21 Unknown Rx Insulin Glargine [Lantus VIAL] 20 units SUB-Q QHS 30 Days 10/23/21 Unknown Rx Insulin Regular, Human [HumuLIN R] 5 units SUB-Q ACHS 30 Days 10/23/21 Unknown Rx Midodrine [Proamatine] 5 mg PO TID@0800,1200,1600 #90 10/23/21 Unknown Rx tablet Allergies Allergy/AdvReac Type Severity Reaction Status Date / Time Iodinated Contrast Media Allergy RENAL Verified 10/07/21 13:56 FAILURE Sulfa (Sulfonamide Allergy Swelling Verified 10/07/21 13:56 Antibiotics) sulfamethoxazole Allergy Swelling Verified 10/15/21 16:30 [From Bactrim] trimethoprim [From Bactrim] Allergy Swelling Verified 10/15/21 16:30 ED Review of Systems ROS: Stated complaint: CARDIAC ARREST Other details as noted in HPI Comment: Unobtainable due to pts medical conditions Constitutional: no symptoms reported Respiratory: no symptoms reported Endocrine: no symptoms reported Gastrointestinal: vomiting (per EMS) ED Past Medical Hx - Past Medical History Previous Medical History?: Yes Hx Hypertension: Yes Hx Heart Attack/AMI: Yes Hx Congestive Heart Failure: Yes Hx Diabetes: Yes Hx Deep Vein Thrombosis: No Hx Pulmonary Embolism: No Hx Liver Disease: No Hx Renal Disease: No Hx Sickle Cell Disease: No Hx Arthritis: No Hx Seizures: No Hx Kidney Stones: No Hx Asthma: No Hx COPD: No Hx Tuberculosis: No Hx Dementia: No Hx HIV: No Additional medical history: Fibromyalgia, gastric ulcer - Surgical History Hx Coronary Stent: Yes Hx Open Heart Surgery: No Hx Pacemaker: No Hx Internal Defibrillator: No Hx Cholecystectomy: Yes Hx Appendectomy: No Hx Breast Surgery: No Additional Surgical History: boils/cysts removed - Social History Smoking Status: Never Smoker - Medications Home Medications: Home Medications Medication Instructions Recorded Confirmed Last Taken Type Simvastatin (Nf) [Zocor TAB] 20 mg PO QHS #30 tablet 07/18/16 10/15/21 07/05/21 Rx calcitrioL [Rocaltrol] 2 tab PO DAILY 04/05/18 10/15/21 07/05/21 History Sucralfate [Carafate] 1 gm PO ACHS 30 Days #120 tablet 11/18/19 10/15/21 07/05/21 Rx Pantoprazole [Protonix TAB] 40 mg PO BID 07/09/21 10/15/21 07/05/21 History Gabapentin 100 mg PO BID 10/09/21 10/15/21 3 Days Ago History ~10/06/21 Aspirin [Aspirin BABY CHEW TAB] 81 mg PO QDAY tab.chew 10/10/21 10/15/21 Unknown Rx Ticagrelor [Brilinta] 90 mg PO BID tablet 10/10/21 10/15/21 Unknown Rx Insulin Glargine [Lantus VIAL] 20 units SUB-Q QHS 30 Days 10/23/21 Unknown Rx Insulin Regular, Human [HumuLIN R] 5 units SUB-Q ACHS 30 Days 10/23/21 Unknown Rx Midodrine [Proamatine] 5 mg PO TID@0800,1200,1600 #90 10/23/21 Unknown Rx tablet ED Physical Exam - General General appearance: obese - Head Head exam: Present: atraumatic - Eye Eye exam: Present: other (PUPIL ARE FIXED AND DILATED) - Respiratory Respiratory exam: Present: other (TAMAR AIRWAY AND BAG BY RT WITH GOOD CHEST RAISE) - Cardiovascular Cardiovascular Exam: Absent: other (NO PAULSE) - Skin Skin exam: Present: cyanosis Critical care attestation.: If time is entered above; I have spent that time in minutes in the direct care of this critically ill patient, excluding procedure time. ED Disposition Clinical Impression: Cardiopulmonary arrest Disposition: 20 Is pt being admited?: No Condition: Stable Time of Disposition: 01:52
== END 2021-12-12 06:47 ==
LOC: ED 01:39
DX: I46.9 Cardiac arrest, cause unspecified (principal); I11.0 Hypertensive heart disease with heart failure; I50.9 Heart failure, unspecified; E11.9 Type 2 diabetes mellitus without complications; Z88.2 Allergy status to sulfonamides; Z91.041 Radiographic dye allergy status; Z79.82 Long term (current) use of aspirin; Z79.899 Other long term (current) drug therapy; Z79.4 Long term (current) use of insulin
CPT/HCPCS: 92950; 99285